=== PATIENT | male | born 1960 | race African-American/Black ===

== ENCOUNTER 2019-10-20 23:15 | Inpatient (IN) | payer MEDICARE, OTHER ==
[2019-10-21] LABS: #Lymphocytes 1.1 thou/uL (1.20-3.40); #Monocytes 0.8 thou/uL (0.11-0.59); #Neutrophils 7.1 thou/uL (1.40-6.50); %Basophils 0.1 % (0.0-1.0); %Eosinophils 0.1 % (0.0-10.0); %Lymphocytes 11.8 % (21.0-51.0); %Monocytes 9.3 % (0.0-10.0); %Neutrophils 78.7 % (42.0-75.0); Hemoglobin 12.4 g/dL (14.0-18.0); Mean Corpuscular Hemoglobin 32.6 pg (27.0-31.0); Mean Platelet Volume 8.7 fL (7.4-10.4); Platelet Count 210 thou/uL (130-400); RBC Distribution Width 12.6 % (11.5-14.5); Red Blood Cell (RBC) Count 3.81 mill/uL (4.70-6.10)
[2019-10-21] MEDS ORDERED: Morphine 2 MG/ML SYRINGE ONE (00:11)
[2019-10-21 00:23] LABS: ALT (SGPT) 12 U/L (8-55); AST (SGOT) 35 U/L (5-34); Albumin 3.3 g/dL (3.5-5.0); Alkaline Phosphatase 75 U/L (40-110); Anion Gap 18 mmol/L (10-20); BUN (Urea Nitrogen) 83 mg/dL (8.4-25.7); Bilirubin, Total 1.2 mg/dL (0.2-1.2); Calc. Creatinine Clearance 0 mL/min (70-130); Calcium 9.1 mg/dL (7.8-10.44); Carbon Dioxide 22 mmol/L (22-29); Chloride 87 mmol/L (98-107); Estimated GFR-MDRD 27; Globulin 5.9 g/dL (2.4-3.5); Glucose 107 mg/dL (70-105); Lipase 81 U/L (8-78); Potassium 3.5 mmol/L (3.5-5.1); Protein, Total 9.2 g/dL (6.0-8.3); Sodium 123 mmol/L (136-145)
[2019-10-21 01:32] LABS: INR-International Normal Ratio 1.9; PTT 33.2 sec (22.9-36.1); Prothrombin Time 21.7 sec (12.0-14.7)
[2019-10-21] MEDS ORDERED: Lorazepam 2 MG/ML VIAL ONE (01:59)
--- NOTE | 2019-10-21 02:35 | PDOC.HHP ---
Hospitalist HPI - History of Present Illness abdominal pain History of Present Illness: Mr. Rooney is a 58-year-old male with a past medical history of cirrhosis, EtOH abuse, hernias, who presents for abdominal pain. Patient was recent recently admitted to [facility] however patient was discharged after pulling out his NG tube. Patient reports he left because he was able to keep food down. Since Saturday however he has not been able to tolerate solids or liquids and his abdominal pain has worsened. Reports his last bowel movement was 2 weeks ago. Does report passing some flatus but none over the past 2 days. Reports a few episodes of nonbloody nonbilious emesis. Denies history of esophageal varices. Patient denies chest pain, shortness of breath, palpitations. Denies numbness or weakness. Patient reports last drink was 3 weeks ago. 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 He is unsure of the physician's name. Work-up in the emergency room included a CT abdomen which showed a small bowel obstruction with multiple dilated loops of bowel. EKG normal sinus rhythm with no ischemic changes. Lipase 81, sodium 123, potassium 3.5, BUN/CR 83/2.95. AST /ALT 35/12. T bili 1.2 albumin 3.3. WBC 9, H/H 12.4/36.6.Patient received lorazepam, morphine, 1 L NS. Vital signs 116/91, 93, 18, 98.3, 97% on room air. Hospitalist ROS - Review of Systems Constitutional: reports: weakness. denies: fever, chills, sweats, malaise, other Eyes: denies: vision change ENT: denies: nose congestion, throat pain Respiratory: denies: cough, dry, shortness of breath, hemoptysis, SOB with excertion, pleuritic pain, sputum, wheezing, other Cardiovascular: denies: chest pain, palpitations, orthopnea, paroxysmal noc. dyspnea, edema, light headedness, other Gastrointestinal: reports: nausea, vomiting, abdominal pain, constipation. denies: diarrhea, melena, hematochezia, other Musculoskeletal: denies: neck pain, shoulder pain, arm pain, back pain, hand pain, leg pain, foot pain, other Skin: denies: rash, lesions, ean, bruising, other Neurological: denies: weakness, numbness, incoordination, change in speech, confusion, seizures, other - Medication Medications: Home medications include 1 atenolol 25 mg 2 furosemide 40 mg 3 meloxicam 15 mg For Protonix 40 mg 5 Spironolactone 25 mg 6 tramadol 50 mg 7 magnesium oxide 400 mg No known drug allergies Hospitalist History - Social History Other Social History: History of cirrhosis, alcohol abuse, status post cholecystectomy, status post hernia repair - Exam General Appearance: ill appearing (Cachexia) Eye: PERRL, anicteric sclera ENT: normocephalic atraumatic, no oropharyngeal lesions, moist mucosa Neck: no JVD Heart: no murmur, no gallops, no rubs, normal peripheral pulses Heart - other findings: Tachycardia Respiratory: CTAB, no wheezes, no rales, no ronchi, normal chest expansion, no tachypnea, normal percussion Gastrointestinal: tender to palpation, distended Gastrointestinal - other findings: Hyperactive bowel sounds Extremities: no cyanosis, no clubbing, no edema Skin - other findings: Poor skin turgor Neurological: normal sensation to touch, no weakness, no focal deficits Musculoskeletal: generalized weakness, diffuse muscle atrophy Psychiatric: A&O x 3, flat affect Hospitalist Results - Labs Result Diagrams: 10/20/19 23:53 10/20/19 23:52 Lab results: WBC 9.0 thou/uL (4.8-10.8) 10/20/19 23:53 Hgb 12.4 g/dL (14.0-18.0) L 10/20/19 23:53 Hct 36.6 % (42.0-52.0) L 10/20/19 23:53 MCV 96.0 fL (78.0-98.0) 10/20/19 23:53 Plt Count 210 thou/uL (130-400) 10/20/19 23:53 Neutrophils % 78.7 % (42.0-75.0) H 10/20/19 23:53 Sodium 123 mmol/L (136-145) L 10/20/19 23:52 Potassium 3.5 mmol/L (3.5-5.1) 10/20/19 23:52 Chloride 87 mmol/L (98-107) L 10/20/19 23:52 Carbon Dioxide 22 mmol/L (22-29) 10/20/19 23:52 BUN 83 mg/dL (8.4-25.7) H 10/20/19 23:52 Creatinine 2.95 mg/dL (0.7-1.3) H 10/20/19 23:52 Glucose 107 mg/dL (70-105) H 10/20/19 23:52 Lactic Acid 1.2 mmol/L (0.5-2.2) 10/20/19 23:52 Calcium 9.1 mg/dL (7.8-10.44) 10/20/19 23:52 Total Bilirubin 1.2 mg/dL (0.2-1.2) 10/20/19 23:52 AST 35 U/L (5-34) H 10/20/19 23:52 ALT 12 U/L (8-55) 10/20/19 23:52 Alkaline Phosphatase 75 U/L (40-110) 10/20/19 23:52 Serum Total Protein 9.2 g/dL (6.0-8.3) H 10/20/19 23:52 Albumin 3.3 g/dL (3.5-5.0) L 10/20/19 23:52 Lipase 81 U/L (8-78) H 10/20/19 23:52 Hospitalist H&P A/P - Problem (1) Cirrhosis of liver Code(s): K74.60 - UNSPECIFIED CIRRHOSIS OF LIVER Status: Acute (2) Hyponatremia Code(s): E87.1 - HYPO-OSMOLALITY AND HYPONATREMIA Status: Acute (3) Small bowel obstruction Code(s): K56.609 - UNSP INTESTNL OBST, UNSP TO PARTIAL VERSUS COMPLETE OBST Status: Acute - Plan Plan: Small bowel obstruction: 4-year-old male with past medical history of cirrhotic liver presents with subacute abdominal pain and no bowel movement for [address] Scan showed high grade obstruction, but no transition point identified. Moderate volume ascites. Hemodynamically stable, lactic acid 1.1, no leukocytosis or fever. Dr. Felton of general surgery consulted who recommended placement of NG tube and possible surgery in the morning. Plan: -NG tube -N.p.o. at midnight -Serial abdominal exams -Monitor electrolytes Hyponatremia: Presents with acute hyponatremia to 123. Na on 10/18/19 from OSH 134. Likely hypovolemic hyponatremia secondary to decreased p.o. intake versus hepatorenal syndrome. Plan: -Na q6hr -Urine osm, serum osm, urine Na -Gentle IV fluids with normal saline, not to correct more than 8 mEq in 24 hours -Consider nephrology consult Acute kidney failure: Presents with acute kidney injury with BUN/CR of 83/2.95. Baseline creatinine 1. Likely secondary to poor p.o. intake in setting of SBO and cirrhosis. Plan: -IVF -Monitor BMP -Avoid nephrotoxic agents where possible Liver cirrhosis: Meld score of 32, patient appears ill and cachectic. Hepatomegaly on exam, no ascites noted however patient acutely distended secondary to SBO. No asterixis. Patient A&O x4. Lactic acid 1.2, WBC 9.0, AST/ALT 35/12, T bili 12. Home medications include atenolol, furosemide, spironolactone, Protonix. Will continue once dosages are confirmed. Plan: -Ammonia level -PT/INR -Monitor for fever, low threshold for SBP abx EtOH abuse: History of alcohol abuse. Patient reports he quit using alcohol 3 weeks ago. Patient is unable to report how much alcohol he was drinking prior. Plan: -ASE protocol with Ativan -Magnesium -Thiamine, vitamin B12 DVT prophylaxis: SQ heparin DNR/DNI Case discussed with attending physician, Dr. Aquino who is in agreement with assessment and plan.
[2019-10-21] MEDS ORDERED: Ondansetron ODT 4 MG TAB SL PRN (03:23)
[2019-10-21] MEDS ORDERED: Ondansetron PF 4 MG/2 ML Vial IVP PRN (03:23)
[2019-10-21] MEDS ORDERED: Sodium Chloride 0.9% 1,000 ML IV SCH (04:30)
[2019-10-21] MEDS: Morphine 2 MG/ML VIAL SLOW IVP PRN (04:56)
[2019-10-21 06:18] LABS: Sodium 128 mmol/L (136-145)
--- NOTE | 2019-10-21 07:39 | RAD ---
CHEST 1 VIEW: INDICATION: NG tube placement. COMPARISON: Prior CT of the abdomen and pelvis dated 10/20/2018. FINDINGS: The dilated gas-filled loops of small bowel persist within the upper abdomen. Gastric catheter proje cts in the region of the gastric fundus. Lung bases are clear. Cholecystectomy clips are seen withi n the right upper quadrant. IMPRESSION: Gastric tube in the region of the gastric body. POS: BH
[2019-10-21] MEDS ORDERED: Thiamine 100 MG TAB PO SCH (09:00)
--- NOTE | 2019-10-21 09:01 | RAD ---
ABDOMINAL SURVEY WITH UPRIGHT CHEST AND 2 VIEW ABDOMEN: Date: 10/21/2019 INDICATION: Small bowel obstruction. Correlation made to CT of 10/21/2019 at 0740 hours. FINDINGS/IMPRESSION: PA chest shows lung de la garza to be clear. NG tube passes through the EG junction with tip in the gastri c fundus. 2 views of abdomen with supine and upright views show gas-filled dilated loops of small bowel. Differ ential air fluid levels are seen in the upright position. Findings are consistent with small bowel ob struction. POS: AGW
--- NOTE | 2019-10-21 09:05 | CT ---
PRELIMINARY REPORT/[facility]/EMERGENCY AFTER HOURS PROCEDURE: EXAM: CT Abdomen and Pelvis Without Intravenous Contrast CLINICAL HISTORY: PT PRESENT TO ED C/O OF DIFFUSE ABDOMINAL PAIN AND NAUSEA. PT STATES HE WAS DISCHARGED FROM ANOTHER H OSPITAL ON SATURDAY FOR UTI AND BOWEL OBSTRUCTION. PT STATES THAT HE HAS NOT HAD A BOWEL MOVEMENT IN 2 WEEKS AND HASNT BEEN ABLE TO KEEP ANYTHING DOWN. SURGICAL HX OF MESH HERNIA REPAIR 1 YEAR AGO TECHNIQUE: Axial computed tomography images of the abdomen and pelvis without intravenous contrast. CONTRAST: None. COMPARISON: None provided. FINDINGS: LUNG BASES: No basilar airspace consolidation or pleural effusion. Centrilobular emphysematous changes. LIVER: The liver has a mildly nodular contour. GALLBLADDER AND BILE DUCTS: Cholecystectomy clips in the gallbladder fossa. No ductal dilation. PANCREAS: Unremarkable. SPLEEN: Unremarkable. ADRENAL GLANDS: Unremarkable. KIDNEYS, URETERS, AND BLADDER: 6 mm calculus in the right renal pelvis. The left kidney is normal. No hydronephrosis. No ureteral or bladder calculi. STOMACH AND BOWEL: Multiple dilated loops of small bowel measure up to 4.5 cm in diameter. Associated mesenteric edema. The distal small bowel is collapsed. A transition point is not clearly identified. Colonic divert iculosis. APPENDIX: No CT evidence for appendicitis. PERITONEUM: Small to moderate volume ascites. No free air. LYMPH NODES: No lymphadenopathy. REPRODUCTIVE: Unremarkable as visualized. VASCULATURE: No aortic aneurysm. ABDOMINAL WALL AND SOFT TISSUES: Unremarkable. BONES: No fracture or suspicious osseous abnormality. Multilevel degenerative disc disease. IMPRESSION: Findings concerning for a high-grade small bowel obstruction. The transition point is not identified . Associated mesenteric edema and small to moderate volume ascites. Nonobstructive calculus at the right renal pelvis measuring 6 mm. Colonic diverticulosis with no evidence of diverticulitis. Mildly nodular contour of the liver suggestive of cirrhosis. ELECTRONICALLY SIGNED BY: Solis Brooks MD Oct 21, 2019 1:32:15 AM CDT This report is intended for review by the ordering physician only, in accordance of law. If you recei ve this report in error, please call [facility] at [phone]. FINAL REPORT: CT ABDOMEN AND PELVIS WITHOUT CONTRAST: I agree with the preliminary report provided. There is a high-grade partial small bowel obstruction with a suggested transition zone in the posterior right lower quadrant of the abdomen on image 53 of series 2. There is a nonobstructing calculus within the right renal pelvis. There are cholecystecto my changes. Slight nodular contour of the liver which may reflect underlying cirrhosis. There is mi ld ascites. POS: BH
[2019-10-21] MEDS ORDERED: Rocuronium Bromide 10 MG/ML (10ML VIAL) ONE (09:36)
[2019-10-21] MEDS ORDERED: Lidocaine 1% PF 5 ML VIAL ONE (09:36)
[2019-10-21] MEDS ORDERED: PROPOFOL 200 MG/20 ML VIAL ONE (09:36)
[2019-10-21] MEDS ORDERED: Succinylcholine Chloride 20 MG/ML 10 ml SYRINGE FS ONE (09:36)
[2019-10-21] MEDS: Sodium Chloride 0.9% 1,000 ML IV SCH ×3 (09:44→18:26)
[2019-10-21] MEDS: Cyanocobalamin (Vitamin B-12) 1,000 MCG TAB PO SCH (09:45)
[2019-10-21] MEDS: Heparin 5,000 UNITS/ML VIAL SC SCH ×3 (09:45→20:57)
[2019-10-21] MEDS ORDERED: Piperacillin/Tazobactam 3.375 GM in Sodium Chloride 0.9% 100 ML IVPB SCH (12:00)
--- NOTE | 2019-10-21 12:03 | PDOC.HOSPP ---
- Subjective Encounter Date: 10/21/19 Subjective: Patient is n.p.o. NG tube on intermittent suction. He still complaining of abdominal soreness. No bowel movements or passage of gas yet. - Objective Vital Signs & Weight: Vital Signs (12 hours) Temp Pulse Resp BP Pulse Ox 10/21/19 07:20 97.7 F 98 16 121/84 99 10/21/19 03:15 97.5 F L 99 18 124/86 100 Weight Weight 136 lb Result Diagrams: 10/20/19 23:53 10/21/19 06:00 Hospitalist ROS - Medication Medications: Active Medications Generic Name Dose Route Start Last Admin Trade Name Freq PRN Reason Stop Dose Admin Cyanocobalamin 1,000 mcg 10/21/19 09:00 10/21/19 09:45 Vitamin B-12 PO Not Given DAILY [facility] Heparin Sodium (Porcine) 5,000 units 10/21/19 09:00 10/21/19 09:45 Heparin SC 5,000 units TID KACI Administration Sodium Chloride 1,000 mls @ 115 mls/hr 10/21/19 07:37 10/21/19 09:44 Normal Saline 0.9% IV Not Given .[id number] KACI Morphine Sulfate 2 mg 10/21/19 04:13 10/21/19 04:56 Morphine SLOW IVP 2 mg Q4H PRN Administration Moderate to Severe Pain (6-10) Thiamine HCl 100 mg 10/21/19 09:00 10/21/19 09:45 Thiamine PO Not Given DAILY KACI - Exam General Appearance: awake alert ENT: normocephalic atraumatic Neck: supple, no JVD Heart: RRR Respiratory: normal chest expansion, no tachypnea Gastrointestinal: soft, tender to palpation, distended Neurological: cranial nerve grossly intact, no new deficit Hosp A/P (1) Small bowel obstruction Code(s): K56.609 - UNSP INTESTNL OBST, UNSP TO PARTIAL VERSUS COMPLETE OBST Status: Acute (2) Cirrhosis of liver Code(s): K74.60 - UNSPECIFIED CIRRHOSIS OF LIVER Status: Acute (3) Hyponatremia Code(s): E87.1 - HYPO-OSMOLALITY AND HYPONATREMIA Status: Acute - Plan Small bowel obstruction with dehydration and hypovolemic hyponatremia. Continue n.p.o. and NG tube with low intermittent suction. Surgical team consulted. Sodium level is improving. Continue gentle hydration.
[2019-10-21 12:28] LABS: Phosphorus 2.7 mg/dL (2.3-4.7)
[2019-10-21 12:31] LABS: Anion Gap 20 mmol/L (10-20); BUN (Urea Nitrogen) 69 mg/dL (8.4-25.7); Calc. Creatinine Clearance 30 mL/min (70-130); Carbon Dioxide 18 mmol/L (22-29); Chloride 94 mmol/L (98-107); Estimated GFR-MDRD 36; Glucose 99 mg/dL (70-105); Magnesium 2.1 mg/dL (1.6-2.6); Potassium 3.3 mmol/L (3.5-5.1); Sodium 129 mmol/L (136-145)
[2019-10-21] MEDS ORDERED: Sodium Chloride 0.9% 100 ML ONE (12:41)
[2019-10-21] MEDS ORDERED: Piperacillin/Tazobactam 3.375 GM VIAL ONE (12:41)
[2019-10-21 13:06] LABS: SARS-CoV-2 MS2 Positive; SARS-CoV-2 N Gene Negative; SARS-CoV-2 S Gene Negative; SARS-CoV-2 by NAA Not Detected (NotDetected); SARS-CoV-2 orf1ab Negative
[2019-10-21] MEDS ORDERED: SUGAMMADEX SODIUM 200 MG/2 ML VIAL ONE (13:27)
[2019-10-21] MEDS ORDERED: Fentanyl 100 MCG/2 ML VIAL ONE ×2 (13:27→15:10)
--- NOTE | 2019-10-21 13:34 | CON ---
DATE OF CONSULTATION: HISTORY OF PRESENT ILLNESS: Pio Rooney is a 58-year-old black male, four weeks alcohol cessation, prior to that alcoholism, has had this several weeks of GI problems with nausea, vomiting, and abdominal distention. He has lost weight. He has become weak. He has not been able to ambulate. The patient lives with his in [place]. They took him to [place] 8 days ago where he stayed there in the hospital until he was released Saturday 4 days ago. Apparently, the patient removed his NG tube accidentally and he was discharged home. He came to our emergency room yesterday complaining of nausea, vomiting, abdominal distention, could not hold anything down. His white count was 9 and hemoglobin was 12. His sodium was 123, potassium 3.5, BUN 83, creatinine 2.95, and GFR 27. His repeat sodium this morning was 128. The patient's magnesium was 2.1. He had a CAT scan of the abdomen and pelvis without contrast noting changes consistent with bowel obstruction. There was no gas or stool in his colon. The patient reports he has not passed stool or flatus in over a week. He has an NG tube placed and has had feculent output. The patient has been rehydrated. His albumin is 3.3 and lipase is 81. His abdomen is distended and tympanitic. Repeat abdominal x-rays this morning revealed changes consistent with a complete bowel obstruction. Given the chronicity of his problems, I would recommend laparoscopy, possible laparotomy today. I have discussed with the patient, who agrees. I have called the patient's and niece and discussed with them on telephone these recommendations and they agreed. We will plan placement of central line. We will request dietitian to aid in TPN recommendations perioperatively. We will plan that operation today. There have been no symptoms of COVID. ALLERGIES: NONE. HABITS: Tobacco, one cigarette per day. Alcohol, none for 3.5 to 4 weeks. Two to three or more mixed drinks a day prior to that. MEDICATIONS: 1. Meloxicam 15 mg a day. 2. Tramadol p.r.n. pain. 3. Spironolactone 25 mg a day. 4. Omeprazole 40 mg a day. 5. Furosemide 40 mg a day. 6. Atenolol 25 mg daily. PAST SURGICAL HISTORY: Laparoscopic cholecystectomy; umbilical hernia repair with mesh in the past, it has recurred, it is reducible; left inguinal hernia repair. PAST MEDICAL HISTORY: Cirrhosis secondary to alcoholism. He has had viral studies, have been negative. He has had paracentesis in the past 3 times this year, but since he has been placed on medical therapy, he has not had problems with accumulation of ascites. REVIEW OF SYSTEMS: Otherwise, noncontributory. FAMILY HISTORY: Noncontributory. PHYSICAL EXAMINATION: VITAL SIGNS: Weight 136 pounds, height 5 feet 11 inches, BMI 19, temperature 97.9, pulse 98, respirations 16, and blood pressure 118/89. LUNGS: Clear to auscultation. CARDIAC: Regular rate and rhythm without murmur or gallop. ABDOMEN: Soft, distended, and tympanitic. No fluid wave. Umbilical hernia easily reducible. There is a very small defect less than a centimeter. Scars per history of laparoscopic cholecystectomy. EXTREMITIES: No ankle edema. LABORATORY DATA: Sodium 123 on admission, 128 on repeat this morning; chloride 87; BUN and creatinine of 83 and 2.95; GFR 27; lactate acid 1.2; bilirubin 1.2; AST and ALT of 35 and 12 respectively; alk phos 75; lipase 81. PT 21, INR 1.9, and PTT 33. ASSESSMENT/PLAN: 1. CAT scan, radiological findings, history and exam all consistent with bowel obstruction complete. I do not see any benefit and performed a small bowel follow-through. We would recommend laparoscopy, possible laparotomy, and placement of a central line. I have discussed with the patient and his family members per telephone. They all agree. Plan is to perform that today. 2. Alcoholism. 3. Severe deconditioning and weakness. We will ask Physical Therapy to see him in consult, ambulation, activity. Job ID: [id number]
[2019-10-21] MEDS ORDERED: Lidocaine 1% w/Epinephrine 1:100K 20 ML VIAL ONE (13:58)
[2019-10-21] MEDS ORDERED: Bupivacaine PF 0.5% 30 ML VIAL ONE (13:58)
[2019-10-21] MEDS ORDERED: Dextrose 50% Abboject 50 ML SYRINGE SLOW IVP PRN (15:27)
[2019-10-21] MEDS ORDERED: Dextrose 5% in Water 1,000 ML IV PRN (15:27)
[2019-10-21] MEDS ORDERED: Multivitamins, Adult 10 ML, Folic Acid 1 MG, Thiamine HCl 100 MG in Dextrose 5 %-0.45 %... IV SCH (16:00)
--- NOTE | 2019-10-21 16:48 | RAD ---
Chest one view HISTORY: Central line placement. COMPARISON: Earlier exam on same date. FINDINGS: Cardiac silhouette and pulmonary vasculature are stable. Mediastinum is midline. Tip of a n ew left internal jugular central venous catheter projects over the right atrium. No evidence of pneumothorax. Nasogastric tube descends the abdomen with the proximal port at the level of the GE junction. Free intraperitoneal gas in the left upper quadrant consistent with recent surgery. No lobar consolidation. IMPRESSION : Left internal jugular catheter in good radiographic position. Nasogastric tube should probably be advanced approximately 10 cm for better positioning. Interval abdominal surgery.
[2019-10-21] MEDS: Albumin 25% 25 GM/100 ML BOT IVPB SCH ×2 (17:10→20:59)
[2019-10-21] MEDS ORDERED: [UNRECOGNIZED DRUG - OTHER] IV SCH ×2 (19:00→22:00)
[2019-10-21] MEDS ORDERED: SODIUM CHLORIDE IV SCH ×2 (19:00→22:00)
[2019-10-21] MEDS ORDERED: POTASSIUM ACETATE IV SCH ×2 (19:00→22:00)
[2019-10-21] MEDS ORDERED: POTASSIUM CHLORIDE IV SCH ×2 (19:00→22:00)
--- NOTE | 2019-10-21 19:23 | OP ---
DATE OF PROCEDURE: 10/21/2019 PREOPERATIVE DIAGNOSES: 1. Small-bowel obstruction secondary to adhesions from prior surgery. 2. Umbilical hernia. 3. History of alcoholism. 4. Cirrhosis. 5. Severe dehydration. 6. Malnutrition. POSTOPERATIVE DIAGNOSES: 1. Small-bowel obstruction secondary to adhesions from prior surgery. 2. Umbilical hernia. 3. History of alcoholism. 4. Cirrhosis. 5. Severe dehydration. 6. Malnutrition. 7. Bowel obstruction secondary to adhesions from previous ventral hernia repair with mesh, upper abdomen, midline. PROCEDURES PERFORMED: Laparoscopic adhesiolysis. Umbilical hernia repair without mesh. Resection of redundant skin and subcutaneous tissue. Left IJ central line, ultrasound used. ANESTHESIA: General, local 0.5% Marcaine 30 mL mixed with 1% Xylocaine with epinephrine 20 mL. PROCEDURE IN DETAIL: Patient was taken to the operating room. Under general anesthesia, Clements catheter was placed. Right radial arterial line was placed. Neck and chest were prepared with ChloraPrep and draped in routine fashion. Ultrasound was used to cannulate the left internal jugular vein. J-wire threaded, trocar catheter removed. Skin site enlarged sharply. Dilator was placed, removed, distal port of the triple-lumen catheter was placed over the J-wire into the superior vena cava and J-wire was removed. Catheter was secured with 2 interrupted suture of 3-0 silk. Each port was aspirated of blood, flushed with saline solution, connected IV fluid solution. Abdomen was clipped of hair, prepared with ChloraPrep and draped in routine fashion. Patient had a very large umbilical hernia with redundant stressed out skin with a small defect. This was easily reducible. Once the hair on his abdomen was clipped, it was appreciated that he had an area as the patient and family described the laparoscopic mesh repair of incisional hernia of upper abdomen. There were adhesions noted. Once laparoscopy was initiated, left lateral subcostal incision was made, pneumoperitoneum to 15 mmHg was obtained with a Veress needle, replaced with a 5 port laparoscope inserted. Left mid lateral abdominal incision was made, left lower quadrant lateral incision made, and 5 ports placed. Small bowel was markedly dilated. There were adhesions of omentum to the anterior abdominal wall from the previous hernia repair in the midline located between the umbilicus and the xiphoid, upper abdomen midline. These were taken down with the LigaSure. There was a band of tissue causing the complete bowel obstruction that was taken down. Bowel was markedly dilated. I could not evaluate all the bowel, but I was able to appreciate the terminal ileum that was markedly decompressed and very small consistent with chronic obstruction. Small bowel was traced retrograde back to the area of transition where band was noted more proximal to which there was markedly dilated small bowel. It was felt at this point, although I had not evaluated the entire bowel that this was the offending problem. There was a small amount of ascites that was evacuated with the suction. Pneumoperitoneum reduced. Good hemostasis noted. All instruments removed. The umbilical hernia had markedly dilated skin. The skin was excised elliptically transversely removing the thinned out skin. The fascial defect identified, closed in [id number] type fashion with interrupted suture of 0 PDS pop offs. Mesh was not used as the defect was very small. The subcutaneous tissues were approximated with 3-0 Monocryl, skin with subdermal 4-0 Monocryl and [place] glue applied. Trocar sites skin approximated with 4-0 Monocryl subcuticular. Dermabond applied. Local anesthetic was infiltrated in the skin and subcutaneous tissue about the operative site. Patient tolerated the procedure well. Job ID: [id number]
[2019-10-22] MEDS: Albumin 25% 25 GM/100 ML BOT IVPB SCH ×3 (02:59→18:03)
[2019-10-22 03:12] LABS: INR-International Normal Ratio 1.8; Prothrombin Time 20.5 sec (12.0-14.7)
[2019-10-22 03:40] LABS: ALT (SGPT) 9 U/L (8-55); AST (SGOT) 28 U/L (5-34); Albumin 3.5 g/dL (3.5-5.0); Alkaline Phosphatase 51 U/L (40-110); Anion Gap 19 mmol/L (10-20); BUN (Urea Nitrogen) 57 mg/dL (8.4-25.7); Bilirubin, Total 1.3 mg/dL (0.2-1.2); Calc. Creatinine Clearance 34 mL/min (70-130); Calcium 8.4 mg/dL (7.8-10.44); Carbon Dioxide 16 mmol/L (22-29); Chloride 102 mmol/L (98-107); Estimated GFR-MDRD 41; Globulin 3.7 g/dL (2.4-3.5); Glucose 97 mg/dL (70-105); Potassium 3.2 mmol/L (3.5-5.1); Protein, Total 7.2 g/dL (6.0-8.3); Sodium 134 mmol/L (136-145)
[2019-10-22 04:43] LABS: Band 24 % (5-11); Hemoglobin 11.5 g/dL (14.0-18.0); Hypochromia SLIGHT = 6-15 cells (100X) (0-5/hpf); Lymphocytes 1 % (21-51); MDiff Complete? YES; Mean Corpuscular Hemoglobin 31.9 pg (27.0-31.0); Mean Corpuscular Volume 96.8 fL (78.0-98.0); Mean Platelet Volume 8.9 fL (7.4-10.4); Monocytes 3 % (0-10); Neutrophil 72 % (42-75); Platelet Count 201 thou/uL (130-400); Platelet Morphology Comment Appears Adequate; RBC Distribution Width 12.7 % (11.5-14.5); Red Blood Cell (RBC) Count 3.61 mill/uL (4.70-6.10); White Blood Cell (WBC) Count 21.4 thou/uL (4.8-10.8)
--- NOTE | 2019-10-22 09:17 | PRG ---
DATE OF SERVICE: 10/22/2019 SUBJECTIVE: Mr. Rooney is doing well today. He feels much better after having a small-bowel obstruction release. OBJECTIVE: VITAL SIGNS: Temperature 98 degrees, blood pressure 117/79. Urine output is good 725 mL postop. Clements in place. We will remove tomorrow morning Saturday. Gastric drainage 350 mL. LUNGS: Clear to auscultation. CARDIAC: Regular rhythm. No murmur or gallop. ABDOMEN: Soft, slightly distended, tympanitic. Bowel sounds present. He has passed flatus. EXTREMITIES: No edema. LABORATORY DATA: White count 21,000, hemoglobin 11. Differential 24% bands. Sodium 134, potassium 3.2, carbon dioxide 16, chloride 102, BUN 57, creatinine 2.04, GFR 41. ASSESSMENT AND PLAN: 1. Small-bowel obstruction, chronic with resulting malnutrition. Today, we can remove his NG tube. Continue sips and chips, and sips of water, ice chips. We would continue total parenteral nutrition. Hopefully, if he does well without vomiting, we can advance him to clear to full liquids later today or tomorrow. 2. Deconditioning, physical therapy, mobility, nurse is to get him up in a chair 3 to 4 times a day. He is up in a chair this morning. 3. Clements catheter. Remove in the morning. 4. Malnutrition. He is on total parenteral nutrition. 5. Alcoholism. Alcohol cessation 4 weeks ago. He has committed alcohol cessation. Continue multivitamins and total parenteral nutrition and support. Job ID: [id number]
[2019-10-22] MEDS: Cyanocobalamin (Vitamin B-12) 1,000 MCG TAB PO SCH (09:29)
[2019-10-22] MEDS: Sodium Chloride 0.9% 1,000 ML IV SCH ×2 (09:30→18:07)
[2019-10-22] MEDS: Heparin 5,000 UNITS/ML VIAL SC SCH ×2 (09:30→20:28)
[2019-10-22] MEDS: Morphine 2 MG/ML VIAL SLOW IVP PRN ×2 (12:15→20:29)
--- NOTE | 2019-10-22 18:25 | PDOC.HOSPP ---
- Subjective Encounter Date: 10/22/19 Subjective: The patient stated that his abdominal pain is better today. - Objective Vital Signs & Weight: Vital Signs (12 hours) Temp Pulse Resp BP Pulse Ox 10/22/19 15:35 97.7 F 98 16 147/79 H 98 10/22/19 13:56 100 10/22/19 10:25 97.4 F L 99 16 125/86 100 10/22/19 07:31 98.0 F 10/22/19 07:26 100 Weight Admit Weight 136 lb Weight 136 lb Most Recent Monitor Data Heart Rate from ECG 105 NIBP 108/80 NIBP BP-Mean 89 Respiration from ECG 26 SpO2 100 I&O: 10/21/19 10/22/19 10/23/19 06:59 06:59 06:59 Intake Total 2154 Output Total 1075 Balance 1079 Result Diagrams: 10/22/19 02:44 10/22/19 02:44 Additional Labs: Accuchecks 10/22/19 10/22/19 10/21/19 17:53 06:12 19:05 POC Glucose 169 H 219 H 92 Hospitalist ROS - Medication Medications: Active Medications Generic Name Dose Route Start Last Admin Trade Name Freq PRN Reason Stop Dose Admin Cyanocobalamin 1,000 mcg 10/21/19 09:00 10/22/19 09:29 Vitamin B-12 PO 1,000 mcg DAILY [facility] Administration Heparin Sodium (Porcine) 5,000 units 10/21/19 21:00 10/22/19 09:30 Heparin SC 5,000 units BID [facility] Administration Sodium Chloride 1,000 mls @ 115 mls/hr 10/21/19 07:37 10/22/19 18:07 Normal Saline 0.9% IV 1,000 mls .[id number] [facility] Administration Sodium Chloride 140 meq/ 1,551.8159 mls @ 63.784 mls/hr 10/21/19 19:00 02:47 Potassium Acetate 10 meq/ IV 1,551.8159 mls Potassium Chloride 40 meq/ INF [facility] Administration Calcium Chloride 10 meq/ Magnesium Sulfate 10 meq/ Multivitamins 10 ml/ Chromium/ Copper/Manganese/Seleni/Zn 1 ml/ Fat Emulsion Intravenous 250 ml/ Dextrose/Water/ Sterile Water/ Amino Acids Folic Acid 1 mg/ Thiamine HCl 51.2 mls @ 102.4 mls/hr 10/22/19 09:00 09:29 100 mg/ Sodium Chloride IV 51.2 mls 0900 [facility] Administration As Directed Morphine Sulfate 2 mg 10/21/19 04:13 10/22/19 12:15 Morphine SLOW IVP 2 mg Q4H PRN Administration Moderate to Severe Pain (6-10) Sodium Chloride 10 ml 10/21/19 21:00 10/22/19 09:30 Flush - Normal Saline IVF 10 ml Q12HR [facility] Administration - Exam General Appearance: awake alert ENT: normocephalic atraumatic Neck: supple, no JVD Heart: RRR Respiratory: normal chest expansion, no tachypnea Gastrointestinal: soft, non-tender, non-distended, normal bowel sounds Neurological: cranial nerve grossly intact, no focal deficits Hosp A/P (1) Small bowel obstruction Code(s): K56.609 - UNSP INTESTNL OBST, UNSP TO PARTIAL VERSUS COMPLETE OBST Status: Acute (2) Cirrhosis of liver Code(s): K74.60 - UNSPECIFIED CIRRHOSIS OF LIVER Status: Acute (3) Hyponatremia Code(s): E87.1 - HYPO-OSMOLALITY AND HYPONATREMIA Status: Acute (4) BRANDI (acute kidney injury) Code(s): N17.9 - ACUTE KIDNEY FAILURE, UNSPECIFIED Status: Acute (5) Hypokalemia Code(s): E87.6 - HYPOKALEMIA Status: Acute - Plan Status post lysis of the adhesions laparoscopically and repair of deep umbilical hernia. NG tube was discontinued. No nausea or vomiting. Tolerating TPN. Hypokalemia is present. Replace potassium. Creatinine level is improving sodium level is back to normal.
[2019-10-22] MEDS ORDERED: Potassium Chloride 20 MEQ TAB PO SCH (18:30)
[2019-10-22] MEDS: [UNRECOGNIZED DRUG - OTHER] IV SCH (22:24)
[2019-10-22] MEDS: SODIUM CHLORIDE IV SCH (22:24)
[2019-10-22] MEDS: POTASSIUM CHLORIDE IV SCH (22:24)
[2019-10-22] MEDS: POTASSIUM ACETATE IV SCH (22:24)
--- NOTE | 2019-10-22 22:47 | PDOC.FMACP ---
Advance Care Planning - Problem (1) Palliative care encounter Status: Acute Code(s): Z51.5 - ENCOUNTER FOR PALLIATIVE CARE (2) BRANDI (acute kidney injury) Status: Acute Code(s): N17.9 - ACUTE KIDNEY FAILURE, UNSPECIFIED (3) Small bowel obstruction Status: Acute Code(s): K56.609 - UNSP INTESTNL OBST, UNSP TO PARTIAL VERSUS COMPLETE OBST - Note Participants: patient, palliative care Summary: Palliative Care introduced Advanced Care Planning. The diagnosis, prognosis and goals of care were discussed. Appropriate forms and documentation to accomplish the goals of care were discussed. All questions were answered. Mr Rooney states he has directives and MPOA completed and at home, relayed he will have his daughter bring to the hospital for to place on his chart for medical records. The Palliative Care Team will continue to assist with completion of any outstanding forms as identified. Time Spent (mins): 15
[2019-10-23] MEDS: Morphine 2 MG/ML VIAL SLOW IVP PRN ×5 (01:36→19:33)
[2019-10-23 03:49] LABS: #Lymphocytes 0.8 thou/uL (1.20-3.40); #Neutrophils 12.7 thou/uL (1.40-6.50); %Eosinophils 0.1 % (0.0-10.0); %Lymphocytes 5.6 % (21.0-51.0); %Neutrophils 87.3 % (42.0-75.0); Hemoglobin 9.3 g/dL (14.0-18.0); Mean Corpuscular HGB CONC 33.1 g/dL (32.0-36.0); Mean Corpuscular Hemoglobin 32.3 pg (27.0-31.0); Mean Corpuscular Volume 97.5 fL (78.0-98.0); Platelet Count 146 thou/uL (130-400); RBC Distribution Width 12.8 % (11.5-14.5); Red Blood Cell (RBC) Count 2.88 mill/uL (4.70-6.10); White Blood Cell (WBC) Count 14.6 thou/uL (4.8-10.8)
[2019-10-23 04:09] LABS: ALT (SGPT) Less than 7 U/L (8-55); AST (SGOT) 20 U/L (5-34); Albumin 3.5 g/dL (3.4-4.8); Alkaline Phosphatase 43 U/L (40-110); Anion Gap 12 mmol/L (10-20); BUN (Urea Nitrogen) 37 mg/dL (8.4-25.7); Bilirubin, Total 0.6 mg/dL (0.2-1.2); Calc. Creatinine Clearance 50 mL/min (70-130); Calcium 8.9 mg/dL (7.8-10.44); Carbon Dioxide 20 mmol/L (23-31); Chloride 112 mmol/L (98-107); Estimated GFR-MDRD 65; Globulin 3.3 g/dL (2.4-3.5); Glucose 164 mg/dL (80-115); Potassium 3.5 mmol/L (3.5-5.1); Protein, Total 6.8 g/dL (5.8-8.1); Sodium 140 mmol/L (136-145)
[2019-10-23] MEDS: Sodium Chloride 0.9% 1,000 ML IV SCH ×2 (06:38→13:06)
[2019-10-23] MEDS: Heparin 5,000 UNITS/ML VIAL SC SCH ×2 (08:09→22:23)
[2019-10-23] MEDS: Cyanocobalamin (Vitamin B-12) 1,000 MCG TAB PO SCH (08:09)
--- NOTE | 2019-10-23 09:58 | PDOC.HOSPP ---
- Subjective Encounter Date: 10/23/19 Subjective: The patient reported worsening abdominal discomfort. His abdomen is more distended than yesterday. Denies any bowel movements but is still passing gas. Denies nausea or vomiting. Tolerating liquid diet. - Objective Vital Signs & Weight: Vital Signs (12 hours) Temp Pulse Resp BP Pulse Ox 10/23/19 07:27 98.3 F 116 H 18 143/92 H 100 10/23/19 04:46 98.3 F 123 H 24 H 123/88 100 10/23/19 04:41 98.3 F 123 H 24 H 124/88 100 10/23/19 03:33 99.4 F 120 H 32 H 115/76 100 10/23/19 00:30 98.7 F 98 32 H 122/80 98 Weight Admit Weight 136 lb Weight 136 lb Most Recent Monitor Data Heart Rate from ECG 105 NIBP 108/80 NIBP BP-Mean 89 Respiration from ECG 26 SpO2 100 I&O: 10/22/19 10/23/19 10/24/19 06:59 06:59 06:59 Intake Total 2154 4663 Output Total 1075 1550 Balance 1079 3113 Result Diagrams: 10/23/19 03:35 10/23/19 03:35 Additional Labs: Accuchecks 10/23/19 10/23/19 10/22/19 05:15 00:00 17:53 POC Glucose 133 H 156 H 169 H Hospitalist ROS - Medication Medications: Active Medications Generic Name Dose Route Start Last Admin Trade Name Yazanq PRN Reason Stop Dose Admin Cyanocobalamin 1,000 mcg 10/21/19 09:00 10/23/19 08:09 Vitamin B-12 PO 1,000 mcg DAILY [facility] Administration Heparin Sodium (Porcine) 5,000 units 10/21/19 21:00 10/23/19 08:09 Heparin SC 5,000 units BID [facility] Administration Sodium Chloride 1,000 mls @ 115 mls/hr 10/21/19 07:37 10/23/19 06:38 Normal Saline 0.9% IV 1,000 mls .[id number] [facility] Administration Folic Acid 1 mg/ Thiamine HCl 51.2 mls @ 102.4 mls/hr 10/22/19 09:00 08:20 100 mg/ Sodium Chloride IV 51.2 mls 0900 [facility] Administration As Directed Sodium Chloride 140 meq/ 1,551.8159 mls @ 63.784 mls/hr 10/22/19 22:00 22:24 Potassium Acetate 10 meq/ IV 1,551.8159 mls Potassium Chloride 40 meq/ 2200 [facility] Administration Calcium Chloride 10 meq/ Magnesium Sulfate 10 meq/ Multivitamins 10 ml/ Chromium/ Copper/Manganese/Seleni/Zn 1 ml/ Fat Emulsion Intravenous 250 ml/ Dextrose/Water/ Sterile Water/ Amino Acids Morphine Sulfate 2 mg 10/21/19 04:13 10/23/19 06:37 Morphine SLOW IVP 2 mg Q4H PRN Administration Moderate to Severe Pain (6-10) Sodium Chloride 10 ml 10/21/19 21:00 10/23/19 08:09 Flush - Normal Saline IVF 10 ml Q12HR [facility] Administration - Exam General Appearance: awake alert ENT: normocephalic atraumatic Neck: supple, no JVD Respiratory: no tachypnea, normal percussion Gastrointestinal: soft, tender to palpation, distended Neurological: cranial nerve grossly intact, no new deficit Hosp A/P (1) Small bowel obstruction Code(s): K56.609 - UNSP INTESTNL OBST, UNSP TO PARTIAL VERSUS COMPLETE OBST Status: Acute (2) Cirrhosis of liver Code(s): K74.60 - UNSPECIFIED CIRRHOSIS OF LIVER Status: Acute (3) Hyponatremia Code(s): E87.1 - HYPO-OSMOLALITY AND HYPONATREMIA Status: Acute (4) BRANDI (acute kidney injury) Code(s): N17.9 - ACUTE KIDNEY FAILURE, UNSPECIFIED Status: Acute (5) Hypokalemia Code(s): E87.6 - HYPOKALEMIA Status: Acute - Plan Status post lysis of the adhesions laparoscopically and repair of deep umbilical hernia. NG tube was discontinued. No nausea or vomiting. BRANDI is improving. The patient is tolerating liquid diet and TPN. Encourage ambulation.
[2019-10-23] MEDS ORDERED: Furosemide 40 MG/4 ML VIAL SLOW IVP SCH (13:00)
--- NOTE | 2019-10-23 13:17 | RAD ---
RADIOGRAPH CHEST 1 VIEW: DATE: 10/23/2019 HISTORY: 59-year-old male with central venous catheter. COMPARISON: 10/21/2019 FINDINGS: There are no airspace densities, pulmonary edema, pneumothorax, or cardiomegaly. The lateral costophr enic angles are sharp. The left IJ central line remains with distal tip overlying SVC/right atrial junction. Mild tortuosity of thoracic aorta. No other mediastinal widening. The previously demonstrat ed esophagogastric tube has been removed. There has been no other interval change. IMPRESSION: 1. No acute cardiopulmonary findings. 2. Left internal jugular central venous catheter remains in place.
--- NOTE | 2019-10-23 13:29 | PRG ---
DATE OF SERVICE: 10/23/2019 SUBJECTIVE: Pio Rooney is not tolerating his diet. He is becoming more distended. He is not passing any flatus or stool. He is suffering belching, although not having any nausea or vomiting. OBJECTIVE: VITAL SIGNS: Temperature 97.3 degrees, heart rate 114, respiratory rate 20, blood pressure 167/109. LUNGS: Clear to auscultation with some rhonchi in the base. CARDIAC: Sinus tachycardia. ABDOMEN: Distended, tympanitic, protuberant. Abdomen, however, is soft without guarding. Laparoscopic wounds well healed. Umbilical hernia looks okay. EXTREMITIES: Unremarkable. LABORATORY DATA: White count is 14,000, hemoglobin 9.3. His BUN is 37, creatinine 1.36, and potassium is 3.5. ASSESSMENT AND PLAN: 1. The patient's GI function is not returning as quickly as we expected. We would discontinue his diet, give him sips and chips only. Hopefully, we can avoid an NG tube by making him n.p.o. If he starts vomiting, he will need an NG tube. We would increase his activities. 2. Acute kidney injury, improving with hydration. He seems to be urinating adequately, and urine seems to be dilute. His renal function is improving. I would give him a dose of Lasix keep TPN only running and discontinue his IV fluids and follow his renal function. Obtain a portable chest x-ray. Increase activity up out of bed to 3 times a day. Await return of GI function. Continue TPN. Job ID: [id number]
--- NOTE | 2019-10-23 20:30 | RAD ---
Exam: Chest one view HISTORY:Evaluate NG tube placement Comparison: 10/23/2019 at 12:57 PM FINDINGS: Only the lower chest is evaluated. There is a nasogastric tube terminating in the stomach. Multiple d istended small bowel loops are identified. Partially visualized vascular catheter terminates over the right atrium. IMPRESSION: Nasogastric tube in the stomach.
[2019-10-23] MEDS: POTASSIUM ACETATE IV SCH (23:06)
[2019-10-23] MEDS: SODIUM CHLORIDE IV SCH (23:06)
[2019-10-23] MEDS: POTASSIUM CHLORIDE IV SCH (23:06)
[2019-10-23] MEDS: [UNRECOGNIZED DRUG - OTHER] IV SCH (23:06)
[2019-10-24] MEDS: Morphine 2 MG/ML VIAL SLOW IVP PRN ×6 (00:03→22:11)
[2019-10-24 05:24] LABS: #Lymphocytes 0.9 thou/uL (1.20-3.40); #Monocytes 1.2 thou/uL (0.11-0.59); #Neutrophils 13.6 thou/uL (1.40-6.50); %Eosinophils 0.1 % (0.0-10.0); %Lymphocytes 5.5 % (21.0-51.0); %Monocytes 7.7 % (0.0-10.0); %Neutrophils 86.7 % (42.0-75.0); Mean Corpuscular HGB CONC 31.8 g/dL (32.0-36.0); Mean Corpuscular Hemoglobin 31.8 pg (27.0-31.0); Mean Corpuscular Volume 99.9 fL (78.0-98.0); Platelet Count 177 thou/uL (130-400); RBC Distribution Width 12.8 % (11.5-14.5); Red Blood Cell (RBC) Count 3.16 mill/uL (4.70-6.10); White Blood Cell (WBC) Count 15.7 thou/uL (4.8-10.8)
[2019-10-24 05:47] LABS: ALT (SGPT) 9 U/L (8-55); AST (SGOT) 25 U/L (5-34); Albumin 3.2 g/dL (3.4-4.8); Alkaline Phosphatase 57 U/L (40-110); Anion Gap 12 mmol/L (10-20); BUN (Urea Nitrogen) 27 mg/dL (8.4-25.7); Bilirubin, Total 0.7 mg/dL (0.2-1.2); Calc. Creatinine Clearance 52 mL/min (70-130); Calcium 9.7 mg/dL (7.8-10.44); Carbon Dioxide 22 mmol/L (23-31); Chloride 111 mmol/L (98-107); Estimated GFR-MDRD 68; Globulin 4.3 g/dL (2.4-3.5); Glucose 138 mg/dL (80-115); Potassium 3.5 mmol/L (3.5-5.1); Protein, Total 7.5 g/dL (5.8-8.1); Sodium 141 mmol/L (136-145)
[2019-10-24] MEDS: Heparin 5,000 UNITS/ML VIAL SC SCH ×2 (09:17→20:54)
[2019-10-24] MEDS: Cyanocobalamin (Vitamin B-12) 1,000 MCG TAB PO SCH (09:17)
--- NOTE | 2019-10-24 11:19 | PDOC.HOSPP ---
- Subjective Encounter Date: 10/24/19 Encounter Time: 11:17 Subjective: Mr. Rooney was seen today in follow-up of SBO. He had the NG tube replaced. He notes some abdominal discomfort, but otherwise ok. - Objective Vital Signs & Weight: Vital Signs (12 hours) Temp Pulse Resp BP Pulse Ox 10/24/19 07:08 97.3 F L 123 H 18 131/97 H 99 10/24/19 03:32 97.5 F L 103 H 17 139/103 H 99 10/23/19 23:37 97.3 F L 128 H 17 149/108 H 99 Weight Admit Weight 136 lb Weight 136 lb Most Recent Monitor Data Heart Rate from ECG 105 NIBP 108/80 NIBP BP-Mean 89 Respiration from ECG 26 SpO2 100 I&O: 10/23/19 10/24/19 10/25/19 06:59 06:59 06:59 Intake Total 4663 2809 Output Total 1550 2650 Balance 3113 159 Result Diagrams: 10/24/19 05:07 10/24/19 05:07 Additional Labs: Accuchecks 10/24/19 10/23/19 10/23/19 06:28 23:48 18:05 POC Glucose 143 H 150 H 159 H 10/23/19 11:55 POC Glucose 152 H Hospitalist ROS - Medication Medications: Active Medications Generic Name Dose Route Start Last Admin Trade Name Wilmer PRN Reason Stop Dose Admin Cyanocobalamin 1,000 mcg 10/21/19 09:00 10/24/19 09:17 Vitamin B-12 PO Not Given DAILY [facility] Heparin Sodium (Porcine) 5,000 units 10/21/19 21:00 10/24/19 09:17 Heparin SC 5,000 units BID [facility] Administration Folic Acid 1 mg/ Thiamine HCl 51.2 mls @ 102.4 mls/hr 10/22/19 09:00 09:17 100 mg/ Sodium Chloride IV Not Given 0900 [facility] As Directed Sodium Chloride 140 meq/ 1,551.8159 mls @ 63.784 mls/hr 10/22/19 22:00 23:06 Potassium Acetate 10 meq/ IV 1,551.8159 mls Potassium Chloride 40 meq/ 2200 [facility] Administration Calcium Chloride 10 meq/ Magnesium Sulfate 10 meq/ Multivitamins 10 ml/ Chromium/ Copper/Manganese/Seleni/Zn 1 ml/ Fat Emulsion Intravenous 250 ml/ Dextrose/Water/ Sterile Water/ Amino Acids Morphine Sulfate 2 mg 10/21/19 04:13 10/24/19 09:19 Morphine SLOW IVP 2 mg Q4H PRN Administration Moderate to Severe Pain (6-10) Sodium Chloride 10 ml 10/21/19 21:00 10/24/19 09:18 Flush - Normal Saline IVF 10 ml Q12HR [facility] Administration - Exam Eye: PERRL, anicteric sclera Heart: RRR, no murmur, no gallops, no rubs, normal peripheral pulses Respiratory: CTAB, no wheezes, no rales, no ronchi, normal chest expansion Gastrointestinal: non-tender, distended (decreased bowel sounds) Extremities: no cyanosis, no edema Hosp A/P (1) Small bowel obstruction Code(s): K56.609 - UNSP INTESTNL OBST, UNSP TO PARTIAL VERSUS COMPLETE OBST Status: Acute (2) Malnutrition of moderate degree Code(s): E44.0 - MODERATE PROTEIN-CALORIE MALNUTRITION Status: Acute (3) Cirrhosis of liver Code(s): K74.60 - UNSPECIFIED CIRRHOSIS OF LIVER Status: Acute - Plan * SBO- s/p lysis of adhesions and umbilical hernia repair. - He now has an ileus- continue NG tube to suction * Continue IV fluids * Hyponatremia- improved * Encourage ambulation * Continue to monitor electrolytes and replace as needed
[2019-10-24] MEDS: Potassium Chloride 20 MEQ in Lactated Ringer's 1,000 ML IV SCH (12:59)
[2019-10-24] MEDS: HumaLOG 300 UNITS/3 ML VIAL SC PRN (13:01)
--- NOTE | 2019-10-24 15:25 | EKG ---
Test Reason : Blood Pressure : / mmHG Vent. Rate : 092 BPM Atrial Rate : 092 BPM P-R Int : 156 ms QRS Dur : 072 ms QT Int : 372 ms P-R-T Axes : 053 -07 059 degrees QTc Int : 460 ms Sinus rhythm with Fusion complexes Nonspecific T wave abnormality Prolonged QT Abnormal ECG Confirmed by KATIE RODRIGUEZ DO ([id number]), assignment editor LISA CARVAJAL ([id number]) on 10/24/2019 3:24:31 PM Referred By: Confirmed By:KATIE RODRIGUEZ DO
--- NOTE | 2019-10-24 17:39 | PRG ---
DATE OF SERVICE: 10/24/2019 SUBJECTIVE: Pio Rooney's abdominal distention became so severe last night. NG tube had to be placed. Overnight, his NG tube drained 1600 mL. He feels much better. His tachycardia has improved. His respiratory rate has improved. His abdominal distention improved. He reports in the interim he has passed some flatus. OBJECTIVE: LUNGS: Clear to auscultation. CARDIAC: Regular rate and rhythm without murmur or gallop. ABDOMEN: Distended, tympanitic, protuberant, but less so than yesterday. EXTREMITIES: Unremarkable. LABORATORY DATA: White count 15 and hemoglobin 10. Basic metabolic profile normal with BUN 27, creatinine 1.3, and GFR 68. ASSESSMENT AND PLAN: 1. Resolving acute kidney injury. Renal function normalizing. 2. Ileus, postoperative, laparoscopic adhesiolysis and umbilical hernia repair. Continue NG tube for now. He can have ice chips. He can be up in a chair. We will await GI function. Check abdominal x-rays tomorrow. He may have a prolonged ileus due to the chronicity of his bowel obstruction. 3. History of cirrhosis, alcohol cessation more than 4 weeks ago. Job ID: [id number]
[2019-10-24] MEDS: POTASSIUM ACETATE IV SCH (22:11)
[2019-10-24] MEDS: [UNRECOGNIZED DRUG - OTHER] IV SCH (22:11)
[2019-10-24] MEDS: POTASSIUM CHLORIDE IV SCH (22:11)
[2019-10-24] MEDS: SODIUM CHLORIDE IV SCH (22:11)
[2019-10-25] MEDS: Potassium Chloride 20 MEQ in Lactated Ringer's 1,000 ML IV SCH ×2 (02:36→14:33)
[2019-10-25] MEDS: Morphine 2 MG/ML VIAL SLOW IVP PRN (03:53)
[2019-10-25 04:47] LABS: Anion Gap 13 mmol/L (10-20); BUN (Urea Nitrogen) 24 mg/dL (8.4-25.7); Calc. Creatinine Clearance 60 mL/min (70-130); Calcium 10.1 mg/dL (7.8-10.44); Carbon Dioxide 21 mmol/L (23-31); Chloride 115 mmol/L (98-107); Estimated GFR-MDRD 80; Glucose 125 mg/dL (80-115); Potassium 3.5 mmol/L (3.5-5.1); Sodium 145 mmol/L (136-145)
[2019-10-25] MEDS ORDERED: Metoprolol Tartrate 5 MG/5 ML VIAL IVP SCH (06:50)
[2019-10-25] MEDS ORDERED: Lactated Ringer's 500 ML IV SCH (07:00)
[2019-10-25] MEDS ORDERED: Lorazepam 2 MG/ML VIAL SLOW IVP SCH (07:15)
[2019-10-25] MEDS ORDERED: Lorazepam 2 MG/ML VIAL ONE (07:18)
[2019-10-25] MEDS ORDERED: Lorazepam 2 MG/ML VIAL SLOW IVP PRN (07:19)
--- NOTE | 2019-10-25 07:24 | PDOC.HOSPP ---
- Subjective Encounter Date: 10/25/19 Encounter Time: 07:22 Subjective: Called to see patient due to tachycardia and tremors. Patient appears a bit diaphoretic. He denies abdominal pain and denies chest pain. - Objective Vital Signs & Weight: Vital Signs (12 hours) Temp Pulse Pulse Resp Resp BP BP 10/25/19 07:01 147 H 16 133/110 H 10/25/19 06:00 98.4 F 137 H 24 H 142/92 H 10/25/19 04:42 98.0 F 124 H 18 142/89 H 10/25/19 00:12 98.2 F 112 H 22 H 147/94 H 10/24/19 20:54 10/24/19 19:57 98.7 F 111 H 20 138/93 H Pulse Ox 10/25/19 07:01 10/25/19 06:00 98 10/25/19 04:42 100 10/25/19 00:12 100 10/24/19 20:54 100 10/24/19 19:57 100 Weight Admit Weight 136 lb Weight 136 lb Most Recent Monitor Data Heart Rate from ECG 105 NIBP 108/80 NIBP BP-Mean 89 Respiration from ECG 26 SpO2 100 I&O: 10/24/19 10/25/19 10/26/19 06:59 06:59 06:59 Intake Total 2809 1218 Output Total 2650 1150 Balance 159 68 Result Diagrams: 10/24/19 05:07 10/25/19 04:17 Additional Labs: Accuchecks 10/25/19 10/24/19 10/24/19 05:48 23:41 17:50 POC Glucose 135 H 153 H 144 H 10/24/19 11:30 POC Glucose 156 H Hospitalist ROS - Medication Medications: Active Medications Generic Name Dose Route Start Last Admin Trade Name Freq PRN Reason Stop Dose Admin Cyanocobalamin 1,000 mcg 10/21/19 09:00 10/24/19 09:17 Vitamin B-12 PO Not Given DAILY [facility] Heparin Sodium (Porcine) 5,000 units 10/21/19 21:00 10/24/19 20:54 Heparin SC 5,000 units BID [facility] Administration Folic Acid 1 mg/ Thiamine HCl 51.2 mls @ 102.4 mls/hr 10/22/19 09:00 10/24/19 09:17 100 mg/ Sodium Chloride IV Not Given 0900 [facility] As Directed Potassium Chloride 20 meq/ 1,010 mls @ 75 mls/hr 10/24/19 11:30 10/25/19 02:36 Lactated Ringer's IV 1,010 mls .[id number] [facility] Administration Sodium Chloride 140 meq/ 1,551.8159 mls @ 64.659 mls/hr 10/24/19 22:00 10/24/19 22:11 Potassium Acetate 10 meq/ IV 1,551.8159 mls Potassium Chloride 40 meq/ 2200 [facility] Administration Calcium Chloride 10 meq/ Magnesium Sulfate 10 meq/ Multivitamins 10 ml/ Chromium/ Copper/Manganese/Seleni/Zn 1 ml/ Fat Emulsion Intravenous 250 ml/ Dextrose/Water/ Sterile Water/ Amino Acids Insulin Human Lispro 0 units 10/21/19 15:27 10/24/19 13:01 Humalog SC 2 unit .MILD SLIDING SCALE PRN Administration Mild Correctional Scale Morphine Sulfate 2 mg 10/21/19 04:13 10/25/19 03:53 Morphine SLOW IVP 2 mg Q4H PRN Administration Moderate to Severe Pain (6-10) Sodium Chloride 10 ml 10/21/19 21:00 10/24/19 20:54 Flush - Normal Saline IVF 10 ml Q12HR [facility] Administration - Exam Eye: PERRL, anicteric sclera Heart: RRR (tachycardia) Respiratory: CTAB, no wheezes, no rales, no ronchi, normal chest expansion Gastrointestinal: distended, diminished bowl sounds Skin: normal turgor, no rashes Hosp A/P (1) Small bowel obstruction Code(s): K56.609 - UNSP INTESTNL OBST, UNSP TO PARTIAL VERSUS COMPLETE OBST Status: Acute (2) Malnutrition of moderate degree Code(s): E44.0 - MODERATE PROTEIN-CALORIE MALNUTRITION Status: Acute (3) Cirrhosis of liver Code(s): K74.60 - UNSPECIFIED CIRRHOSIS OF LIVER Status: Acute - Plan * Tachycardia and tremors, and elevated blood pressure- this in the setting of a history of alcohol abuse is suspicious for Alcohol Withdrawal. Will place him on Ativan prn and an ASE protocol Continue IV fluids * He has been transferred to the [facility] * Blood and urine cultures have been obtained, and he has been started on Zosyn empirically * He may need CT scan of the abdomen, but will defer this to Surgery * SBO- s/p lysis of adhesions and umbilical hernia repair. - He now has an ileus- continue NG tube to suction * Continue IV fluids * Hyponatremia- improved * Encourage ambulation * Continue to monitor electrolytes and replace as needed
[2019-10-25] MEDS ORDERED: cloNIDine 0.1 MG TAB PO PRN (07:26)
[2019-10-25] MEDS: Lorazepam 2 MG/ML VIAL SLOW IVP SCH ×2 (07:41→07:45)
[2019-10-25 09:04] LABS: #Lymphocytes 0.3 thou/uL (1.20-3.40); #Monocytes 0.7 thou/uL (0.11-0.59); #Neutrophils 10.5 thou/uL (1.40-6.50); %Basophils 0.1 % (0.0-1.0); %Eosinophils 0.2 % (0.0-10.0); %Monocytes 6.3 % (0.0-10.0); %Neutrophils 90.5 % (42.0-75.0); Mean Corpuscular HGB CONC 31.1 g/dL (32.0-36.0); Mean Corpuscular Hemoglobin 30.9 pg (27.0-31.0); Mean Corpuscular Volume 99.4 fL (78.0-98.0); Mean Platelet Volume 9.5 fL (7.4-10.4); Platelet Count 154 thou/uL (130-400); RBC Distribution Width 12.9 % (11.5-14.5); Red Blood Cell (RBC) Count 3.57 mill/uL (4.70-6.10); White Blood Cell (WBC) Count 11.6 thou/uL (4.8-10.8)
[2019-10-25 09:18] LABS: ALT (SGPT) 12 U/L (8-55); AST (SGOT) 34 U/L (5-34); Alkaline Phosphatase 60 U/L (40-110); Anion Gap 14 mmol/L (10-20); BUN (Urea Nitrogen) 24 mg/dL (8.4-25.7); Bilirubin, Total 1.5 mg/dL (0.2-1.2); Calc. Creatinine Clearance 62 mL/min (70-130); Calcium 10.1 mg/dL (7.8-10.44); Carbon Dioxide 19 mmol/L (23-31); Chloride 116 mmol/L (98-107); Estimated GFR-MDRD 83; Globulin 4.4 g/dL (2.4-3.5); Glucose 130 mg/dL (80-115); Potassium 3.5 mmol/L (3.5-5.1); Protein, Total 7.4 g/dL (5.8-8.1); Sodium 145 mmol/L (136-145)
[2019-10-25] MEDS: Piperacillin/Tazobactam 4.5 GM in Sodium Chloride 0.9% 100 ML IVPB SCH ×3 (09:58→20:57)
[2019-10-25] MEDS: Cyanocobalamin (Vitamin B-12) 1,000 MCG TAB PO SCH (09:59)
[2019-10-25] MEDS: Heparin 5,000 UNITS/ML VIAL SC SCH ×2 (09:59→20:58)
[2019-10-25 10:15] LABS: ALT (SGPT) 9 U/L (8-55); AST (SGOT) 29 U/L (5-34); Alkaline Phosphatase 62 U/L (40-110); Anion Gap 14 mmol/L (10-20); BUN (Urea Nitrogen) 23 mg/dL (8.4-25.7); Bilirubin, Total 1.4 mg/dL (0.2-1.2); Calc. Creatinine Clearance 57 mL/min (70-130); Calcium 10.2 mg/dL (7.8-10.44); Carbon Dioxide 20 mmol/L (23-31); Chloride 116 mmol/L (98-107); Estimated GFR-MDRD 76; Globulin 4.5 g/dL (2.4-3.5); Glucose 146 mg/dL (80-115); Potassium 3.6 mmol/L (3.5-5.1); Protein, Total 7.5 g/dL (5.8-8.1); Sodium 146 mmol/L (136-145)
--- NOTE | 2019-10-25 10:58 | RAD ---
ABDOMINAL SURVEY WITH UPRIGHT CHEST AND TWO VIEW ABDOMEN: INDICATIONS: Follow up small bowel obstruction. COMPARISON: 10/21/19 TECHNIQUE: Three views obtained with upright chest, supine abdomen and left lateral decubitus of the abdomen. FINDINGS: The lung de la garza remain clear. The central line through the left jugular has a tip overlying the right atrium. There is an NG tube in place, which passes through the EG junction. The tip overlies the epi gastric fundus in the left upper quadrant. Views of the abdomen again show gas-filled dilated loops of small bowel throughout the abdomen. Diffe rential air-fluid levels are seen on the decubitus view. No evidence of free intraperitoneal air. IMPRESSION: Persistent gas-filled dilated loops of small bowel with differential air-fluid levels consistent with small bowel obstruction. POS: AGW
[2019-10-25] MEDS: POTASSIUM CHLORIDE IV SCH (23:29)
[2019-10-25] MEDS: POTASSIUM ACETATE IV SCH (23:29)
[2019-10-25] MEDS: [UNRECOGNIZED DRUG - OTHER] IV SCH (23:29)
[2019-10-25] MEDS: SODIUM CHLORIDE IV SCH (23:29)
[2019-10-26] MEDS: Potassium Chloride 20 MEQ in Lactated Ringer's 1,000 ML IV SCH ×2 (02:20→19:14)
[2019-10-26] MEDS: Piperacillin/Tazobactam 4.5 GM in Sodium Chloride 0.9% 100 ML IVPB SCH ×4 (02:21→20:49)
[2019-10-26 04:10] LABS: #Lymphocytes 1.2 thou/uL (1.20-3.40); #Monocytes 1.5 thou/uL (0.11-0.59); #Neutrophils 10.3 thou/uL (1.40-6.50); %Basophils 0.1 % (0.0-1.0); %Monocytes 11.3 % (0.0-10.0); %Neutrophils 79.6 % (42.0-75.0); Hemoglobin 9.3 g/dL (14.0-18.0); Mean Corpuscular HGB CONC 31.1 g/dL (32.0-36.0); Mean Corpuscular Hemoglobin 30.8 pg (27.0-31.0); Mean Corpuscular Volume 99.1 fL (78.0-98.0); Platelet Count 192 thou/uL (130-400); RBC Distribution Width 13.2 % (11.5-14.5); Red Blood Cell (RBC) Count 3.02 mill/uL (4.70-6.10); White Blood Cell (WBC) Count 12.9 thou/uL (4.8-10.8)
[2019-10-26 04:23] LABS: ALT (SGPT) 13 U/L (8-55); AST (SGOT) 32 U/L (5-34); Albumin 2.9 g/dL (3.4-4.8); Alkaline Phosphatase 63 U/L (40-110); Anion Gap 12 mmol/L (10-20); BUN (Urea Nitrogen) 26 mg/dL (8.4-25.7); Calc. Creatinine Clearance 47 mL/min (70-130); Calcium 10.6 mg/dL (7.8-10.44); Carbon Dioxide 20 mmol/L (23-31); Chloride 120 mmol/L (98-107); Estimated GFR-MDRD 60; Globulin 4.6 g/dL (2.4-3.5); Glucose 150 mg/dL (80-115); Magnesium 1.4 mg/dL (1.6-2.6); Potassium 3.2 mmol/L (3.5-5.1); Protein, Total 7.5 g/dL (5.8-8.1); Sodium 149 mmol/L (136-145)
[2019-10-26 05:50] LABS: Phosphorus Less than 1.0 mg/dL (2.3-4.7)
[2019-10-26] MEDS ORDERED: Potassium Phosphate 30 MMOL in Sodium Chloride 0.9% 500 ML IVPB SCH (07:45)
[2019-10-26] MEDS ORDERED: PROPOFOL 200 MG/20 ML VIAL ONE (08:46)
[2019-10-26] MEDS ORDERED: PHENYLEPHRINE-NS 100 MCG/ML 10 ML SYRINGE ONE (08:46)
[2019-10-26] MEDS ORDERED: Lidocaine 1% PF 5 ML VIAL ONE (08:46)
[2019-10-26] MEDS ORDERED: Vecuronium 10 MG VIAL ONE (08:46)
[2019-10-26] MEDS ORDERED: Succinylcholine Chloride 20 MG/ML 10 ml SYRINGE FS ONE (08:46)
[2019-10-26] MEDS: Heparin 5,000 UNITS/ML VIAL SC SCH ×2 (09:36→21:58)
[2019-10-26] MEDS: Cyanocobalamin (Vitamin B-12) 1,000 MCG TAB PO SCH (09:47)
--- NOTE | 2019-10-26 10:01 | PDOC.HOSPP ---
- Subjective Encounter Date: 10/26/19 Encounter Time: 09:59 Subjective: Mr. Rooney was seen today in follow-up of encephalopathy and small bowel obstruction. He appears weaker today than yesterday. He admits to abdominal discomfort. - Objective Vital Signs & Weight: Vital Signs (12 hours) Temp 10/26/19 07:29 99.2 F 10/26/19 03:53 99.0 F 10/26/19 00:18 99.4 F Weight Admit Weight 136 lb Weight 136 lb Most Recent Monitor Data Heart Rate from ECG 122 NIBP 142/99 NIBP BP-Mean 113 Respiration from ECG 42 SpO2 98 I&O: 10/25/19 10/26/19 10/27/19 06:59 06:59 06:59 Intake Total 1218 1668 1671 Output Total 1150 260 900 Balance 68 1408 771 Result Diagrams: 10/26/19 03:28 10/26/19 03:28 Additional Labs: Accuchecks 10/26/19 10/25/19 10/25/19 06:30 18:13 12:19 POC Glucose 162 H 138 H 165 H Hospitalist ROS - Medication Medications: Active Medications Generic Name Dose Route Start Last Admin Trade Name Freq PRN Reason Stop Dose Admin Cyanocobalamin 1,000 mcg 10/21/19 09:00 10/25/19 09:59 Vitamin B-12 PO Not Given DAILY [facility] Heparin Sodium (Porcine) 5,000 units 10/21/19 21:00 10/25/19 20:58 Heparin SC 5,000 units BID [facility] Administration Folic Acid 1 mg/ Thiamine HCl 51.2 mls @ 102.4 mls/hr 10/22/19 09:00 14:26 100 mg/ Sodium Chloride IV Not Given 0900 [facility] As Directed Potassium Chloride 20 meq/ 1,010 mls @ 75 mls/hr 10/24/19 11:30 10/26/19 02: 20 Lactated Ringer's IV 1,010 mls .[id number] [facility] Administration Sodium Chloride 140 meq/ 1,551.8159 mls @ 64.659 mls/hr 10/24/19 22:00 23:29 Potassium Acetate 10 meq/ IV 1,551.8159 mls Potassium Chloride 40 meq/ 2200 [facility] Administration Calcium Chloride 10 meq/ Magnesium Sulfate 10 meq/ Multivitamins 10 ml/ Chromium/ Copper/Manganese/Seleni/Zn 1 ml/ Fat Emulsion Intravenous 250 ml/ Dextrose/Water/ Sterile Water/ Amino Acids Piperacillin Sod/Tazobactam 100 mls @ 200 mls/hr 10/25/19 08:00 10/26/19 02: 21 Sod 4.5 gm/ Sodium Chloride IVPB 100 mls Q6H [facility] Administration Insulin Human Lispro 0 units 10/21/19 15:27 10/24/19 13:01 Humalog SC 2 unit .MILD SLIDING SCALE PRN Administration Mild Correctional Scale Lorazepam 2 mg 10/25/19 07:19 10/25/19 11:45 Ativan SLOW IVP 2 mg Q4H PRN Administration Anxiety/Agitation Morphine Sulfate 2 mg 10/21/19 04:13 10/25/19 03:53 Morphine SLOW IVP 2 mg Q4H PRN Administration Moderate to Severe Pain (6-10) Sodium Chloride 10 ml 10/21/19 21:00 10/25/19 20:58 Flush - Normal Saline IVF 10 ml Q12HR [facility] Administration - Exam Eye: PERRL, anicteric sclera Heart: RRR, no murmur, no gallops, no rubs, normal peripheral pulses Respiratory: CTAB, no wheezes, no rales, no ronchi, normal chest expansion Gastrointestinal: soft, tender to palpation (+ diffuse abdominal tenderness), distended Extremities: no cyanosis, 1+ LE edema Hosp A/P (1) Small bowel obstruction Code(s): K56.609 - UNSP INTESTNL OBST, UNSP TO PARTIAL VERSUS COMPLETE OBST Status: Acute (2) Malnutrition of moderate degree Code(s): E44.0 - MODERATE PROTEIN-CALORIE MALNUTRITION Status: Acute (3) Cirrhosis of liver Code(s): K74.60 - UNSPECIFIED CIRRHOSIS OF LIVER Status: Acute - Plan * Metabolic encephalopathy- I suspect this is multi-factoral- due to severe illness, alcohol abuse, and withdrawal, and SBO. * Continue empiric antibiotics * CT scan of the abdomen is pending * Continue IV fluids * Moderate to severe malnutrition- this will complicate his recovery, and it has been worsened due to his current and recent bowel obstructions * Continue to monitor electrolytes and replace as needed * His overall prognosis is guarded. I explained this to his who tells me she is aware.
[2019-10-26] MEDS ORDERED: Magnesium Sulfate 3 GM in Sodium Chloride 0.9% 100 ML IVPB SCH (11:15)
[2019-10-26 11:43] LABS: INR-International Normal Ratio 1.7; Prothrombin Time 19.8 sec (12.0-14.7)
[2019-10-26 11:44] LABS: PTT 39.6 sec (22.9-36.1)
--- NOTE | 2019-10-26 11:51 | CT ---
CT ABDOMEN AND PELVIS WITH IV CONTRAST 10/26/2019 CLINICAL INFORMATION: Shortness of breath and severe abdominal pain when lying supine. COMPARISON: Noncontrast CT abdomen and pelvis on 10/21/2019 Technique: Multiple contiguous axial CT images are obtained through the abdomen and pelvis with IV contrast. Cor onal reformatted images are provided. FINDINGS: Lower Chest: Linear atelectasis is present at the right lung base. No pleural fluid is seen. Vessels: Vascular calcifications are seen in the abdominal aorta and involving the iliac arteries. Th e abdominal aorta is normal in caliber. Abdomen: Portal vein:Patent Gallbladder: Surgically absent Liver: Suggestion of minimal peripheral nodular contour. Findings could be related to cirrhosis. No f ocal hepatic lesion is seen. Spleen: within normal limits. Pancreas: within normal limits. Adrenals: within normal limits. Kidneys: Nonobstructing calculus is again seen in the right renal pelvis. Kidneys otherwise have a no rmal CT appearance. Bowel: Again noted are dilated loops of small bowel measuring up to 4.9 cm with decompressed loops of small bowel in the right lower quadrant. While the exact transition point is difficult to delineate, the transition is in the right lower quadrant. The colon was completely decompressed on pr ior examination. However, the ascending colon is now mildly distended with gas and fluid, and there is evidence of pneumatosis involving the ascending colon. Nasogastric tube is noted in place with the tip in the body of the stomach. Contrast persists in the stomach as well as in the duodenum with contrast seen to the level of ligament of Treitz. Contrast is not seen distal to this region. Patient was scanned 2 hours after administration of oral contrast.. Appendix: Not visualized. Peritoneum: There is a moderately large amount of free fluid seen within the lower abdomen and in the pelvis. Foci of free gas are seen in the anterior most abdomen. Mesentery and Retroperitoneum: No enlarged mesenteric or retroperitoneal lymph nodes. Abdominal Wall: Subcutaneous emphysema is seen in the right lower quadrant upper pelvis. Pelvis: Reproductive Organs: No pelvic masses. Bladder: Clements catheter is present in a decompressed urinary bladder. Bones: Degenerative changes are again seen throughout spine much greater at the L4-5 level. Slight re trolisthesis of L4 on L5 is present. IMPRESSION: 1. Findings again suggestive of a high-grade partial small bowel obstruction with transition in right lower quadrant. 2. Interval development of mild distention of the ascending colon with evidence of pneumatosis involv ing the ascending colon. 3. Moderately large amount of intraperitoneal free fluid. 4. Foci of free intraperitoneal gas in the anterior abdomen. Patient is noted to have had a recent la parotomy which may account for this finding. 5. Nonobstructing calculus right renal pelvis. 6. Above findings discussed Dr. Felton on 10/26/2019 at 1146 hours.
[2019-10-26] MEDS ORDERED: Lactated Ringer's 1,000 ML IV SCH (12:30)
--- NOTE | 2019-10-26 13:22 | CT ---
CTA CHEST WITH CONTRAST: Date: 10/26/2019 Axial tomograms obtained following angio protocol with multiplanar reconstruction and 3D postprocessi ng. INDICATION: Shortness of breath. Assess for pulmonary embolus. FINDINGS: Pulmonary arteries show adequate enhancement. There is no evidence of pulmonary embolus identified. T he distal pulmonary arteries are poorly evaluated due to loss of contrast and artifact. Thoracic aorta is unremarkable with no evidence of dissection. Mediastinum unremarkable. The lungs are aerated with no evidence of focal infiltrate or consolidation. Hazy ground-glass opacit y and interstitial prominence may represent mild edema. There is a 5.0 mm nodule in the peripheral right mid lung near the pleural surface which should be fo llowed up. Images through the upper abdomen show evidence of ascites and there are gas-filled dilated loops of s mall bowel which are partially imaged. See separate CT abdomen and pelvis exam. IMPRESSION: 1. No evidence of proximal pulmonary embolus. 2. Mild interstitial prominence and hazy ground-glass opacities in both lungs suggest mild edema. 3. 5.0 mm nodule in the peripheral right mid lung which appears to be in the periphery of the right middle lobe near the fissure is noted. Short-term follow-up with noncontrast CT chest in 6 months is recommended. POS: INDIO
[2019-10-26] MEDS ORDERED: Iopamidol-370 76% 500 ML 1 ML ONE (15:02)
--- NOTE | 2019-10-26 15:13 | PRG ---
DATE OF SERVICE: 10/25/2019 SUBJECTIVE: Pio Rooney had a bout of SVT, was becoming tachypneic, confused, transferred to the [facility] last night. He remains afebrile. His heart rate is 128, down from 150 last night. Laboratories revealed a hemoglobin of 11, white count 11.6. Differential is unremarkable. Sodium is 146, chloride 116, carbon dioxide 20, creatinine 1.18, GFR 76, glucose 140 to 138. Mental status has deteriorated slightly. He was appropriate before, but slightly confused. He reports some abdominal pain. His urine output has been 600 since a Clements catheter was placed, he was voiding in a brief prior to that. NG tube output 550 mL. Abdominal x-rays obtained this morning revealed dilated small bowel loops, some gas in the colon. Lung de la garza remain clear. NG tube is in the upper fundus and it measured about approximately 55 cm from the nares. I have asked his nurse to advance it. OBJECTIVE: LUNGS: Rhonchi, no wheezing. CARDIAC: Sinus tachycardia. ABDOMEN: Soft, distended, slightly tender. Bowel sounds present. EXTREMITIES: Without edema. ASSESSMENT AND PLAN: 1. Acute kidney injury, improved with hydration over the past few days. 2. Postoperative day #4 from laparoscopy with division of an offending adhesive band causing a complete bowel obstruction. This was secondary to a ventral hernia repair with mesh in his upper midline abdomen. Umbilical hernia was repaired without mesh. The patient has history of alcohol cessation for 5 weeks. He has a history of cirrhosis. He has been on TPN. His coagulation studies have been elevated, and besides SCDs, he has not been placed on heparin. Heparin has been ordered on the night, however, subcu t.i.d. 3. Acute clinical status change with tachycardia and tachypnea and mental status changes. I have obtained cultures yesterday, urine and blood. These reports are pending. He has a central line that has been in place since his surgery on the . Await blood cultures. Continue Zosyn IV. His acute kidney injury has improved. We will obtain a CT scan, CTA chest, and CT scan of his abdomen and pelvis in the morning. We will repeat his labs tomorrow. Continue observation in [facility]. Job ID: [id number]
[2019-10-26] MEDS ORDERED: Norepinephrine 4 MG/4 ML VIAL ONE (15:54)
[2019-10-26] MEDS ORDERED: Albumin 5% 500 ML ONE (16:02)
[2019-10-26] MEDS ORDERED: Sodium Chloride 0.9% 30 ML ONE (16:27)
[2019-10-26] MEDS ORDERED: Ventilator Sedation Protocol 1 EACH FS SCH (17:01)
[2019-10-26] MEDS ORDERED: fentaNYL Citrate/PF 2,000 MCG in Sodium Chloride 0.9% 60 ML IV SCH (17:09)
[2019-10-26] MEDS ORDERED: Fentanyl BOLUS 250 ML IVPB PRN (17:09)
[2019-10-26] MEDS ORDERED: Propofol BOLUS 1,000 MG/100 ML VIAL IV PRN (17:09)
[2019-10-26] MEDS ORDERED: Lorazepam 2 MG/ML VIAL SLOW IVP PRN (17:09)
[2019-10-26] MEDS ORDERED: DISCONTINUE PREVIOUS NARCOTIC PAIN MEDICATIONS AND BENZODIAZEPINES FS SCH (17:09)
[2019-10-26] MEDS ORDERED: Propofol 1,000 MG/100 ML VIAL IV PRN (17:09)
[2019-10-26] MEDS ORDERED: Morphine 2 MG/ML VIAL SLOW IVP PRN (17:09)
--- NOTE | 2019-10-26 17:18 | RAD ---
Portable frontal chest radiograph: 10/26/2019 COMPARISON: 10/23/2019 HISTORY: Shortness of breath, pain FINDINGS: Supine imaging is provided, limiting assessment for pneumothorax and pleural fluid. There i s an endotracheal tube and nasogastric tube in proper position. Right and left vascular catheters are present, distal tips overlying the region of the right atrium. Clips in the right upper quadrant suggest prior cholecystectomy. No focal consolidation or alveolar edema. Supine imaging limits assessment for free intraperitoneal air and bowel obstruction. Minimal linear density noted in the me dial right lung apex. IMPRESSION: Lines and tubes as above. No focal consolidation or alveolar edema.
[2019-10-26 17:40] LABS: Actual Bicarbonate (HCO3a) 18.1 mEq/L (22-28); Base Excess (BEa) -6.3 mEq/L (-2.0 to +3.0); CO2 Tension 32.3 mmHg (35.0-45.0); Calcium, Ionized (arterial) 1.32 mmol/L (1.12-1.30); Carboxyhemoglobin (COHb) 0.3 gm% (0.0-3.0); O2 Tension (PaO2), arterial 221.9 mmHg (> 80.0); Potassium - ABG Lab 3.17 mmol/L (3.70-5.30); pH, Arterial 7.37 (7.35-7.45)
[2019-10-26 17:42] LABS: ALV-art Gradient 22.925 (0-20); Puncture Site ALINE
--- NOTE | 2019-10-26 18:07 | PRG ---
DATE OF SERVICE: 10/26/2019 SUBJECTIVE: Pio Rooney today is not doing well. He remains tachypneic and tachycardic. His gastric drainage is 260 mL for 24 hours. Urine output is acceptable per Clements, 750 mL for 24 hours. The patient is slightly confused. He is tachycardic to 120 to 130. This morning, his sodium is 149, potassium 3.2, carbon dioxide 20, chloride 120, BUN 26, creatinine 1.44, GFR 60, calcium 10.6, magnesium 1.4, bilirubin up to 2. OBJECTIVE: LUNGS: Clear to auscultation. ABDOMEN: Distended and he is mildly tender throughout his abdomen without a rigid abdomen. EXTREMITIES: Unremarkable. DIAGNOSTIC STUDIES: Chest x-ray clear. CTA chest, no pulmonary emboli. No infiltrates. CT scan of the abdomen and pelvis reveals free fluid in the pelvis. Pneumatosis intestinalis: Suggest a high-grade bowel obstruction. ASSESSMENT AND PLAN: 1. Peritonitis. I am concerned about a small bowel leak. Concerned about ischemia of the colon. We would recommend laparotomy. We have spoken to his family and obtained verbal consent for laparotomy and indicated procedures. Risks of infection, bleeding, reoperation discussed. He will need to go to ICU postoperatively. I am not sure being on the ventilator. 2. Cirrhosis. His PT is 19.8. INR 1.7. The patient's platelet count is 192,000. As stated above, his PT is 19.8, INR 1.7. His potassium is slightly low. BUN and creatinine are slightly elevated. He had complete recovery from his previous acute kidney injury and now he has suffered a slight worsening of his kidney function. He continues on total parenteral nutrition. Would give him fluid bolus. Replace his magnesium, which is very low. Replace his phosphorus. Replace his potassium. Plan to go to operating room for a laparotomy today. He will certainly need to be in the ICU on the ventilator postoperatively. Job ID: [id number]
[2019-10-26] MEDS: Vancomycin HCl 1.25 GM in Sodium Chloride 0.9% 250 ML 250 ML IVPB SCH (19:20)
[2019-10-26] MEDS: MEROPENEM 1 GM/50 ML 1 GM in Premix Bag 1 BAG IVPB SCH (20:49)
[2019-10-26] MEDS: Fluconazole In NaCl,Iso-Osm 400 MG in Premix Bag 1 BAG IVPB SCH (21:58)
[2019-10-26] MEDS: POTASSIUM ACETATE IV SCH ×2 (22:59→23:03)
[2019-10-26] MEDS: SODIUM PHOSPHATE IV SCH (22:59)
[2019-10-26] MEDS: SODIUM ACETATE IV SCH (22:59)
[2019-10-26] MEDS: [UNRECOGNIZED DRUG - OTHER] IV SCH (22:59)
[2019-10-26] MEDS: [UNRECOGNIZED DRUG - OTHER] IV SCH (23:03)
[2019-10-26] MEDS: POTASSIUM CHLORIDE IV SCH (23:03)
[2019-10-26] MEDS: SODIUM CHLORIDE IV SCH (23:03)
--- NOTE | 2019-10-27 00:55 | OP ---
DATE OF PROCEDURE: 10/26/2019 PREOPERATIVE DIAGNOSES: Cirrhosis, status post laparoscopic adhesiolysis; umbilical hernia repair without mesh five days ago, now with sepsis, CAT scan suggesting pneumatosis intestinalis transverse colon and ascites fluid in abdominal cavity with tachypnea and tachycardia. POSTOPERATIVE DIAGNOSES: Cirrhosis, status post laparoscopic adhesiolysis; umbilical hernia repair without mesh five days ago, now with sepsis, CAT scan suggesting pneumatosis intestinalis transverse colon and ascites fluid in abdominal cavity with tachypnea and tachycardia, with intact bowel and no enteric leak. Ascites fluid evacuated, sent for culture. Appendix slightly indurated, but not acutely inflamed. Appendectomy performed. PROCEDURES PERFORMED: Exploratory laparotomy, appendectomy, abdominal washout, Seprafilm placement between the viscera and abdominal wall, MIL dressing to abdominal wall, right subclavian vein central line to replace the left IJ, which was removed intraoperatively. ANESTHESIA: General. DESCRIPTION OF PROCEDURE: The patient was taken to the operating room, where under general anesthesia right subclavian vein central line placed after ChloraPrep in infraclavicular approach and Seldinger technique, placed a triple-lumen catheter, secured with 3-0 silk suture, sterile dressing applied. Each port aspirated with blood, flushed with saline solution. Abdomen prepared with ChloraPrep and draped in routine fashion. Incision was made centered about the umbilicus midline, carried down through skin, subcutaneous tissue, midline fascia. There was slightly darkened ascites fluid, but not enteric and not foul smelling. There was some fibrino purulent exudate very scant. This was evacuated. There was some mucinous material, ascites fluid evacuated in the gutters. Small bowel was markedly dilated, it was decompressed via NG tube in the stomach as it was milked retrograde, evaluated twice from the ileocecal valve to the ligament of Treitz. Several liters of fluid evacuated from the stomach. NG tube was changed for a new NG tube in the stomach palpated in good position. The appendix was noted to be slightly indurated at the tip, but it was not inflamed. Mesoappendix was taken down with the cautery and divided between clamps ligated with 2-0 silk ties and stump of the appendix cecal stump divided with Endo-NAN blue load stapler. Stapled cecal stump is hemostatic and secured. Staple line inverted with interrupted Lembert suture of 3-0 silk, appendix submitted to Pathology. Ascites fluid had been submitted for culture. Culture swab submitted. Abdominal cavity thoroughly irrigated with saline solution. Irrigant evacuated. Small bowel thoroughly inspected and noted to be intact without leakage. Colon inspected from the cecum, ascending, transverse, descending sigmoid colon and appeared to be normal and viable. Stomach was inspected and noted to be normal. Abdominal cavity was irrigated, irrigant evacuated. Seprafilm placed between the viscera and abdominal wall. Abdominal wall was closed by approximating fascia with continuous suture of #1 PDS. Skin and subcutaneous tissues irrigated. Good hemostasis assured with cautery. Subcutaneous tissues approximately 2-0 Monocryl, skin with marcos and a MIL dressing applied. The patient tolerated the procedure well. Job ID: [id number]
--- NOTE | 2019-10-27 01:42 | CON ---
DATE OF CONSULTATION: HISTORY OF PRESENT ILLNESS: A 59-year-old gentleman, who has been in the hospital here now since 10/20. He underwent initially surgery for small bowel obstruction with chronic mild hydration. He over the last 24 hours, his condition worsen with worsening abdominal pain. Repeat CT showed free air and multiple other abnormalities as noted. He was taken to surgery open laparotomy performed, he is back in the ICU on the vent. Please note, his CT findings revealed moderate large amount of intraperitoneal free air, free intraperitoneal gas in the anterior abdomen, nonobstructive renal calculi, and a nonspecific nodule in the right lung of unknown significance. The patient lives in [place], who has been having issues with abdominal problems for several weeks with nausea, vomiting, distention, and small bowel obstruction was felt, he was hydrated over here. PAST MEDICAL HISTORY: Pertinent for arthritis, hypertension, and reflux. PREVIOUS SURGERIES: Laparoscopic cholecystectomy and umbilical hernia repair. SOCIAL HISTORY: Previous history of cirrhosis apparently from drinking quit drinking five years ago. Minimal tobacco abuse. MEDICATIONS: His home medicine included; 1. Meloxicam. 2. Tramadol. 3. Spironolactone. 4. Omeprazole. 5. Lasix. 6. Atenolol. ALLERGIES: NONE. REVIEW OF SYSTEMS: Unobtainable. PHYSICAL EXAMINATION: GENERAL: He is cachectic gentleman. VITAL SIGNS: Temperature 99, pulse 119, and blood pressure is 147/70. CHEST: Decreased breath sounds. No wheezing. No crackles. CARDIAC: Normal S1 and S2. ABDOMEN: Distended and soft. LABORATORY DATA: His white count 12,000, H and H are 9 and 29, platelet count 192, and 79 segs. Creatinine is 1.4, which improved. BUN is 26. INR is 1.7. Albumin is 2.9. IMPRESSION: 1. Status post laparotomy for peritonitis. 2. Severe deconditioning. 3. Cirrhosis of hypertension and azotemia. He is on Zosyn. Await cultures. He is on TPN for nutritional. Vent support postop. PLAN: Wean when stable. I have ordered a cortisol level, mag and phosphorus level. PT. DVT prophylaxis. This is a 45-minute critical care time. Job ID: [id number]
--- NOTE | 2019-10-27 01:50 | CON ---
DATE OF CONSULTATION: REASON FOR CONSULT: Acute abdomen, small bowel obstruction, sepsis. HISTORY OF PRESENT ILLNESS: 59-year-old patient with history of alcoholism and cirrhosis, who was brought in on October 19 with abdominal pain. The patient had recently been at [facility]. Apparently, he had an NG tube probably for management of the small bowel obstruction. It is not clear how he left the hospital, if it was against medical advice or not, but he left the hospital and persisted with the SBO symptoms, and ended up here in the hospital. He had not had any stool output after discharge. There is a history of ventral hernia repair 4 years before, cholecystectomy at that time. Most of the pain localized to the epigastric area. He did have some recent antibiotic use and no headaches, no respiratory symptoms, no genitourinary symptoms. PAST MEDICAL HISTORY: Cirrhosis of liver, alcoholism, abdominal hernia repair, cholecystectomy. SOCIAL HISTORY: Alcoholism, chronic smoking. ALLERGIES: NONE. HOME MEDICATIONS: 1. Atenolol. 2. Furosemide. 3. Meloxicam. 4. Protonix. 5. Spironolactone. 6. Tramadol. 7. Magnesium. 8. He is on electrolyte infusion. 9. Fentanyl p.r.n. 10. Multivitamin. 11. Zosyn. 12. TPN. PHYSICAL EXAMINATION: VITAL SIGNS: His temperature max was 98.7, blood pressure 150/117, FiO2 of 40. Delivery method is mechanical ventilation following the most recent procedure. SKIN: Shows the midline incision covered with dressing. He has a right-sided subclavian central line. HEENT: There is evidence of temporal wasting. Pupils are about 2 mm and reactive. Numerous missing teeth. LUNGS: Symmetric air entry. HEART: S1 and S2 regular rate. ABDOMEN: Somewhat distended. Bowel sounds are diminished. : He has a Clements catheter in place. Quite a bit of wasting syndrome in the appendicular structure, musculature. EXTREMITIES: Pulses are diminished in dorsalis pedis, but palpable. Cap refill is delayed. There is some faint movements in the feet, but they are not in hands. LABORATORY DATA: White cell count started at 9 on admission with 78% neutrophils, went up to 15.7 on October 23 with 86% neutrophils, and now on October 25 is down to 12.9, hemoglobin 9.3, platelets 192. Creatinine started at 2.95, went down to 1.09, is little bit up to 1.44 at this time. Bilirubin was 2.0. Transaminases normal. Alkaline phosphatase 63, albumin 2.9, globulin 4.6, ammonia 204. Urinalysis actually was not done. COVID was not detected. IMAGING STUDIES: Today's chest with ET tube in place and no focal findings in the lungs. Patient had a CT chest angiogram with no evidence of pulmonary embolism, mild interstitial prominence and hazy ground-glass opacities in lungs, small nodule in the left mid lung. ASSESSMENT: 1. History of alcoholism with liver cirrhosis, but no documentation of such. There are imaging studies that are consistent with liver cirrhosis here in the hospital. 2. Prior herniorrhaphy with mesh repair. 3. Adhesions with small bowel obstruction, which led to admission to a hospital in [place]. He left the hospital in unclear circumstances with persistence of the small bowel obstruction, which led to admission to this hospital on October 19, and then the procedure described. There was a clear-cut area of band obstruction of one of the small bowel loops, which was released. He developed tachypnea and possible sepsis, had reintervention to re-evaluate the area. DISCUSSION: Differential diagnosis includes translocation of bacteria with bacteremia and eventual sepsis syndrome with endotoxin production. He has been in the hospital now for about 6 days, and he is at risk for fungemia and this is the second hospital so resistant pathogens are considered. We will switch him to meropenem, vancomycin, and fluconazole, until we have the results of the latest blood cultures and he stabilizes. There was some evidence of pneumatosis on CT, but not on direct surgical evaluation and there is no evidence of colon ischemia or necrosis or leakage/peritonitis or biliary tract issues/pancreatitis. Job ID: [id number] [facility]
[2019-10-27] MEDS: Piperacillin/Tazobactam 4.5 GM in Sodium Chloride 0.9% 100 ML IVPB SCH ×2 (02:05→09:24)
[2019-10-27] MEDS: MEROPENEM 1 GM/50 ML 1 GM in Premix Bag 1 BAG IVPB SCH ×3 (04:44→20:44)
[2019-10-27 05:05] LABS: Band 20 % (5-11); Hemoglobin 11.7 g/dL (14.0-18.0); Lymphocytes 8 % (21-51); MDiff Complete? YES; Mean Corpuscular HGB CONC 32.4 g/dL (32.0-36.0); Mean Corpuscular Hemoglobin 31.6 pg (27.0-31.0); Mean Corpuscular Volume 97.5 fL (78.0-98.0); Mean Platelet Volume 9.5 fL (7.4-10.4); Monocytes 7 % (0-10); Platelet Count 155 thou/uL (130-400); Red Blood Cell (RBC) Count 3.71 mill/uL (4.70-6.10); Target Cells SLIGHT = 2-5 cells (100X) (0-1/hpf); White Blood Cell (WBC) Count 8.9 thou/uL (4.8-10.8)
[2019-10-27 05:56] LABS: Albumin 2.3 g/dL (3.4-4.8); Chloride 124 mmol/L (98-107); Sodium 149 mmol/L (136-145)
[2019-10-27] MEDS: HumaLOG 300 UNITS/3 ML VIAL SC PRN ×2 (05:57→12:44)
[2019-10-27 05:58] LABS: Globulin 2.9 g/dL (2.4-3.5); Glucose 208 mg/dL (80-115); Triglycerides 82 mg/dL (Less than 150)
[2019-10-27 05:59] LABS: Anion Gap 11 mmol/L (10-20); Carbon Dioxide 17 mmol/L (23-31)
[2019-10-27 06:01] LABS: Alkaline Phosphatase 47 U/L (40-110); Calc. Creatinine Clearance 53 mL/min (70-130); Estimated GFR-MDRD 62
[2019-10-27 06:02] LABS: BUN (Urea Nitrogen) 33 mg/dL (8.4-25.7)
[2019-10-27 06:03] LABS: AST (SGOT) 27 U/L (5-34); Cholesterol 37 mg/dl (< 200 Desired); HDL Cholesterol Less than 8 mg/dL (>60 Neg Risk)
[2019-10-27 06:04] LABS: ALT (SGPT) 11 U/L (8-55)
[2019-10-27] MEDS: Potassium Chloride 20 MEQ in Lactated Ringer's 1,000 ML IV SCH ×2 (06:30→20:44)
[2019-10-27 06:43] LABS: Phosphorus 1.4 mg/dL (2.3-4.7); Protein, Total 5.2 g/dL (5.8-8.1)
[2019-10-27 06:44] LABS: Cardiac Risk TEST NOT PERFORMED (Less than 4.5)
[2019-10-27 06:55] LABS: Hemoglobin (Hb) 11.5 g/dL (14.0-18.0); O2 Tension (PaO2), arterial 92.9 mmHg (> 80.0); Potassium - ABG Lab 3.07 mmol/L (3.70-5.30); pH, Arterial 7.41 (7.35-7.45)
[2019-10-27 06:56] LABS: CO2 Tension 24.2 mmHg (35.0-45.0); Puncture Site ALINE
[2019-10-27] MEDS ORDERED: Potassium Chloride 20 MEQ in Premix Bag 1 BAG IVPB SCH (07:15)
--- NOTE | 2019-10-27 07:39 | RAD ---
Exam: Chest one view HISTORY:Sepsis. Respiratory distress. Ventilated patient. Comparison: 10/26/2019 FINDINGS: Lines and tubes: Stable endotracheal tube, nasogastric tube and right-sided central venous catheter. Cardiac silhouette: Normal Aorta: Unremarkable Pulmonary vessels: Normal Costophrenic angles: Clear LUNGS: No masses or consolidation. Pneumothorax: None Osseous abnormalities: None IMPRESSION: No significant interval change.
[2019-10-27] MEDS ORDERED: Potassium Phosphate 15 MMOL in Sodium Chloride 0.9% 250 ML 250 ML IVPB SCH (08:00)
--- NOTE | 2019-10-27 09:05 | PRG ---
DATE OF SERVICE: 10/27/2019 SUBJECTIVE: A 59-year-old gentleman, remains intubated in the vent, sedated on Diprivan and fentanyl. OBJECTIVE: VITAL SIGNS: Pulse 119, sats 99%, respiratory rate 20, temperature 98. His I's and O's positive. GENERAL: He is sedated. CHEST: Decreased breath sounds. No wheezing. CARDIAC: Normal S1, S2. No gallops. ABDOMEN: Soft. NEUROLOGIC: He is sedated. LABORATORY DATA: White count 8000, H and H 11 and 36, platelet count is normal. Creatinine 1.4, BUN 33. His pO2 is 92, pCO2 rate of 16, 30%. Albumin is 2.3, phosphorus 1.4, magnesium 1.9. Cortisol level is 18. IMPRESSION: 1. Status post laparotomy for peritonitis. 2. Respiratory failure. 3. Severe deconditioning. 4. Poor nutritional status. PLAN: We will hold sedation. Reassess his situation within the next half an hour or so to see whether he is weanable. In the meantime, he is on fluconazole, meropenem by Infectious Disease and Zosyn and vancomycin. Continue PT, supportive care. One-half hour of critical care time. Job ID: [id number]
[2019-10-27] MEDS: Heparin 5,000 UNITS/ML VIAL SC SCH ×2 (09:26→20:54)
[2019-10-27] MEDS ORDERED: DC Sedation Protocol FS ONE (10:42)
--- NOTE | 2019-10-27 11:12 | PDOC.HOSPP ---
- Subjective Encounter Date: 10/27/19 Encounter Time: 11:10 Subjective: Mr. Rooney has been seen today in follow-up of SBO and sepsis. He had surgery last night, and was left intubated. He has been extubated just a few minutes ago. He appears to be breathing comfortably. - Objective Vital Signs & Weight: Vital Signs (12 hours) Temp Pulse Pulse Resp BP BP Pulse Ox 10/27/19 10:44 96 10/27/19 10:40 126 H 29 H 96 10/27/19 10:22 122 H 10/27/19 08:00 98.4 F 24 H 10/27/19 06:44 117 H 10/27/19 06:00 22 H 10/27/19 04:00 97.9 F 25 H 10/27/19 02:19 125 H 120/92 H 10/27/19 02:00 22 H 10/27/19 00:00 100.0 F H 22 H 10/26/19 23:12 98.8 F 134 H 18 91/59 L 100 Weight Admit Weight 146 lb 9.718 oz Weight 149 lb 4.047 oz Most Recent Monitor Data Heart Rate from ECG 119 NIBP 99/64 NIBP BP-Mean 75 Respiration from ECG 23 SpO2 96 I&O: 10/26/19 10/27/19 10/28/19 06:59 06:59 06:59 Intake Total 1668 4229.3 Output Total 260 1400 160 Balance 1408 2829.3 -160 Result Diagrams: 10/27/19 04:09 10/27/19 05:40 Additional Labs: Accuchecks 10/27/19 10/27/19 10/26/19 05:38 00:35 17:43 POC Glucose 186 H 138 H 167 H 10/26/19 16:49 POC Glucose 150 H Hospitalist ROS - Medication Medications: Active Medications Generic Name Dose Route Start Last Admin Trade Name Freq PRN Reason Stop Dose Admin Albuterol/Ipratropium 3 ml 10/26/19 18:30 10/27/19 10:21 Duoneb NEB 3 ml [id number] KACI Administration Heparin Sodium (Porcine) 5,000 units 10/21/19 21:00 10/27/19 09:26 Heparin SC 5,000 units BID KACI Administration Folic Acid 1 mg/ Thiamine HCl 51.2 mls @ 102.4 mls/hr 10/22/19 09:00 10/27/19 09:23 100 mg/ Sodium Chloride IV 51.2 mls 0900 KACI Administration As Directed Potassium Chloride 20 meq/ 1,010 mls @ 75 mls/hr 10/24/19 11:30 10/27/19 06:30 Lactated Ringer's IV 1,010 mls .[id number] KACI Administration Sodium Acetate 35 meq/ Sodium 1,910.0928 mls @ 79.587 mls/hr 10/26/19 22:00 10/26/19 22:59 Phosphate 20 mmol/ Potassium IV 10/31/19 22:01 1,910.0928 mls Acetate 40 meq/ Magnesium 2200 KACI Administration Sulfate 20 meq/ Multivitamins 10 ml/ Chromium/Copper/ Manganese/Seleni/Zn 1 ml/ Fat Emulsion Intravenous 250 ml/ Dextrose/Water/ Sterile Water/ Amino Acids Fluconazole/Sodium Chloride 200 mls @ 100 mls/hr 10/26/19 21:00 10/26/19 21:58 400 mg/ Device IVPB 200 mls 2100 KACI Administration Meropenem 1 gm/ Device 50 mls @ 100 mls/hr 10/26/19 20:00 10/27/19 04:44 IVPB 50 mls 0400,1200,2000 KACI Administration Vancomycin HCl 1.25 gm/ Sodium 250 mls @ 166.67 mls/hr 10/26/19 18:00 10/26/19 19:20 Chloride IVPB 250 mls 1800 KACI Administration Potassium Phosphate 15 mmol/ 255 mls @ 63.75 mls/hr 10/27/19 08:00 10/27/19 09:23 Sodium Chloride IVPB 10/27/19 12:00 255 mls NOW KACI Administration Potassium Chloride 20 meq/ 100 mls @ 50 mls/hr 10/27/19 07:15 10/27/19 08:28 Device IVPB 10/27/19 12:00 Not Given NOW [facility] Insulin Human Lispro 0 units 10/21/19 15:27 10/27/19 05:57 Humalog SC 2 unit .MILD SLIDING SCALE PRN Administration Mild Correctional Scale Sodium Chloride 10 ml 10/21/19 21:00 10/27/19 09:19 Flush - Normal Saline IVF Not Given Q12HR KACI - Exam Eye: PERRL, anicteric sclera Heart: RRR, no murmur, no gallops, no rubs, normal peripheral pulses Respiratory: rales Gastrointestinal: soft (wound vac is in place), no palpable masses, no hepatomegaly, distended (+ flank dullness) Extremities: no cyanosis, no edema Hosp A/P (1) Small bowel obstruction Code(s): K56.609 - UNSP INTESTNL OBST, UNSP TO PARTIAL VERSUS COMPLETE OBST Status: Acute (2) Malnutrition of moderate degree Code(s): E44.0 - MODERATE PROTEIN-CALORIE MALNUTRITION Status: Acute (3) Cirrhosis of liver Code(s): K74.60 - UNSPECIFIED CIRRHOSIS OF LIVER Status: Acute - Plan * Sepsis- ID recommendations noted- He has been transitioned to Meropenem, Vanco mycin and Fluconazole * Continue fluid resuscitation * FEN- will need some form of nutritional support * Continue IV fluids * Continue to monitor electrolytes and replace as needed
--- NOTE | 2019-10-27 14:15 | PRG ---
DATE OF SERVICE: 10/27/2019 SUBJECTIVE: Pio Rooney, who is in the ICU, is on the ventilator. Sedation has been held, hoping to extubate him today. OBJECTIVE: VITAL SIGNS: Heart rate 110 to 120, blood pressure 122/81. LUNGS: Clear to auscultation. CARDIAC: Regular rate and rhythm without murmur or gallop. ABDOMEN: Soft, less distended. Occasional bowel sounds. EXTREMITIES: Unremarkable. LABORATORY DATA: Gastric drainage overnight, 150 mL, urine output 1250 overnight. White count 8 and hemoglobin 11.7. Basic metabolic profile is unremarkable with sodium 149, potassium 3.0, BUN 33, creatinine 1.4, phosphorus 1.4, magnesium 1.9. Accu-Cheks . Gram stain on his ascites fluid culture revealed gram-negative mario and gram-positive cocci. Dr. Corona has seen him and antibiotic coverage adjusted, Diflucan and vancomycin. ASSESSMENT AND PLAN: 1. Acute kidney injury, improved and normal renal function, and he has had a slight bump in his BUN and creatinine, but it seems to be stable. His urine output is good. 2. Peritonitis, probably secondary to grade 2 cirrhosis. There was no enteric leak or other problems found intraoperatively yesterday. Antibiotic coverage per Dr. Corona. 3. Cirrhosis. 4. Respiratory failure on ventilator. Plan to extubate today. We would leave his NG tube in place. 5. Malnutrition, continue TPN. 6. Potassium replacement. Job ID: [id number]
--- NOTE | 2019-10-27 15:09 | PRG ---
DATE OF SERVICE: 10/27/2019 SUBJECTIVE: Mr. Rooney has been extubated. He is still delirious, but follows some commands. OBJECTIVE: VITAL SIGNS: T-max 100 at midnight, is now 97.8; saturating 99% with 3 L nasal cannula; heart rate 124; blood pressure 140/98. He is off pressors. GENERAL: Skinny, almost cachectic. HEENT: Ocular movements conjugate, clear sclerae. Central line in same position. LUNGS: Symmetric air entry. Somewhat coarse breath sounds. HEART: S1 and S2 regular rate. ABDOMEN: Moderately distended, not clear if he was having pain or not. Midline incision. Indwelling Clements catheter. Positive fluid balance for the past 24 to 48 hours. He has now negative balance over the past few hours of 400 negative. EXTREMITIES: He seems to be able to move extremities. LABORATORY DATA: White cell count is down to 8.9, hemoglobin 11.7, platelets 155, 20% bands, and 8% lymphocytes. Creatinine 1.41, which is improved. Bilirubin 2.0. Transaminases and alkaline phosphatase normal. Albumin 2.3. Microbiology with the ascitic fluid sample with one gram-negative mario and gram-positive cocci identified yet to be fully worked up by the lab. ASSESSMENT AND DISCUSSION: Alcoholism, liver cirrhosis, prior herniorrhaphy with mesh repair, adhesions with small bowel obstruction, chronic with exacerbation; and laparoscopy with removal of adhesions, reintervention with laparotomy with no major abnormalities found except for some ascitic fluid, evidence of peritonitis, now looks more like a secondary form of peritonitis because of the polymicrobial haily identified. Continue the broad-spectrum coverage initiated and await on full identification of the organisms before we deescalate the therapy. Job ID: [id number] [facility]
[2019-10-27] MEDS: Morphine 2 MG/ML VIAL SLOW IVP PRN ×2 (15:36→23:32)
--- NOTE | 2019-10-27 16:36 | PDOC.PALCO ---
Palliative Care Consult - Allergies Allergies/Adverse Reactions: Allergies Allergy/AdvReac Type Severity Reaction Status Date / Time No Known Drug Allergies Allergy Verified 10/21/19 04:21 - Objective Vital Signs: Vital Signs - Most Recent Temp Pulse Resp BP Pulse Ox 97.8 F 124 H 22 H 122/81 99 10/27/19 12:00 10/27/19 14:19 10/27/19 14:19 10/27/19 10:46 10/27/19 14:19 - Problem List (1) Palliative care encounter Code(s): Z51.5 - ENCOUNTER FOR PALLIATIVE CARE Current Visit: Yes Status: Acute (2) BRANDI (acute kidney injury) Code(s): N17.9 - ACUTE KIDNEY FAILURE, UNSPECIFIED Current Visit: Yes Status : Acute (3) Small bowel obstruction Code(s): K56.609 - UNSP INTESTNL OBST, UNSP TO PARTIAL VERSUS COMPLETE OBST Current Visit: Yes Status: Acute - Plan/Recommendations Plan: Patient awake, but confused. Palliative Care initiated conversation with patient related to Goal of Care and resuscitation status. Discussed he is extubated, and she is hopeful for meaningful recovery. Will continue to follow, hope to meet at bedside, and if patient able to discuss goal of care and resuscitation status. Please also refer to Albina Andrade RNavionics technician RN notes in note section. Emotional Support and Therapeutic listening. [50] minutes spent on this encounter with >50% of the time in counseling and coordination of care. Thank you for this very appropriate consult.
[2019-10-27] MEDS: Vancomycin HCl 1.25 GM in Sodium Chloride 0.9% 250 ML 250 ML IVPB SCH (17:21)
[2019-10-27] MEDS: Fluconazole In NaCl,Iso-Osm 400 MG in Premix Bag 1 BAG IVPB SCH (20:44)
[2019-10-27] MEDS: SODIUM PHOSPHATE IV SCH (22:59)
[2019-10-27] MEDS: [UNRECOGNIZED DRUG - OTHER] IV SCH (22:59)
[2019-10-27] MEDS: POTASSIUM ACETATE IV SCH (22:59)
[2019-10-27] MEDS: SODIUM ACETATE IV SCH (22:59)
[2019-10-28] MEDS: HumaLOG 300 UNITS/3 ML VIAL SC PRN ×2 (00:25→16:26)
[2019-10-28 07:28] LABS: ALT (SGPT) 15 U/L (8-55); AST (SGOT) 44 U/L (5-34); Albumin 2.2 g/dL (3.4-4.8); Alkaline Phosphatase 56 U/L (40-110); Anion Gap 12 mmol/L (10-20); BUN (Urea Nitrogen) 26 mg/dL (8.4-25.7); Bilirubin, Total 1.6 mg/dL (0.2-1.2); Calc. Creatinine Clearance 71 mL/min (70-130); Calcium 7.6 mg/dL (7.8-10.44); Carbon Dioxide 19 mmol/L (23-31); Chloride 123 mmol/L (98-107); Estimated GFR-MDRD 88; Globulin 3.6 g/dL (2.4-3.5); Glucose 126 mg/dL (80-115); Magnesium 2.1 mg/dL (1.6-2.6); Potassium 3.1 mmol/L (3.5-5.1); Protein, Total 5.8 g/dL (5.8-8.1); Sodium 151 mmol/L (136-145)
[2019-10-28] MEDS: Morphine 2 MG/ML VIAL SLOW IVP PRN ×4 (07:50→20:21)
[2019-10-28] MEDS ORDERED: Pantoprazole 40 MG VIAL IVP SCH ×2 (09:00)
[2019-10-28] MEDS: Heparin 5,000 UNITS/ML VIAL SC SCH ×2 (09:00→20:21)
[2019-10-28 09:03] LABS: Phosphorus 2.5 mg/dL (2.3-4.7)
--- NOTE | 2019-10-28 09:30 | RAD ---
CHEST 1 VIEW PORTABLE: Date: 10/28/2019 HISTORY: Sepsis, respiratory insufficiency. FINDINGS: Right central line and gastric tube in place. Heart size is normal. No significant confluent pneumoni a, overt edema, or pleural effusion. IMPRESSION: Stable chest. No new process. POS: RRE
--- NOTE | 2019-10-28 09:50 | PRG ---
DATE OF SERVICE: 10/28/2019 SUBJECTIVE: Pio Rooney is a 59-year-old gentleman who was extubated. He is in no distress. He just remains weak in the ICU. OBJECTIVE: VITAL SIGNS: Blood pressure 110/75, pulse 100, respiratory rate 18, pulse 80, and sat is 97%. CHEST: No wheezing. No crackles. CARDIAC: Normal S1, S2. No gallops. ABDOMEN: No masses. LABORATORY DATA: Sodium is 151. Chest x-ray is clear. ASSESSMENT: Abdominal sepsis, cirrhosis, severe deconditioning, and cachexia. PLAN: Antibiotics per Infectious Disease. Pulmonary is going to follow while in the ICU. Supportive care, PT. Job ID: [id number]
--- NOTE | 2019-10-28 09:59 | PDOC.HOSPP ---
- Subjective Encounter Date: 10/28/19 Encounter Time: 09:57 Subjective: Mr. Rooney was seen today in follow-up of SBO and sepsis. He is less enephalopathic this morning. He admits to some abdominal discomfort, but says it is getting better. - Objective Vital Signs & Weight: Vital Signs (12 hours) Temp Pulse Resp Pulse Ox 10/28/19 08:00 98.3 F 97 10/28/19 02:12 97 25 H 98 10/28/19 00:00 98.1 F 10/27/19 22:32 102 H 20 97 Weight Admit Weight 146 lb 9.718 oz Weight 149 lb 4.047 oz Most Recent Monitor Data Heart Rate from ECG 103 NIBP 110/75 NIBP BP-Mean 86 Respiration from ECG 28 SpO2 96 I&O: 10/27/19 10/28/19 10/29/19 06:59 06:59 06:59 Intake Total 4229.3 1390 Output Total 1400 1332 280 Balance 2829.3 58 -280 Result Diagrams: 10/27/19 04:09 10/28/19 03:30 Additional Labs: Accuchecks 10/28/19 10/27/19 10/27/19 00:24 17:38 12:48 POC Glucose 151 H 156 H 157 H Hospitalist ROS - Medication Medications: Active Medications Generic Name Dose Route Start Last Admin Trade Name Freq PRN Reason Stop Dose Admin Albuterol/Ipratropium 3 ml 10/26/19 18:30 10/28/19 02:12 Duoneb NEB 3 ml [id number] KACI Administration Heparin Sodium (Porcine) 5,000 units 10/21/19 21:00 10/27/19 20:54 Heparin SC 5,000 units BID KACI Administration Folic Acid 1 mg/ Thiamine HCl 51.2 mls @ 102.4 mls/hr 10/22/19 09:00 10/27/19 09:23 100 mg/ Sodium Chloride IV 51.2 mls 0900 KACI Administration As Directed Sodium Acetate 35 meq/ Sodium 1,910.0928 mls @ 79.587 mls/hr 10/26/19 22:00 10/27/19 22:59 Phosphate 20 mmol/ Potassium IV 10/31/19 22:01 1,910.0928 mls Acetate 40 meq/ Magnesium 2200 KACI Administration Sulfate 20 meq/ Multivitamins 10 ml/ Chromium/Copper/ Manganese/Seleni/Zn 1 ml/ Fat Emulsion Intravenous 250 ml/ Dextrose/Water/ Sterile Water/ Amino Acids Fluconazole/Sodium Chloride 200 mls @ 100 mls/hr 10/26/19 21:00 10/27/19 20:44 400 mg/ Device IVPB 200 mls 2100 KACI Administration Meropenem 1 gm/ Device 50 mls @ 100 mls/hr 10/26/19 20:00 10/27/19 20:44 IVPB 50 mls 0400,1200,2000 KACI Administration Vancomycin HCl 1.25 gm/ Sodium 250 mls @ 166.67 mls/hr 10/26/19 18:00 10/27/19 17:21 Chloride IVPB 250 mls 1800 KACI Administration Dexmedetomidine HCl 400 mcg/ 100 mls @ 0 mls/hr 10/27/19 16:45 10/27/19 17:13 Sodium Chloride IVPB 100 mls INF KACI Administration Protocol Titrate Insulin Human Lispro 0 units 10/21/19 15:27 10/28/19 00:25 Humalog SC 2 unit .MILD SLIDING SCALE PRN Administration Mild Correctional Scale Morphine Sulfate 2 mg 10/27/19 10:42 10/27/19 23:32 Morphine SLOW IVP 2 mg Q2H PRN Administration Mild-Moderate Pain (1-5) Sodium Chloride 10 ml 10/21/19 21:00 10/27/19 20:44 Flush - Normal Saline IVF Not Given Q12HR KACI - Exam Eye: PERRL, anicteric sclera Heart: RRR, no murmur, no gallops, no rubs, normal peripheral pulses Respiratory: CTAB, no wheezes, no rales, no ronchi, normal chest expansion Gastrointestinal: soft, distended (with hypoactive bowel sounds) Extremities: no cyanosis, no edema Hosp A/P (1) Small bowel obstruction Code(s): K56.609 - UNSP INTESTNL OBST, UNSP TO PARTIAL VERSUS COMPLETE OBST Status: Acute (2) Malnutrition of moderate degree Code(s): E44.0 - MODERATE PROTEIN-CALORIE MALNUTRITION Status: Acute (3) Cirrhosis of liver Code(s): K74.60 - UNSPECIFIED CIRRHOSIS OF LIVER Status: Acute - Plan * Sepsis- continue Meropenem, Vancomycin and Fluconazole * SBO- continue bowel rest- nutritional support with TPN * Hypernatremia- will place him on hypotonic fluids * Hypokalemia- continue to replace * BRANDI- improved
[2019-10-28 10:16] LABS: Mean Corpuscular HGB CONC 31.7 g/dL (32.0-36.0); Mean Corpuscular Hemoglobin 30.9 pg (27.0-31.0); Mean Corpuscular Volume 97.6 fL (78.0-98.0); Platelet Count 97 thou/uL (130-400); Red Blood Cell (RBC) Count 3.23 mill/uL (4.70-6.10)
[2019-10-28 10:17] LABS: Band 18 % (5-11); Lymphocytes 3 % (21-51); Manual Diff?? YES; Mean Platelet Volume 10.5 fL (7.4-10.4); Monocytes 6 % (0-10); Neutrophil 73 % (42-75)
[2019-10-28 10:18] LABS: Nucleated RBC 2 % (0); Platelet Morphology Comment Appears Decreased; Target Cells SLIGHT = 2-5 cells (100X) (0-1/hpf)
[2019-10-28 11:01] LABS: #Eosinphils 0.1 thou/uL (0.0-0.7); #Lymphocytes 1.2 thou/uL (1.20-3.40); #Monocytes 0.8 thou/uL (0.11-0.59); %Eosinophils 0.5 % (0.0-10.0); %Monocytes 6.6 % (0.0-10.0); %Neutrophils 82.9 % (42.0-75.0); MDiff Complete? YES; Polychromasia SLIGHT = 2-3 cells (100X) (0-2/hpf)
[2019-10-28] MEDS: MEROPENEM 1 GM/50 ML 1 GM in Premix Bag 1 BAG IVPB SCH ×2 (12:50→20:21)
[2019-10-28] MEDS ORDERED: Potassium ACETATE 40 MEQ/20 ML VIAL IV SCH (13:15)
--- NOTE | 2019-10-28 13:29 | PRG ---
DATE OF SERVICE: 10/28/2019 SUBJECTIVE: Pio Rooney is in ICU today. He is on Precedex for behavioral reasons. He seems to be doing better. They are weaning that. OBJECTIVE: VITAL SIGNS: Temperature 98.2 degrees, respiratory rate 24, saturations 97%, blood pressure 103/73. LUNGS: Clear to auscultation. CARDIAC: Regular rate and rhythm without murmur or gallop. ABDOMEN: Soft. Bowel sounds present. Slightly protuberant. EXTREMITIES: Unremarkable. LABORATORY DATA: White count 12, hemoglobin 10. Sodium 151, potassium 3.1, chloride 123, BUN 26, creatinine 1.04. LR had been decreased to 40 per hour. Bilirubin is 1.6, slightly decreased from 2 yesterday. Phosphorus is 2.5, magnesium is 2.1. ASSESSMENT AND PLAN: 1. Status post laparotomy with findings of ascites. Fluid cultures reveal peritonitis without enteric leak, Enterobacter and Enterococcus gram-negative rods. Dr. Corona has seen him. Antibiotics adjusted. 2. Acute kidney injury, improved, in slight exacerbation, now improving daily. Vancomycin levels will be followed. Doses adjusted. Continue hydration. 3. Malnutrition. Continue total parenteral nutrition. Adjust for electrolyte abnormalities, low potassium and high sodium. Magnesium and phosphorus have normalized. 4. Cirrhosis. 5. Ascites. 6. Three weeks ago, laparoscopic lysis of adhesions for a bowel obstruction. Job ID: [id number]
[2019-10-28] MEDS ORDERED: Potassium ACETATE 40 MEQ in Sodium Chloride 0.9% 250 ML 250 ML IV SCH (13:30)
[2019-10-28] MEDS: Dextrose 5% w/ 20 mEq KCl 1,000 ML IV SCH (14:08)
--- NOTE | 2019-10-28 15:51 | PDOC.EVN ---
Event Note - Event Note Event Note: Patient noted to have bright red blood from the NG tube. Will notify Surgery. Transition him to Protonix drip, and add Octreotide drip. Consult GI.
[2019-10-28 16:06] LABS: Hemoglobin 10.2 g/dL (14.0-18.0); Platelet Count 126 thou/uL (130-400)
[2019-10-28] MEDS: Octreotide Acetate 1,250 MCG in Sodium Chloride 0.9% 250 ML 250 ML IVPB SCH (16:37)
[2019-10-28] MEDS: Pantoprazole 80 MG in Sodium Chloride 0.9% 100 ML IVPB SCH (16:37)
[2019-10-28] MEDS: Vancomycin HCl 1.25 GM in Sodium Chloride 0.9% 250 ML 250 ML IVPB SCH (17:41)
--- NOTE | 2019-10-28 17:55 | PRG ---
DATE OF SERVICE: 10/28/2019 SUBJECTIVE: The patient was noted with hematemesis from the NG tube and GI has been consulted. He was started on various interventions in the face of this change. He is more alert than previously noted. Follows commands. Denies pain. OBJECTIVE: VITAL SIGNS: T-max 100 yesterday. He has been afebrile today. BP 119/83, heart rate 95, and respiratory rate 20. HEENT: Almost cachectic, temporal wasting noted. Ocular movements conjugate. LUNGS: Symmetric air entry. Faint basilar crackles. HEART: S1 and S2. Regular rate. ABDOMEN: Soft. Midline incision. EXTREMITIES: He is able to move extremities. LABORATORY DATA: White cell count 12,000, hemoglobin 10. Repeat hemoglobin was 10 and still platelets were 126. Chemistry; 1.04 creatinine, bilirubin 1.6, AST 44. Microbiology with Enterobacter cloacae, Enterococcus and gram-negative mario. Pathology report fibrous obliteration of appendiceal tip. No inflammation identified. ASSESSMENT AND DISCUSSION: Alcoholism, liver cirrhosis, prior herniorrhaphy, mesh repair, adhesions, small bowel obstruction, chronic exacerbation, laparoscopy, removal of adhesions, reintervention with no major abnormalities found except for some ascitic fluid. Evidence of peritonitis, now appears to be more of a secondary form with a polymicrobial haily, on broad-spectrum coverage, developed some GI bleed and GI is evaluating the patient now. Job ID: [id number]
[2019-10-28 19:30] LABS: Hemoglobin 10.1 g/dL (14.0-18.0); Platelet Count 127 thou/uL (130-400)
[2019-10-28] MEDS: Potassium Chloride 20 MEQ in Lactated Ringer's 1,000 ML IV SCH (20:14)
[2019-10-28] MEDS: Fluconazole In NaCl,Iso-Osm 400 MG in Premix Bag 1 BAG IVPB SCH (20:39)
[2019-10-28] MEDS: POTASSIUM ACETATE IV SCH (22:00)
[2019-10-28] MEDS: POTASSIUM PHOSPHATE IV SCH (22:00)
[2019-10-28] MEDS: [UNRECOGNIZED DRUG - OTHER] IV SCH (22:00)
[2019-10-28] MEDS: SODIUM ACETATE IV SCH (22:00)
[2019-10-29] MEDS: Dextrose 5% w/ 20 mEq KCl 1,000 ML IV SCH ×3 (00:24→12:02)
[2019-10-29] MEDS: Morphine 4 MG/ML VIAL SLOW IVP PRN ×3 (00:26→22:15)
[2019-10-29] MEDS: HumaLOG 300 UNITS/3 ML VIAL SC PRN (00:32)
[2019-10-29] MEDS: Pantoprazole 80 MG in Sodium Chloride 0.9% 100 ML IVPB SCH ×3 (02:36→21:59)
[2019-10-29] MEDS: MEROPENEM 1 GM/50 ML 1 GM in Premix Bag 1 BAG IVPB SCH ×4 (05:17→19:58)
[2019-10-29] MEDS: Vancomycin 1 GM in Premix Bag 1 BAG IVPB SCH ×2 (05:17→16:59)
[2019-10-29 05:31] LABS: #Eosinphils 0.2 thou/uL (0.0-0.7); #Monocytes 0.4 thou/uL (0.11-0.59); #Neutrophils 8.4 thou/uL (1.40-6.50); %Basophils 0.3 % (0.0-1.0); %Eosinophils 1.8 % (0.0-10.0); %Lymphocytes 9.9 % (21.0-51.0); %Monocytes 4.3 % (0.0-10.0); %Neutrophils 83.7 % (42.0-75.0); Hemoglobin 9.8 g/dL (14.0-18.0); Mean Corpuscular HGB CONC 31.7 g/dL (32.0-36.0); Mean Corpuscular Hemoglobin 30.7 pg (27.0-31.0); Mean Corpuscular Volume 96.9 fL (78.0-98.0); Mean Platelet Volume 10.6 fL (7.4-10.4); Platelet Count 119 thou/uL (130-400); Red Blood Cell (RBC) Count 3.17 mill/uL (4.70-6.10); White Blood Cell (WBC) Count 10.1 thou/uL (4.8-10.8)
[2019-10-29 05:45] LABS: ALT (SGPT) 27 U/L (8-55); AST (SGOT) 72 U/L (5-34); Alkaline Phosphatase 68 U/L (40-110); Anion Gap 11 mmol/L (10-20); BUN (Urea Nitrogen) 24 mg/dL (8.4-25.7); Bilirubin, Total 1.5 mg/dL (0.2-1.2); Calc. Creatinine Clearance 76 mL/min (70-130); Calcium 7.3 mg/dL (7.8-10.44); Carbon Dioxide 24 mmol/L (23-31); Chloride 118 mmol/L (98-107); Estimated GFR-MDRD Greater than 90; Globulin 3.6 g/dL (2.4-3.5); Glucose 250 mg/dL (80-115); Magnesium 2.1 mg/dL (1.6-2.6); Phosphorus 2.7 mg/dL (2.3-4.7); Potassium 3.5 mmol/L (3.5-5.1); Protein, Total 5.6 g/dL (5.8-8.1); Sodium 149 mmol/L (136-145)
--- NOTE | 2019-10-29 08:00 | RAD ---
PORTABLE CHEST: Date: 10/29/2019 PROVIDED CLINICAL HISTORY: Respiratory insufficiency. FINDINGS: Comparison with 10/28/2019. Significant interval change with respect to the prior examination is not apparent. IMPRESSION: As above. POS: OFF
--- NOTE | 2019-10-29 09:21 | CON ---
DATE OF CONSULTATION: 10/28/2019 REASON FOR CONSULTATION: GI bleeding. HISTORY OF PRESENT ILLNESS: Mr. Pio Rooney is a fragile looking, male, hospitalized approximately 5 days ago He underwent surgery by Dr. Felton adhesions . The patient had to go back to the OR two days ago with some The patient was seen by Dr. Jono Corona for ID consult. The patient had NG tube. The patient . Had a stat CBC done. The blood count did not drop down. This morning, his hemoglobin was 10, now it is 10.2. only bilious material small amount of blood-stained fluid. Again the appears bilious material. The patient had no previous The patient has history of alcohol abuse over the he quit drinking approximately a month ago because of his recurrent episodes of abdominal pain, nausea, and vomiting. The patient lost some weight over the last one month. The patient also has history of chronic smoking and again Apparently, he has had several therapeutic paracenteses done in the past he has no prior history of peptic ulcer ALLERGIES: NO KNOWN DRUG ALLERGIES. SOCIAL HISTORY: The patient is smoker, smokes one pack of cigarettes per day. He has a history of alcohol abuse because of . MEDICAL ILLNESS: 1. Alcohol abuse. 2. History of ascites with previous paracentesis. 3. Laparoscopic cholecystectomy. 4. Ventral hernia repair. 5. . 6. Hypertension. FAMILY HISTORY: Father of lung cancer. Sister of pancreatic cancer. MEDICATIONS: meropenem , pantoprazole, vancomycin REVIEW OF SYSTEMS: A 10-point system reviewed. CONSTITUTIONAL: History of weight loss, nausea, vomiting, no history of fever or chills. HEAD: No chronic headache. EYES: No diplopia. No impaired vision. EARS: No hearing loss. No drainage. THROAT: No dysphagia. LUNGS: No chronic coughing, hemoptysis, or orthopnea. CARDIOVASCULAR SYSTEM: No chest pain. No palpitation. No orthopnea or PND. GI: As per History of Present Illness. MUSCULOSKELETAL: PHYSICAL EXAMINATION: GENERAL: Revealed a fragile looking, thin built, male, appears very comfortable, in no distress. VITAL SIGNS: Afebrile. His pulse is 95, blood pressure HEENT: Conjunctivae clear. NECK: Supple. CARDIOVASCULAR SYSTEM: Normal heart sounds. LUNGS: Clear to auscultation. ABDOMEN: Diffusely tender soft bowel sounds. EXTREMITIES: LABORATORY DATA: WBC 12,000 this morning, hemoglobin 10.0, hematocrit 31.5, repeat is 10.2 and 31.4, platelet count is MCV is 97.6. Chemistry panel; sodium 151, albumin 2.2. CLINICAL IMPRESSION: 1. A 59-year-old male with liver cirrhosis, presents with abdominal pain, nausea, and vomiting, was found to have evidence of underwent surgery by Dr. Felton twice the NG tube is draining into the canister and the canister is catheter shows this is seen in the middle of the tube . 2. History liver cirrhosis and ascites . 3. . RECOMMENDATIONS: Continue for the time being. As he is not actively bleeding Will Job ID: [id number]
[2019-10-29] MEDS: Morphine 2 MG/ML VIAL SLOW IVP PRN ×4 (09:43→19:58)
[2019-10-29] MEDS: Heparin 5,000 UNITS/ML VIAL SC SCH ×2 (09:43→20:03)
--- NOTE | 2019-10-29 16:46 | PRG ---
DATE OF SERVICE: 10/29/2019 SUBJECTIVE: Mr. Rooney was then transferred to [facility]. He is awake. NG tube is going to be removed. He denies any pain, and no dyspnea. OBJECTIVE: VITAL SIGNS: T-max 98.8, BP 130/80, heart rate 105, O2 saturations 100, room air. HEENT: Ocular movements conjugate. GENERAL: He appears still frail and almost cachectic. LUNGS: Symmetric, clear breath sounds. HEART: S1, S2. Regular rate. ABDOMEN: Moderately distended, but not tender. Midline dressing. EXTREMITIES: He is able to move all extremities. Some subcutaneous edema noted in lower extremities. LABORATORY DATA: White cell count is down to 10.1, hemoglobin 9.8, platelets 119, 82% neutrophils. Sodium 149, creatinine 0.99, bilirubin 1.5, AST 72, ALT 27, and albumin 2.0. Microbiology with E. cloacae complex resistant to third-generation cephalosporins and quinolones. He has Stenotrophomonas maltophilia, which is susceptible to levofloxacin and trimethoprim sulfa, and he also has some E. faecalis. The patient will be switched to the meropenem plus levofloxacin combination. Discontinue Diflucan and continue vancomycin. ASSESSMENT AND DISCUSSION: Alcoholism, liver cirrhosis, herniorrhaphy, mesh repair, adhesions, small bowel obstruction, exacerbation of the obstruction, laparoscopy, removal of adhesions, reintervention with ascitic fluid, and now retrospective evidence of peritonitis, maybe a little leak or maybe a small area of perforation that is sealed. The patient is doing well and conservative management for peritonitis with meropenem, levofloxacin, and vancomycin to be continued. Job ID: [id number] [facility]
[2019-10-29] MEDS: Octreotide Acetate 1,250 MCG in Sodium Chloride 0.9% 250 ML 250 ML IVPB SCH (16:59)
--- NOTE | 2019-10-29 17:18 | PRG ---
DATE OF SERVICE: 10/29/2019 SUBJECTIVE: Pio Rooney this morning is awake, alert, responsive, appears to be less agitated. OBJECTIVE: VITAL SIGNS: Temperature 98, pulse 79, sats 92% on 2 L, blood pressure 113/77. CHEST: No wheezing or crackles. CARDIAC: Normal S1, S2. No gallops. ABDOMEN: No masses. LABORATORY DATA: White count 10,000. His electrolytes are normal. Albumin is low at 2. IMPRESSION: 1. Abdominal sepsis, status post lab pending. 2. Cachexia. 3. Alcoholic liver disease. PLAN: Palliative care team to meet with family tomorrow. Pulmonary howard, he is relatively stable. We will continue to follow while he is in the MICU. Job ID: [id number]
--- NOTE | 2019-10-29 19:16 | PDOC.HOSPP ---
- Subjective Encounter Date: 10/29/19 Encounter Time: 11:00 Subjective: Patient seen and examined for multiple medical issues. Has been in the hospital for last 9 days. Denies any nausea or vomiting. On TPN. No fever or chills - Objective Vital Signs & Weight: Vital Signs (12 hours) Temp Pulse Pulse Pulse Resp BP BP 10/29/19 19:07 98.0 F 10/29/19 18:49 102 H 26 H 10/29/19 16:00 99.6 F 10/29/19 15:09 105 H 23 H 10/29/19 11:30 98.8 F 10/29/19 10:37 102 H 22 H 10/29/19 10:05 98 89 128/83 119/75 10/29/19 08:00 10/29/19 07:23 99 17 Pulse Ox Pulse Ox Pulse Ox 10/29/19 19:07 10/29/19 18:49 100 10/29/19 16:00 10/29/19 15:09 100 10/29/19 11:30 10/29/19 10:37 100 10/29/19 10:05 98 100 10/29/19 08:00 98 10/29/19 07:23 Weight Admit Weight 136 lb Weight 151 lb 8 oz Most Recent Monitor Data Heart Rate from ECG 105 NIBP 128/79 NIBP BP-Mean 95 Respiration from ECG 14 SpO2 100 I&O: 10/28/19 10/29/19 10/30/19 06:59 06:59 06:59 Intake Total 1390 4202.3 Output Total 1332 1410 Balance 58 2792.3 Result Diagrams: 10/29/19 05:11 10/29/19 05:11 Additional Labs: Accuchecks 10/29/19 10/29/19 10/29/19 18:19 12:57 05:56 POC Glucose 176 H 138 H 141 H 10/29/19 00:19 POC Glucose 178 H EKG Reviewed by me: Yes (Sinus rhythm on telemetry) Hospitalist ROS - Review of Systems Respiratory: denies: cough, dry, shortness of breath, hemoptysis, SOB with excertion, pleuritic pain, sputum, wheezing, other Cardiovascular: denies: chest pain, palpitations, orthopnea, paroxysmal noc. dyspnea, edema, light headedness, other - Medication Medications: Active Medications Generic Name Dose Route Start Last Admin Trade Name Yazanq PRN Reason Stop Dose Admin Albuterol/Ipratropium 3 ml 10/26/19 18:30 10/29/19 18:49 Duoneb NEB 3 ml [id number] KACI Administration Heparin Sodium (Porcine) 5,000 units 10/21/19 21:00 10/29/19 09:43 Heparin SC 5,000 units BID KACI Administration Folic Acid 1 mg/ Thiamine HCl 51.2 mls @ 102.4 mls/hr 10/22/19 09:00 10/29/19 09:42 100 mg/ Sodium Chloride IV 51.2 mls 0900 KACI Administration As Directed Meropenem 1 gm/ Device 50 mls @ 100 mls/hr 10/26/19 20:00 10/29/19 12:00 IVPB 50 mls 0400,1200,2000 KACI Administration Dexmedetomidine HCl 400 mcg/ 100 mls @ 0 mls/hr 10/27/19 16:45 10/27/19 17:13 Sodium Chloride IVPB 100 mls INF KACI Administration Protocol Titrate Sodium Acetate 35 meq/ 1,917.6297 mls @ 79.901 mls/hr 10/28/19 22:00 10/28/19 22:00 Potassium Phosphate 20 mmol/ IV 1,917.6297 mls Potassium Acetate 60 meq/ 2200 KACI Administration Magnesium Sulfate 10 meq/ Multivitamins 10 ml/ Chromium/ Copper/Manganese/Seleni/Zn 1 ml/ Fat Emulsion Intravenous 250 ml/ Dextrose/Water/ Sterile Water/ Amino Acids Pantoprazole Sodium 80 mg/ 100 mls @ 10 mls/hr 10/28/19 15:45 10/29/19 12:01 Sodium Chloride IVPB 100 mls INF KACI Administration Octreotide Acetate 1,250 mcg/ 251.25 mls @ 10.05 mls/hr 10/28/19 15:45 10/29/19 16:59 Sodium Chloride IVPB 251.25 mls INF KACI Administration 50 MCG/HR Vancomycin HCl 1 gm/ Device 200 mls @ 166.67 mls/hr 10/29/19 06:00 10/29/19 16:59 IVPB 200 mls 0600,1800 KACI Administration Insulin Human Lispro 0 units 10/21/19 15:27 10/29/19 00:32 Humalog SC 2 unit .MILD SLIDING SCALE PRN Administration Mild Correctional Scale Morphine Sulfate 2 mg 10/27/19 10:42 10/29/19 16:05 Morphine SLOW IVP 2 mg Q2H PRN Administration Mild-Moderate Pain (1-5) Morphine Sulfate 4 mg 10/27/19 13:47 10/29/19 05:17 Morphine SLOW IVP 4 mg Q2H PRN Administration Moderate to Severe Pain (6-10) Sodium Chloride 10 ml 10/21/19 21:00 10/29/19 09:52 Flush - Normal Saline IVF 10 ml Q12HR KACI Administration - Exam General Appearance: ill appearing Heart: RRR, no gallops Respiratory: no wheezes, no ronchi Gastrointestinal: soft, no guarding, no rigidity Extremities: no cyanosis Neurological: no new deficit Psychiatric: normal affect, A&O x 3 Hosp A/P (1) GI bleeding Code(s): K92.2 - GASTROINTESTINAL HEMORRHAGE, UNSPECIFIED Status: Acute (2) Peritonitis Code(s): K65.9 - PERITONITIS, UNSPECIFIED Status: Acute (3) Malnutrition of moderate degree Code(s): E44.0 - MODERATE PROTEIN-CALORIE MALNUTRITION Status: Chronic (4) Small bowel obstruction Code(s): K56.609 - UNSP INTESTNL OBST, UNSP TO PARTIAL VERSUS COMPLETE OBST Status: Acute (5) Hypokalemia Code(s): E87.6 - HYPOKALEMIA Status: Acute (6) Hypernatremia Code(s): E87.0 - HYPEROSMOLALITY AND HYPERNATREMIA Status: Acute (7) Cirrhosis of liver Code(s): K74.60 - UNSPECIFIED CIRRHOSIS OF LIVER Status: Chronic (8) Other issues per previous notes - Plan DVT proph w/SCDs 10/28 Continue IV Protonix with octreotide. GI input appreciated. Continue TPN. IV fluids reduced to KVO. Continue antibiotics per infectious disease recheck labs in a.m. DVT prophylaxis with subcu heparin monitor blood sugars. Recheck labs in a.m. Continue supportive measures. Continue physical therapy and occupation therapy
[2019-10-29] MEDS: [UNRECOGNIZED DRUG - OTHER] IV SCH (21:59)
[2019-10-29] MEDS: SODIUM ACETATE IV SCH (21:59)
[2019-10-29] MEDS: POTASSIUM PHOSPHATE IV SCH (21:59)
[2019-10-29] MEDS: POTASSIUM ACETATE IV SCH (21:59)
--- NOTE | 2019-10-29 22:06 | PRG ---
DATE OF SERVICE: 10/29/2019 SUBJECTIVE: This is a 59-year-old male, hospitalized with abdominal pain, nausea, vomiting following a bowel obstruction, undergone surgery twice with Dr. Felton. I was called to see the patient by Dr. Queen because of some blood in the NG tube. The bleeding appears to be more possibly swallowed blood than actual GI bleeding. His blood count is stable. Hemoglobin is stable around 10 g to 9.8. The NG tube has been removed today. He has passed some flatus. Drinking some water. No abdominal pain. No nausea, no vomiting. History of liver cirrhosis and has had paracentesis done in the past. He has seen a real estate sales associate in [place], [place], but he had not seen him for a few years. PHYSICAL EXAMINATION: GENERAL: He is very thin built, appears comfortable. VITAL SIGNS: His pulse is around 102, blood pressure is 119/78. Afebrile. CARDIOVASCULAR SYSTEM AND LUNGS: Within normal limits. ABDOMEN: Soft. No organomegaly. Abdomen is mildly tender over the lower abdomen. No rebound or guarding. LABORATORY DATA: Over the last 24 hours remains stable around 10 g hemoglobin and most recent one 9.2, hematocrit 30.7, platelet count is low at 19,000. His lytes are normal. BUN is 24, creatinine 0.99. IMPRESSION: 1. Bowel obstruction, status post surgery. 2. History of liver cirrhosis, ascites. 3. Mild blood seen in the NG tube yesterday, which most likely possibly swallowed blood because his blood count has been stable. Also NG tube . RECOMMENDATIONS: 1. Follow up H and H. 2. Transfuse p.r.n. 3. Advance diet as tolerated by the surgical team. Job ID: [id number]
[2019-10-30] MEDS: Morphine 4 MG/ML VIAL SLOW IVP PRN ×3 (02:12→14:12)
[2019-10-30] MEDS: MEROPENEM 1 GM/50 ML 1 GM in Premix Bag 1 BAG IVPB SCH ×3 (03:56→20:17)
[2019-10-30 05:19] LABS: #Eosinphils 0.1 thou/uL (0.0-0.7); #Monocytes 0.5 thou/uL (0.11-0.59); #Neutrophils 6.6 thou/uL (1.40-6.50); %Basophils 0.1 % (0.0-1.0); %Eosinophils 1.4 % (0.0-10.0); %Lymphocytes 12.1 % (21.0-51.0); %Monocytes 5.9 % (0.0-10.0); %Neutrophils 80.5 % (42.0-75.0); Hemoglobin 9.4 g/dL (14.0-18.0); Mean Corpuscular HGB CONC 31.5 g/dL (32.0-36.0); Mean Corpuscular Hemoglobin 30.4 pg (27.0-31.0); Mean Corpuscular Volume 96.5 fL (78.0-98.0); Mean Platelet Volume 10.6 fL (7.4-10.4); Platelet Count 114 thou/uL (130-400); RBC Distribution Width 13.9 % (11.5-14.5); White Blood Cell (WBC) Count 8.2 thou/uL (4.8-10.8)
[2019-10-30 05:31] LABS: Phosphorus 2.6 mg/dL (2.3-4.7)
[2019-10-30 05:39] LABS: Anion Gap 11 mmol/L (10-20); BUN (Urea Nitrogen) 20 mg/dL (8.4-25.7); Calc. Creatinine Clearance 95 mL/min (70-130); Carbon Dioxide 23 mmol/L (23-31); Chloride 111 mmol/L (98-107); Estimated GFR-MDRD Greater than 90; Glucose 132 mg/dL (80-115); Magnesium 1.7 mg/dL (1.6-2.6); Potassium 3.5 mmol/L (3.5-5.1); Sodium 141 mmol/L (136-145)
[2019-10-30] MEDS: Vancomycin 1 GM in Premix Bag 1 BAG IVPB SCH ×2 (05:47→17:18)
[2019-10-30] MEDS: Heparin 5,000 UNITS/ML VIAL SC SCH ×2 (08:57→20:18)
[2019-10-30] MEDS: Pantoprazole 80 MG in Sodium Chloride 0.9% 100 ML IVPB SCH (09:09)
--- NOTE | 2019-10-30 09:12 | PRG ---
DATE OF SERVICE: 10/30/2019 SUBJECTIVE: Pio Rooney is a 59-year-old gentleman. This morning, looks much stronger, though he is still weak. OBJECTIVE: VITAL SIGNS: Temperature 97, pulse 95, sats 100% on room air, blood pressure 118/80. CHEST: Decreased breath sounds. No wheezing. CARDIAC: Normal S1, S2. No gallops. ABDOMEN: No masses. LABORATORY DATA: White count 9000, H and H are stable. Lytes are normal. ASSESSMENT AND PLAN: Status post lap; respiratory failure, resolved, severe deconditioning; cachexia. He can be transferred to the surgical floor. Otherwise, continue PT, supportive care. Pulmonary is following with the patient now in the MICU. He is on multiple antibiotics as per Infectious Disease. Job ID: [id number]
--- NOTE | 2019-10-30 18:49 | PDOC.HOSPP ---
- Subjective Encounter Date: 10/30/19 Encounter Time: 10:30 Subjective: Patient seen and examined for peritonitis with respiratory failure and other medical issues. Pain controlled. On TPN. - Objective Vital Signs & Weight: Vital Signs (12 hours) Temp Pulse Resp BP Pulse Ox 10/30/19 16:50 97 10/30/19 15:30 99.2 F 94 18 127/85 97 10/30/19 14:37 109 H 21 H 99 10/30/19 11:15 97.7 F 10/30/19 10:48 106 H 21 H 100 10/30/19 08:00 100 10/30/19 07:30 95 20 100 10/30/19 07:09 97.6 F Weight Admit Weight 136 lb Weight 163 lb 1 oz Most Recent Monitor Data Heart Rate from ECG 102 NIBP 133/85 NIBP BP-Mean 101 Respiration from ECG 24 SpO2 100 I&O: 10/29/19 10/30/19 10/31/19 06:59 06:59 06:59 Intake Total 4202.3 4883 Output Total 1410 1425 Balance 2792.3 3458 Result Diagrams: 10/30/19 04:54 10/30/19 04:54 Additional Labs: Accuchecks 10/30/19 10/30/19 10/30/19 16:54 12:20 05:54 POC Glucose 122 H 138 H 140 H 10/30/19 00:11 POC Glucose 140 H EKG Reviewed by me: Yes (Sinus rhythm on telemetry) Hospitalist ROS - Review of Systems Respiratory: denies: cough, dry, shortness of breath, hemoptysis, SOB with excertion, pleuritic pain, sputum, wheezing, other Cardiovascular: denies: chest pain, palpitations, orthopnea, paroxysmal noc. dyspnea, edema, light headedness, other - Medication Medications: Active Medications Generic Name Dose Route Start Last Admin Trade Name Freq PRN Reason Stop Dose Admin Albuterol/Ipratropium 3 ml 10/26/19 18:30 10/30/19 14:37 Duoneb NEB 3 ml [id number] KACI Administration Heparin Sodium (Porcine) 5,000 units 10/21/19 21:00 10/30/19 08:57 Heparin SC 5,000 units BID KACI Administration Folic Acid 1 mg/ Thiamine HCl 51.2 mls @ 102.4 mls/hr 10/22/19 09:00 10/30/19 10:50 100 mg/ Sodium Chloride IV 51.2 mls 0900 KACI Administration As Directed Meropenem 1 gm/ Device 50 mls @ 100 mls/hr 10/26/19 20:00 10/30/19 10:50 IVPB 50 mls 0400,1200,2000 KACI Administration Sodium Acetate 35 meq/ 1,917.6297 mls @ 79.901 mls/hr 10/28/19 22:00 10/29/19 21:59 Potassium Phosphate 20 mmol/ IV 1,917.6297 mls Potassium Acetate 60 meq/ 2200 KACI Administration Magnesium Sulfate 10 meq/ Multivitamins 10 ml/ Chromium/ Copper/Manganese/Seleni/Zn 1 ml/ Fat Emulsion Intravenous 250 ml/ Dextrose/Water/ Sterile Water/ Amino Acids Vancomycin HCl 1 gm/ Device 200 mls @ 166.67 mls/hr 10/29/19 06:00 10/30/19 17:18 IVPB 200 mls 0600,1800 KACI Administration Insulin Human Lispro 0 units 10/21/19 15:27 10/29/19 00:32 Humalog SC 2 unit .MILD SLIDING SCALE PRN Administration Mild Correctional Scale Levofloxacin 750 mg 10/30/19 06:00 10/30/19 05:00 Levofloxacin 750 Mg Tab PO 750 mg 0600 KACI Administration Morphine Sulfate 2 mg 10/27/19 10:42 10/29/19 19:58 Morphine SLOW IVP 2 mg Q2H PRN Administration Mild-Moderate Pain (1-5) Morphine Sulfate 4 mg 10/27/19 13:47 10/30/19 14:12 Morphine SLOW IVP 4 mg Q2H PRN Administration Moderate to Severe Pain (6-10) Sodium Chloride 10 ml 10/21/19 21:00 10/30/19 09:09 Flush - Normal Saline IVF 10 ml Q12HR KACI Administration Sodium Chloride 10 ml 10/21/19 11:07 10/30/19 14:14 Flush - Normal Saline IVF 10 ml PRN PRN Administration Saline Flush - Exam General Appearance: ill appearing Heart: RRR, no gallops Respiratory: no wheezes, no ronchi Respiratory - other findings: Decreased air entry at bases Gastrointestinal: no guarding, no rigidity Extremities: no cyanosis Neurological: no new deficit Musculoskeletal: generalized weakness Psychiatric: normal affect, A&O x 3 Hosp A/P (1) GI bleeding Code(s): K92.2 - GASTROINTESTINAL HEMORRHAGE, UNSPECIFIED Status: Acute (2) Peritonitis Code(s): K65.9 - PERITONITIS, UNSPECIFIED Status: Acute (3) Malnutrition of moderate degree Code(s): E44.0 - MODERATE PROTEIN-CALORIE MALNUTRITION Status: Chronic (4) Small bowel obstruction Code(s): K56.609 - UNSP INTESTNL OBST, UNSP TO PARTIAL VERSUS COMPLETE OBST Status: Acute (5) Hypokalemia Code(s): E87.6 - HYPOKALEMIA Status: Acute (6) Hypernatremia Code(s): E87.0 - HYPEROSMOLALITY AND HYPERNATREMIA Status: Acute (7) Cirrhosis of liver Code(s): K74.60 - UNSPECIFIED CIRRHOSIS OF LIVER Status: Chronic (8) Other issues per previous notes - Plan plan discussed w/ family 10/29 Plan discussed with gastroenterology. There is no active bleeding. Will discontinue octreotide and Protonix drip. Start IV Protonix 40 twice daily. Continue vancomycin, meropenem and Levaquin per infectious disease. Transfer to surgical floor. Continue TPN. Continue n.p.o. until cleared by general surgery. Plan discussed extensively with the patient and spouse at the bedside. DNR verified. Out of hospital DNR form completed and signed. Continue physical therapy. custodial facility referral. 10/28 Continue IV Protonix with octreotide. GI input appreciated. Continue TPN. IV fluids reduced to KVO. Continue antibiotics per infectious disease recheck labs in a.m. DVT prophylaxis with subcu heparin monitor blood sugars. Recheck labs in a.m. Continue supportive measures. Continue physical therapy and occupation therapy
[2019-10-30] MEDS: Pantoprazole 40 MG VIAL IVP SCH (20:22)
[2019-10-30] MEDS: Morphine 2 MG/ML VIAL SLOW IVP PRN (22:13)
[2019-10-30] MEDS: POTASSIUM PHOSPHATE IV SCH (22:49)
[2019-10-30] MEDS: [UNRECOGNIZED DRUG - OTHER] IV SCH (22:49)
[2019-10-30] MEDS: POTASSIUM ACETATE IV SCH (22:49)
[2019-10-30] MEDS: SODIUM ACETATE IV SCH (22:49)
--- NOTE | 2019-10-30 23:14 | PDOC.GSPN ---
Surgery Progress Note: Subj - Subjective Narrative: Patient is feeling okay. He denies any nausea or vomiting since his NG tube was removed yesterday. He states that he has passed a little gas. No bowel movement yet. Abdomen is still quite distended and tender diffusely. Incisions look okay. Bowel sounds are not appreciated. Assessment/plan: Small bowel obstruction status post lysis of adhesions with subsequent peritonitis with no bowel injury, likely due to translocation due to his obstruction. Still awaiting return of bowel function. His NG tube was just removed yesterday and he failed his speech evaluation and is at high risk for aspiration. Keep n.p.o. with TPN for now. Await better bowel function and continue speech therapy and physical therapy. Surgery Progress Note: Obj - Vital signs Vital signs: Vital Signs - Most Recent Temp Pulse Resp BP Pulse Ox 99.2 F 94 18 127/85 96 10/30/19 15:30 10/30/19 15:30 10/30/19 15:30 10/30/19 15:30 10/30/19 20:35 Surgery Progress Note: Results - Labs Result Diagrams: 10/30/19 04:54 10/30/19 04:54 Lab results: Laboratory Results - last 24 hr 10/30/19 10/30/19 12:20 16:54 POC Glucose 138 H 122 H
[2019-10-31] MEDS: MEROPENEM 1 GM/50 ML 1 GM in Premix Bag 1 BAG IVPB SCH ×3 (04:09→20:33)
[2019-10-31] MEDS: Vancomycin 1 GM in Premix Bag 1 BAG IVPB SCH ×2 (05:56→17:04)
[2019-10-31] MEDS: Morphine 2 MG/ML VIAL SLOW IVP PRN ×2 (05:57→14:14)
[2019-10-31 06:25] LABS: #Basophils 0.1 thou/uL (0.0-0.2); #Eosinphils 0.1 thou/uL (0.0-0.7); #Lymphocytes 0.9 thou/uL (1.20-3.40); #Monocytes 0.5 thou/uL (0.11-0.59); #Neutrophils 6.8 thou/uL (1.40-6.50); %Basophils 0.8 % (0.0-1.0); %Lymphocytes 11.1 % (21.0-51.0); %Monocytes 5.9 % (0.0-10.0); %Neutrophils 81.2 % (42.0-75.0); Hemoglobin 9.4 g/dL (14.0-18.0); Mean Corpuscular HGB CONC 31.6 g/dL (32.0-36.0); Mean Corpuscular Hemoglobin 30.4 pg (27.0-31.0); Mean Corpuscular Volume 96.4 fL (78.0-98.0); Mean Platelet Volume 10.8 fL (7.4-10.4); Platelet Count 109 thou/uL (130-400); RBC Distribution Width 13.9 % (11.5-14.5); White Blood Cell (WBC) Count 8.4 thou/uL (4.8-10.8)
[2019-10-31 06:37] LABS: Anion Gap 10 mmol/L (10-20); BUN (Urea Nitrogen) 17 mg/dL (8.4-25.7); Calc. Creatinine Clearance 101 mL/min (70-130); Calcium 7.1 mg/dL (7.8-10.44); Carbon Dioxide 24 mmol/L (23-31); Chloride 108 mmol/L (98-107); Estimated GFR-MDRD Greater than 90; Glucose 139 mg/dL (80-115); Magnesium 1.5 mg/dL (1.6-2.6); Phosphorus 2.8 mg/dL (2.3-4.7); Potassium 4.2 mmol/L (3.5-5.1); Sodium 138 mmol/L (136-145)
--- NOTE | 2019-10-31 08:01 | PRG ---
DATE OF SERVICE: 10/30/2019 SUBJECTIVE: This is a 59-year-old male with history of liver cirrhosis before, hospitalized with abdominal pain, nausea, vomiting. He underwent surgery today for bowel obstruction. He is still n.p.o. He had small amount of blood in the NG tube couple of days ago, but he has had no active bleeding per se. Blood count is fairly stable. The blood count has not really dropped down. It has been around 10.1, dropped to 9.8 yesterday and today 9.4. He has no overt bleeding. He has not had any melena stool. He has no nausea, no vomiting. He and IV Protonix a couple of days ago. He offers no complaints. PHYSICAL EXAMINATION: GENERAL: He is very fragile-looking male, appears comfortable. VITAL SIGNS: Temperature is 99.2 degrees Fahrenheit, pulse is 94, blood pressure 127/85. CARDIOVASCULAR SYSTEM: Normal heart sounds. LUNGS: Clear to auscultation. ABDOMEN: Soft and mildly distended. Abdomen is mildly tender. His bowel sounds are hyperactive. RECOMMENDATIONS: 1. Stop the octreotide. 2. Stop may change it to p.o. Protonix or IV Protonix 40 twice a day. 3. Continue to monitor blood count. Job ID: [id number]
[2019-10-31] MEDS ORDERED: Electrolyte Replacement Protoc 1 EACH EACH IVPB PRN (08:19)
[2019-10-31] MEDS ORDERED: Magnesium 2 GM/50 ML 2 GM in Premix Bag 1 BAG IVPB SCH (08:30)
[2019-10-31] MEDS ORDERED: Magnesium Sulfate 2 GM in Sodium Chloride 0.9% 100 ML IVPB SCH (08:30)
[2019-10-31] MEDS: Sodium Chloride 0.9% (PF) 10 ML VIAL FS PRN ×2 (09:03→20:33)
[2019-10-31] MEDS: Heparin 5,000 UNITS/ML VIAL SC SCH ×2 (09:04→20:32)
[2019-10-31] MEDS: Pantoprazole 40 MG VIAL IVP SCH ×2 (09:04→20:33)
[2019-10-31] MEDS ORDERED: Potassium Phosphate 22 MMOL in Sodium Chloride 0.9% 250 ML 250 ML IVPB SCH (09:15)
[2019-10-31] MEDS: Dextrose 5% w/ 20 mEq KCl 1,000 ML IV SCH (10:29)
--- NOTE | 2019-10-31 10:43 | PDOC.GSPN ---
Surgery Progress Note: Subj - Subjective Narrative: Patient states that he is feeling about the same. He denies any abdominal pain except for when he coughs or moves. He states that he has passed a little gas but has not had a bowel movement. He denies any nausea or vomiting but does feel bloated. Vital signs are okay. Abdomen is still distended and somewhat tympanitic. Diffuse tenderness to palpation. Surface wound VAC is in place with minimal drainage. Bowel sounds are still hypoactive. Assessment/plan: Small bowel obstruction with postoperative peritonitis requiring repeat washout without any bowel injury identified. devulcanizer tender and distended with tympany and diminished bowel sounds. I will obtain a plain film of the abdomen today to see how this looks. We are going to be cautious with advancement of diet as the patient is at high risk for aspiration especially if he develops nausea and vomiting. Continue TPN. Surgery Progress Note: Obj - Vital signs Vital signs: Vital Signs - Most Recent Temp Pulse Resp BP Pulse Ox 97.7 F 92 16 140/91 H 98 10/31/19 07:53 10/31/19 09:59 10/31/19 09:59 10/31/19 07:53 10/31/19 09:59 Surgery Progress Note: Results - Labs Result Diagrams: 10/31/19 06:05 10/31/19 06:05 Lab results: Laboratory Results - last 24 hr 10/31/19 10/31/19 10/31/19 00:39 05:35 06:05 WBC RBC Hgb Hct MCV MCH MCHC RDW Plt Count MPV Neutrophils % Neutrophils % (Manual) Lymphocytes % Monocytes % Eosinophils % Basophils % Neutrophils # Lymphocytes # Monocytes # Eosinophils # Basophils # Sodium 138 Potassium 4.2 Chloride 108 H Carbon Dioxide 24 Anion Gap 10 BUN 17 Creatinine 0.80 Estimated GFR (MDRD) Greater than 90 Glucose 139 H POC Glucose 139 H 123 H Calcium 7.1 L Phosphorus 2.8 Magnesium 1.5 L 10/31/19 06:05 WBC 8.4 RBC 3.10 L Hgb 9.4 L Hct 29.9 L MCV 96.4 MCH 30.4 MCHC 31.6 L RDW 13.9 Plt Count 109 L MPV 10.8 H Neutrophils % 81.2 H Neutrophils % (Manual) Not Reportable Lymphocytes % 11.1 L Monocytes % 5.9 Eosinophils % 1.0 Basophils % 0.8 Neutrophils # 6.8 H Lymphocytes # 0.9 L Monocytes # 0.5 Eosinophils # 0.1 Basophils # 0.1 Sodium Potassium Chloride Carbon Dioxide Anion Gap BUN Creatinine Estimated GFR (MDRD) Glucose POC Glucose Calcium Phosphorus Magnesium
--- NOTE | 2019-10-31 16:06 | RAD ---
EXAM: ABDOMEN TWO VIEWS: 10/31/19 HISTORY: Small bowel obstruction. FINDINGS: This exam includes KUB and a left lateral decubitus. There are recent midline surgical marcos. There are some minimally dilated small bowel loops noted in the mid abdomen but these are certainly less m arked than on a 10/26/19 study. There is a fairly prominent air fluid level in the right upper quadran t, I am not certain as to the exact etiology. This could represent some free intraperitoneal air. Con ceivably this could represent a markedly dilated interposed colon between the right lobe of the liver and the hemidiaphragm. I would suggest consideration for a follow-up abdomen and pelvic CT scan for further assessment. Evidence for a right renal calculus. IMPRESSION: 1. Minimally dilated small bowel loops but less dilatation and distention from a prior CT of 10/12 05/31. 2. Somewhat globular shaped air fluid level in the right upper quadrant possibly some free intr aperitoneal air versus air fluid level within a dilated hepatic flexure of colon interposed between t he liver and the right hemidiaphragm. Consider follow-up abdomen and pelvic CT. Findings were discussed with Michelle, the patient's nurse, who indicated she would contact Dr. Hess in this regard. Code CR POS: OFF
[2019-10-31] MEDS: Morphine 4 MG/ML VIAL SLOW IVP PRN ×2 (18:14→23:06)
--- NOTE | 2019-10-31 19:27 | PDOC.HOSPP ---
- Subjective Encounter Date: 10/31/19 Encounter Time: 19:00 Subjective: Patient seen and examined for multiple medical issues. On TPN. N.p.o. - Objective Vital Signs & Weight: Vital Signs (12 hours) Temp Pulse Resp BP Pulse Ox 10/31/19 16:08 99.9 F H 104 H 18 130/82 96 10/31/19 12:00 98.4 F 97 18 124/78 98 10/31/19 09:59 92 16 98 10/31/19 08:00 98 10/31/19 07:53 97.7 F 96 16 140/91 H 96 Weight Admit Weight 136 lb Weight 170 lb 6.4 oz Most Recent Monitor Data Heart Rate from ECG 102 NIBP 133/85 NIBP BP-Mean 101 Respiration from ECG 24 SpO2 100 I&O: 10/30/19 10/31/19 11/01/19 06:59 06:59 06:59 Intake Total 4883 Output Total 1425 1400 450 Balance 3458 -1400 -450 Result Diagrams: 10/31/19 06:05 10/31/19 06:05 Additional Labs: Accuchecks 10/31/19 10/31/19 10/31/19 17:32 12:04 05:35 POC Glucose 122 H 128 H 123 H 10/31/19 00:39 POC Glucose 139 H Laboratory Tests 10/31/19 06:05 Magnesium 1.5 L Hospitalist ROS - Review of Systems Respiratory: denies: cough, dry, shortness of breath, hemoptysis, SOB with excertion, pleuritic pain, sputum, wheezing, other Cardiovascular: denies: chest pain, palpitations, orthopnea, paroxysmal noc. dyspnea, edema, light headedness, other - Medication Medications: Active Medications Generic Name Dose Route Start Last Admin Trade Name Freq PRN Reason Stop Dose Admin Heparin Sodium (Porcine) 5,000 units 10/21/19 21:00 10/31/19 09:04 Heparin SC 5,000 units BID KACI Administration Folic Acid 1 mg/ Thiamine HCl 51.2 mls @ 102.4 mls/hr 10/22/19 09:00 10/31/19 12:02 100 mg/ Sodium Chloride IV 51.2 mls 0900 KACI Administration As Directed Meropenem 1 gm/ Device 50 mls @ 100 mls/hr 10/26/19 20:00 10/31/19 12:02 IVPB 50 mls 0400,1200,2000 KACI Administration Sodium Acetate 35 meq/ 1,917.6297 mls @ 79.901 mls/hr 10/28/19 22:00 10/30/19 22:49 Potassium Phosphate 20 mmol/ IV 1,917.6297 mls Potassium Acetate 60 meq/ 2200 KACI Administration Magnesium Sulfate 10 meq/ Multivitamins 10 ml/ Chromium/ Copper/Manganese/Seleni/Zn 1 ml/ Fat Emulsion Intravenous 250 ml/ Dextrose/Water/ Sterile Water/ Amino Acids Vancomycin HCl 1 gm/ Device 200 mls @ 166.67 mls/hr 10/29/19 06:00 10/31/19 17:04 IVPB 200 mls 0600,1800 KACI Administration Potassium Chloride/Dextrose 1,000 mls @ 0 mls/hr 10/29/19 16:36 10/31/19 10:29 D5w W/ 20 Meq Kcl IV 1,000 mls .Q0M KACI Administration KVO Levofloxacin 750 mg/ Device 150 mls @ 100 mls/hr 10/31/19 09:00 10/31/19 09:03 IVPB 150 mls Q24HR KACI Administration Insulin Human Lispro 0 units 10/21/19 15:27 10/29/19 00:32 Humalog SC 2 unit .MILD SLIDING SCALE PRN Administration Mild Correctional Scale Morphine Sulfate 2 mg 10/27/19 10:42 10/31/19 14:14 Morphine SLOW IVP 2 mg Q2H PRN Administration Mild-Moderate Pain (1-5) Morphine Sulfate 4 mg 10/27/19 13:47 10/31/19 18:14 Morphine SLOW IVP 4 mg Q2H PRN Administration Moderate to Severe Pain (6-10) Pantoprazole Sodium 40 mg 10/30/19 21:00 10/31/19 09:04 Pantoprazole 40 Mg Vial IVP 40 mg Q12HR KACI Administration Sodium Chloride 10 ml 10/21/19 21:00 10/31/19 11:03 Flush - Normal Saline IVF 10 ml Q12HR KACI Administration Sodium Chloride 10 ml 10/21/19 11:07 10/31/19 05:57 Flush - Normal Saline IVF 10 ml PRN PRN Administration Saline Flush Sodium Chloride 10 ml 10/27/19 12:10/31/19 09:03 Normal Saline Pf FS 10 ml PRN PRN Administration RECONSTITUTION - Exam General Appearance: ill appearing Neck: supple, no JVD Heart: RRR, no gallops Respiratory: no wheezes, no ronchi Gastrointestinal: soft, non-tender, normal bowel sounds Extremities: no cyanosis Hosp A/P (1) GI bleeding Code(s): K92.2 - GASTROINTESTINAL HEMORRHAGE, UNSPECIFIED Status: Acute (2) Peritonitis Code(s): K65.9 - PERITONITIS, UNSPECIFIED Status: Acute (3) Malnutrition of moderate degree Code(s): E44.0 - MODERATE PROTEIN-CALORIE MALNUTRITION Status: Chronic (4) Small bowel obstruction Code(s): K56.609 - UNSP INTESTNL OBST, UNSP TO PARTIAL VERSUS COMPLETE OBST Status: Acute (5) Hypokalemia Code(s): E87.6 - HYPOKALEMIA Status: Acute (6) Hypernatremia Code(s): E87.0 - HYPEROSMOLALITY AND HYPERNATREMIA Status: Acute (7) Cirrhosis of liver Code(s): K74.60 - UNSPECIFIED CIRRHOSIS OF LIVER Status: Chronic (8) Hypomagnesemia Code(s): E83.42 - HYPOMAGNESEMIA Status: Acute (9) Other issues per previous notes - Plan DVT proph w/SCDs 10/30 Continue TPN. Continue Levaquin with vancomycin and meropenem per infectious disease. Monitor vancomycin level. Continue IV PPIs. DVT prophylaxis with subcu heparin. Replace magnesium. Recheck labs in a.m. Patient is n.p.o. due to ileus 10/29 Plan discussed with gastroenterology. There is no active bleeding. Will discontinue octreotide and Protonix drip. Start IV Protonix 40 twice daily. Co ntinue vancomycin, meropenem and Levaquin per infectious disease. Transfer to surgical floor. Continue TPN. Continue n.p.o. until cleared by general surgery. Plan discussed extensively with the patient and spouse at the bedside. DNR verified. Out of hospital DNR form completed and signed. Continue physical therapy. correction facility referral. 10/28 Continue IV Protonix with octreotide. GI input appreciated. Continue TPN. IV fluids reduced to KVO. Continue antibiotics per infectious disease recheck labs in a.m. DVT prophylaxis with subcu heparin monitor blood sugars. Recheck labs in a.m. Continue supportive measures. Continue physical therapy and occupation therapy
[2019-10-31] MEDS: POTASSIUM ACETATE IV SCH (22:57)
[2019-10-31] MEDS: SODIUM ACETATE IV SCH (22:57)
[2019-10-31] MEDS: [UNRECOGNIZED DRUG - OTHER] IV SCH (22:57)
[2019-10-31] MEDS: POTASSIUM PHOSPHATE IV SCH (22:57)
[2019-11-01] MEDS: MEROPENEM 1 GM/50 ML 1 GM in Premix Bag 1 BAG IVPB SCH ×3 (04:32→20:06)
[2019-11-01] MEDS: Morphine 2 MG/ML VIAL SLOW IVP PRN (04:32)
[2019-11-01 04:46] LABS: #Eosinphils 0.1 thou/uL (0.0-0.7); #Lymphocytes 1.4 thou/uL (1.20-3.40); #Monocytes 0.7 thou/uL (0.11-0.59); %Basophils 0.1 % (0.0-1.0); %Eosinophils 1.6 % (0.0-10.0); %Neutrophils 73.4 % (42.0-75.0); Hemoglobin 9.8 g/dL (14.0-18.0); Mean Corpuscular HGB CONC 31.6 g/dL (32.0-36.0); Mean Corpuscular Hemoglobin 30.1 pg (27.0-31.0); Mean Corpuscular Volume 95.2 fL (78.0-98.0); Mean Platelet Volume 10.9 fL (7.4-10.4); Platelet Count 113 thou/uL (130-400); RBC Distribution Width 14.7 % (11.5-14.5); Red Blood Cell (RBC) Count 3.24 mill/uL (4.70-6.10); White Blood Cell (WBC) Count 8.2 thou/uL (4.8-10.8)
[2019-11-01 05:09] LABS: Anion Gap 11 mmol/L (10-20); BUN (Urea Nitrogen) 15 mg/dL (8.4-25.7); Calc. Creatinine Clearance 115 mL/min (70-130); Calcium 7.2 mg/dL (7.8-10.44); Carbon Dioxide 23 mmol/L (23-31); Chloride 103 mmol/L (98-107); Estimated GFR-MDRD Greater than 90; Glucose 112 mg/dL (80-115); Magnesium 1.5 mg/dL (1.6-2.6); Phosphorus 3.3 mg/dL (2.3-4.7); Potassium 4.2 mmol/L (3.5-5.1); Sodium 133 mmol/L (136-145)
[2019-11-01] MEDS ORDERED: Magnesium 2 GM/50 ML 2 GM in Premix Bag 1 BAG IVPB SCH (06:30)
[2019-11-01] MEDS: Vancomycin 1 GM in Premix Bag 1 BAG IVPB SCH ×2 (06:45→17:36)
[2019-11-01] MEDS: Pantoprazole 40 MG VIAL IVP SCH ×2 (09:48→20:57)
[2019-11-01] MEDS: Heparin 5,000 UNITS/ML VIAL SC SCH ×2 (09:48→20:56)
[2019-11-01] MEDS: Morphine 4 MG/ML VIAL SLOW IVP PRN ×3 (10:59→20:05)
--- NOTE | 2019-11-01 11:19 | PDOC.HOSPP ---
- Subjective Encounter Date: 11/01/19 Encounter Time: 11:00 Subjective: Patient denies any new complaints at this time. Passing minimal gas. No abdominal pain except for during movements. Some nausea reported. - Objective Vital Signs & Weight: Vital Signs (12 hours) Temp Pulse Resp BP Pulse Ox 11/01/19 07:14 97.9 F 101 H 16 130/92 H 96 11/01/19 04:00 99.4 F 98 16 129/73 96 11/01/19 02:05 97.4 F L 11/01/19 00:00 100.3 F H 101 H 16 127/76 95 Weight Admit Weight 136 lb Weight 165 lb Most Recent Monitor Data Heart Rate from ECG 102 NIBP 133/85 NIBP BP-Mean 101 Respiration from ECG 24 SpO2 100 I&O: 10/31/19 11/01/19 11/02/19 06:59 06:59 06:59 Output Total 4648 061 8768 Balance -1400 -450 -1800 Result Diagrams: 11/01/19 04:34 11/01/19 04:34 Additional Labs: Accuchecks 11/01/19 11/01/19 10/31/19 05:33 00:26 17:32 POC Glucose 122 H 120 H 122 H 10/31/19 12:04 POC Glucose 128 H Radiology Reviewed by me: Yes (Gregor) Hospitalist ROS - Review of Systems Respiratory: denies: cough, dry, shortness of breath, hemoptysis, SOB with excertion, pleuritic pain, sputum, wheezing, other Cardiovascular: denies: chest pain, palpitations, orthopnea, paroxysmal noc. dyspnea, edema, light headedness, other - Medication Medications: Active Medications Generic Name Dose Route Start Last Admin Trade Name Freq PRN Reason Stop Dose Admin Heparin Sodium (Porcine) 5,000 units 10/21/19 21:00 11/01/19 09:48 Heparin SC 5,000 units BID KACI Administration Folic Acid 1 mg/ Thiamine HCl 51.2 mls @ 102.4 mls/hr 10/22/19 09:00 11/01/19 09:48 100 mg/ Sodium Chloride IV 51.2 mls 0900 KACI Administration As Directed Meropenem 1 gm/ Device 50 mls @ 100 mls/hr 10/26/19 20:00 11/01/19 04:32 IVPB 50 mls 0400,1200,2000 KACI Administration Sodium Acetate 35 meq/ 1,917.6297 mls @ 79.901 mls/hr 10/28/19 22:00 10/31/19 22:57 Potassium Phosphate 20 mmol/ IV 1,917.6297 mls Potassium Acetate 60 meq/ 2200 KACI Administration Magnesium Sulfate 10 meq/ Multivitamins 10 ml/ Chromium/ Copper/Manganese/Seleni/Zn 1 ml/ Fat Emulsion Intravenous 250 ml/ Dextrose/Water/ Sterile Water/ Amino Acids Vancomycin HCl 1 gm/ Device 200 mls @ 166.67 mls/hr 10/29/19 06:00 11/01/19 06:45 IVPB 200 mls 0600,1800 KACI Administration Potassium Chloride/Dextrose 1,000 mls @ 0 mls/hr 10/29/19 16:36 10/31/19 10:29 D5w W/ 20 Meq Kcl IV 1,000 mls .Q0M KACI Administration KVO Levofloxacin 750 mg/ Device 150 mls @ 100 mls/hr 10/31/19 09:00 11/01/19 09:48 IVPB 150 mls Q24HR KACI Administration Insulin Human Lispro 0 units 10/21/19 15:27 10/29/19 00:32 Humalog SC 2 unit .MILD SLIDING SCALE PRN Administration Mild Correctional Scale Morphine Sulfate 2 mg 10/27/19 10:42 11/01/19 04:32 Morphine SLOW IVP 2 mg Q2H PRN Administration Mild-Moderate Pain (1-5) Morphine Sulfate 4 mg 10/27/19 13:47 11/01/19 10:59 Morphine SLOW IVP 4 mg Q2H PRN Administration Moderate to Severe Pain (6-10) Pantoprazole Sodium 40 mg 10/30/19 21:00 11/01/19 09:48 Pantoprazole 40 Mg Vial IVP 40 mg Q12HR KACI Administration Sodium Chloride 10 ml 10/21/19 21:00 11/01/19 09:48 Flush - Normal Saline IVF 10 ml Q12HR KACI Administration Sodium Chloride 10 ml 10/21/19 11:07 10/31/19 05:57 Flush - Normal Saline IVF 10 ml PRN PRN Administration Saline Flush Sodium Chloride 10 ml 10/27/19 12:06 10/31/19 20:33 Normal Saline Pf FS 10 ml PRN PRN Administration RECONSTITUTION - Exam General Appearance: ill appearing Neck: supple Heart: RRR, no gallops Respiratory: no rales, no ronchi Gastrointestinal: soft, no guarding, no rigidity Gastrointestinal - other findings: Mild generalized tenderness Extremities: 1+ LE edema Neurological: no new deficit Hosp A/P (1) Peritonitis Code(s): K65.9 - PERITONITIS, UNSPECIFIED Status: Acute (2) GI bleeding Code(s): K92.2 - GASTROINTESTINAL HEMORRHAGE, UNSPECIFIED Status: Acute (3) Malnutrition of moderate degree Code(s): E44.0 - MODERATE PROTEIN-CALORIE MALNUTRITION Status: Chronic (4) Small bowel obstruction Code(s): K56.609 - UNSP INTESTNL OBST, UNSP TO PARTIAL VERSUS COMPLETE OBST Status: Acute (5) Hypokalemia Code(s): E87.6 - HYPOKALEMIA Status: Acute (6) Hypernatremia Code(s): E87.0 - HYPEROSMOLALITY AND HYPERNATREMIA Status: Acute (7) Cirrhosis of liver Code(s): K74.60 - UNSPECIFIED CIRRHOSIS OF LIVER Status: Chronic (8) Hypomagnesemia Code(s): E83.42 - HYPOMAGNESEMIA Status: Acute (9) Other issues per previous notes - Plan DVT proph w/SCDs 10/31 Continue TPN. Replace magnesium. Continue IV vancomycin with meropenem and Levaquin per infectious disease. Barium swallow per general surgery. Continue other medications as above. DVT and GI prophylaxis. Recheck labs in a.m. 10/30 Continue TPN. Continue Levaquin with vancomycin and meropenem per infectious disease. Monitor vancomycin level. Continue IV PPIs. DVT prophylaxis with subcu heparin. Replace magnesium. Recheck labs in a.m. Patient is n.p.o. due to ileus 10/29 Plan discussed with gastroenterology. There is no active bleeding. Will discontinue octreotide and Protonix drip. Start IV Protonix 40 twice daily. Continue vancomycin, meropenem and Levaquin per infectious disease. Transfer to surgical floor. Continue TPN. Continue n.p.o. until cleared by general surgery. Plan discussed extensively with the patient and spouse at the bedside. DNR verified. Out of hospital DNR form completed and signed. Continue physical therapy. prison facility referral. 10/28 Continue IV Protonix with octreotide. GI input appreciated. Continue TPN. IV fluids reduced to KVO. Continue antibiotics per infectious disease recheck labs in a.m. DVT prophylaxis with subcu heparin monitor blood sugars. Recheck labs in a.m. Continue supportive measures. Continue physical therapy and occupation therapy
--- NOTE | 2019-11-01 13:57 | RAD ---
EXAM: XR Ba Swallow W/Speech Therap PROVIDED CLINICAL HISTORY: Dysphagia, unspecified. Feeding difficulties. COMPARISON: None FINDINGS: This examination was performed in conjunction with speech pathology. Thin and semisolid barium consis tencies were administered during the exam. The patient demonstrated episodes of penetration with thin liquid barium and nectar consistency barium. No sara aspiration was demonstrated during the exa m. A 12.5 mm barium tablet was administered with nectar consistency barium, and the tablet traversed the oropharynx and upper visualized esophagus without difficulty. IMPRESSION: Episodes of penetration without evidence of aspiration.
[2019-11-01] MEDS ORDERED: Aluminum & Magnesium Hydroxide 60 ML, Lidocaine 2% Viscous Solution 30 ML, diphenhydrAM... SSW PRN (14:14)
--- NOTE | 2019-11-01 14:52 | PDOC.GSPN ---
Surgery Progress Note: Subj - Subjective Narrative: Patient is feeling okay. He denies any nausea or abdominal pain but is photographer still to palpation. He says he has passed a little bit of gas. No bowel movement yet. Abdominal film yesterday showed air-fluid levels and some dilated loops of bowel. He had what looked like a loop of colon off over his liver. Free air could not be ruled out but certainly he does not have peritonitis on examination and even if he does have free air this could be from his recent surgery. His abdomen is still quite distended and his bowel sounds are still diminished. Assessment/plan: Small bowel obstruction status post lysis of adhesions and later takeback for washout for peritonitis without any bowel injury found. Still with profound ileus. Also concern for aspiration. I ordered a modified barium swallow today which showed some penetration but no sara aspiration. Sp eech and language therapy has recommended pured textures and nectar thick liquids. And when to start him on nectar thick clear liquids only and see how he tolerates this. There is also concern for oropharyngeal thrush so I wrote for some Diflucan. I am concerned that he would aspirate the nystatin swish and swallow. Continue TPN and other medical management. Surgery Progress Note: Obj - Vital signs Vital signs: Vital Signs - Most Recent Temp Pulse Resp BP Pulse Ox 98.3 F 107 H 16 122/90 97 11/01/19 11:29 11/01/19 11:29 11/01/19 11:29 11/01/19 11:29 11/01/19 11:29 Surgery Progress Note: Results - Labs Result Diagrams: 11/01/19 04:34 11/01/19 04:34 Lab results: Laboratory Results - last 24 hr 11/01/19 11/01/19 11/01/19 04:33 04:34 04:34 WBC 8.2 RBC 3.24 L Hgb 9.8 L Hct 30.8 L MCV 95.2 MCH 30.1 MCHC 31.6 L RDW 14.7 H Plt Count 113 L MPV 10.9 H Neutrophils % 73.4 Neutrophils % (Manual) Not Reportable Lymphocytes % 17.0 L Monocytes % 8.0 Eosinophils % 1.6 Basophils % 0.1 Neutrophils # 6.0 Lymphocytes # 1.4 Monocytes # 0.7 H Eosinophils # 0.1 Basophils # 0.0 Sodium 133 L Potassium 4.2 Chloride 103 Carbon Dioxide 23 Anion Gap 11 BUN 15 Creatinine 0.74 Estimated GFR (MDRD) Greater than 90 Glucose 112 POC Glucose Calcium 7.2 L Phosphorus 3.3 Magnesium 1.5 L Vancomycin Trough 15.0 11/01/19 11/01/19 05:33 11:38 WBC RBC Hgb Hct MCV MCH MCHC RDW Plt Count MPV Neutrophils % Neutrophils % (Manual) Lymphocytes % Monocytes % Eosinophils % Basophils % Neutrophils # Lymphocytes # Monocytes # Eosinophils # Basophils # Sodium Potassium Chloride Carbon Dioxide Anion Gap BUN Creatinine Estimated GFR (MDRD) Glucose POC Glucose 122 H 108 H Calcium Phosphorus Magnesium Vancomycin Trough
[2019-11-01] MEDS ORDERED: Fluconazole In NaCl,Iso-Osm 100 MG in Premix Bag 1 BAG IVPB SCH (15:00)
[2019-11-01] MEDS ORDERED: Fluconazole In NaCl,Iso-Osm 100 MG, Admixture Fee 1 EACH in Premix Bag 1 BAG IVPB SCH ×2 (15:15→15:30)
[2019-11-01] MEDS: Nystatin 500,000 UNITS/5 ML UDCUP SSW SCH ×2 (17:37→20:57)
[2019-11-01] MEDS: POTASSIUM ACETATE IV SCH (22:17)
[2019-11-01] MEDS: SODIUM ACETATE IV SCH (22:17)
[2019-11-01] MEDS: [UNRECOGNIZED DRUG - OTHER] IV SCH (22:17)
[2019-11-01] MEDS: POTASSIUM PHOSPHATE IV SCH (22:17)
[2019-11-02] MEDS: Morphine 4 MG/ML VIAL SLOW IVP PRN ×4 (00:27→21:03)
[2019-11-02] MEDS: MEROPENEM 1 GM/50 ML 1 GM in Premix Bag 1 BAG IVPB SCH ×3 (03:19→20:52)
[2019-11-02 04:30] LABS: #Eosinphils 0.1 thou/uL (0.0-0.7); #Lymphocytes 1.4 thou/uL (1.20-3.40); #Monocytes 0.9 thou/uL (0.11-0.59); #Neutrophils 4.4 thou/uL (1.40-6.50); %Basophils 0.2 % (0.0-1.0); %Lymphocytes 20.4 % (21.0-51.0); %Monocytes 13.6 % (0.0-10.0); %Neutrophils 64.8 % (42.0-75.0); Mean Corpuscular Hemoglobin 31.5 pg (27.0-31.0); Mean Corpuscular Volume 95.3 fL (78.0-98.0); Mean Platelet Volume 10.6 fL (7.4-10.4); Platelet Count 107 thou/uL (130-400); RBC Distribution Width 15.1 % (11.5-14.5); Red Blood Cell (RBC) Count 2.85 mill/uL (4.70-6.10); White Blood Cell (WBC) Count 6.8 thou/uL (4.8-10.8)
[2019-11-02 04:39] LABS: Anion Gap 12 mmol/L (10-20); BUN (Urea Nitrogen) 16 mg/dL (8.4-25.7); Calc. Creatinine Clearance 119 mL/min (70-130); Calcium 7.1 mg/dL (7.8-10.44); Carbon Dioxide 24 mmol/L (23-31); Chloride 102 mmol/L (98-107); Estimated GFR-MDRD Greater than 90; Glucose 78 mg/dL (80-115); Magnesium 1.6 mg/dL (1.6-2.6); Potassium 3.7 mmol/L (3.5-5.1); Sodium 134 mmol/L (136-145)
[2019-11-02] MEDS ORDERED: Magnesium 2 GM/50 ML 2 GM in Premix Bag 1 BAG IVPB SCH (05:30)
[2019-11-02] MEDS: Vancomycin 1 GM in Premix Bag 1 BAG IVPB SCH ×2 (05:33→17:31)
[2019-11-02 06:10] LABS: Phosphorus 3.1 mg/dL (2.3-4.7)
[2019-11-02] MEDS: Pantoprazole 40 MG VIAL IVP SCH ×2 (09:11→20:53)
[2019-11-02] MEDS: Heparin 5,000 UNITS/ML VIAL SC SCH ×2 (09:11→20:53)
[2019-11-02] MEDS: Nystatin 500,000 UNITS/5 ML UDCUP SSW SCH ×4 (09:13→20:53)
[2019-11-02] MEDS: Dextrose 5% w/ 20 mEq KCl 1,000 ML IV SCH (09:32)
--- NOTE | 2019-11-02 11:42 | PDOC.HOSPP ---
- Subjective Encounter Date: 11/02/19 Encounter Time: 11:38 Subjective: no specific complaints, on TPN, see environmental protection geologist note - Objective Vital Signs & Weight: Vital Signs (12 hours) Temp Pulse Resp BP Pulse Ox 11/02/19 08:58 99 11/02/19 08:14 98.4 F 96 12 120/77 99 11/02/19 03:20 98.6 F 99 20 134/88 98 11/02/19 00:19 98.8 F 101 H 20 148/88 H 97 Weight Admit Weight 136 lb Weight 165 lb Most Recent Monitor Data Heart Rate from ECG 102 NIBP 133/85 NIBP BP-Mean 101 Respiration from ECG 24 SpO2 100 I&O: 11/01/19 11/02/19 11/03/19 06:59 06:59 06:59 Intake Total 1998.85 Output Total 450 4375 Balance -450 -2376.15 Result Diagrams: 11/02/19 04:05 11/02/19 04:05 Additional Labs: Accuchecks 11/02/19 11/02/19 11/01/19 05:46 00:37 17:23 POC Glucose 118 H 122 H 118 H 11/01/19 11:38 POC Glucose 108 H Hospitalist ROS - Medication Medications: Active Medications Generic Name Dose Route Start Last Admin Trade Name Freq PRN Reason Stop Dose Admin Heparin Sodium (Porcine) 5,000 units 10/21/19 21:00 11/02/19 09:11 Heparin SC 5,000 units BID KACI Administration Folic Acid 1 mg/ Thiamine HCl 51.2 mls @ 102.4 mls/hr 10/22/19 09:00 11/02/19 09:11 100 mg/ Sodium Chloride IV 51.2 mls 0900 KACI Administration As Directed Meropenem 1 gm/ Device 50 mls @ 100 mls/hr 10/26/19 20:00 11/02/19 03:19 IVPB 50 mls 0400,1200,2000 KACI Administration Sodium Acetate 35 meq/ 1,917.6297 mls @ 79.901 mls/hr 10/28/19 22:00 11/01/19 22:17 Potassium Phosphate 20 mmol/ IV 1,917.6297 mls Potassium Acetate 60 meq/ 2200 KACI Administration Magnesium Sulfate 10 meq/ Multivitamins 10 ml/ Chromium/ Copper/Manganese/Seleni/Zn 1 ml/ Fat Emulsion Intravenous 250 ml/ Dextrose/Water/ Sterile Water/ Amino Acids Vancomycin HCl 1 gm/ Device 200 mls @ 166.67 mls/hr 10/29/19 06:00 11/02/19 05:33 IVPB 200 mls 0600,1800 KACI Administration Potassium Chloride/Dextrose 1,000 mls @ 0 mls/hr 10/29/19 16:36 11/02/19 09:32 D5w W/ 20 Meq Kcl IV 1,000 mls .Q0M KACI Administration KVO Levofloxacin 750 mg/ Device 150 mls @ 100 mls/hr 10/31/19 09:00 11/02/19 09:11 IVPB 150 mls Q24HR KACI Administration Insulin Human Lispro 0 units 10/21/19 15:27 10/29/19 00:32 Humalog SC 2 unit .MILD SLIDING SCALE PRN Administration Mild Correctional Scale Morphine Sulfate 2 mg 10/27/19 10:42 11/01/19 04:32 Morphine SLOW IVP 2 mg Q2H PRN Administration Mild-Moderate Pain (1-5) Morphine Sulfate 4 mg 10/27/19 13:47 11/02/19 07:12 Morphine SLOW IVP 4 mg Q2H PRN Administration Moderate to Severe Pain (6-10) Nystatin 500,000 units 11/01/19 17:00 11/02/19 09:13 Nystatin 500,000 Units/5 Ml Udcup SSW 500,000 units QID KACI Administration Pantoprazole Sodium 40 mg 10/30/19 21:00 11/02/19 09:11 Pantoprazole 40 Mg Vial IVP 40 mg Q12HR KACI Administration Sodium Chloride 10 ml 10/21/19 21:00 11/02/19 09:15 Flush - Normal Saline IVF 10 ml Q12HR KACI Administration Sodium Chloride 10 ml 10/21/19 11:07 10/31/19 05:57 Flush - Normal Saline IVF 10 ml PRN PRN Administration Saline Flush Sodium Chloride 10 ml 10/27/19 12:06 10/31/19 20:33 Normal Saline Pf FS 10 ml PRN PRN Administration RECONSTITUTION - Exam General Appearance: awake alert Neck: no JVD Heart: RRR, no murmur Respiratory: CTAB Gastrointestinal: soft, normal bowel sounds, distended Extremities: no edema Hosp A/P (1) Ascites Code(s): R18.8 - OTHER ASCITES Status: Acute Qualifiers: Ascites type: due to alcoholic cirrhosis Qualified Code(s): K70.31 - Alcoholic cirrhosis of liver with ascites (2) Coagulopathy Status: Chronic (3) Small bowel obstruction Code(s): K56.609 - UNSP INTESTNL OBST, UNSP TO PARTIAL VERSUS COMPLETE OBST Status: Acute (4) Cirrhosis of liver Code(s): K74.60 - UNSPECIFIED CIRRHOSIS OF LIVER Status: Chronic Qualifiers: Ascites presence: with ascites (5) Malnutrition of moderate degree Code(s): E44.0 - MODERATE PROTEIN-CALORIE MALNUTRITION Status: Chronic (6) Peritonitis Code(s): K65.9 - PERITONITIS, UNSPECIFIED Status: Acute - Plan on TPN question of hospice expectant observation on iv antibx for peritonitis
--- NOTE | 2019-11-02 16:11 | PRG ---
DATE OF SERVICE: 11/02/2019 SUBJECTIVE: Pio Rooney is doing well today. He is tolerating his TPN. He has been started on special liquids based on speech and swallowing studies. He has not had any nausea or vomiting. He reports passing flatus and now significant bowel movements today. He has bowel sounds present. OBJECTIVE: LUNGS: Clear to auscultation. CARDIAC: Regular rate and rhythm. No murmur or gallop. ABDOMEN: Slightly protuberant, slightly tympanitic, and nontender. Midline wound looks good. MIL was removed. LABORATORY DATA: White count 6 and hemoglobin 9. Basic metabolic profile is normal. BUN and creatinine are normal. ASSESSMENT/PLAN: 1. Acute kidney injury, resolved. 2. Malnutrition. Continue TPN. 3. Cirrhosis. 4. Secondary peritonitis with positive culture and peritoneal fluid. Antibiotics per Dr. Corona. 5. DNR status. 6. Deconditioning. Continue physical therapy efforts. 7. Ileus, slowly resolving. We would continue liquids today. We will advance his diet tomorrow pending speech swallowing study. Job ID: [id number]
[2019-11-02] MEDS: Fluconazole In NaCl,Iso-Osm 100 MG, Admixture Fee 1 EACH in Premix Bag 1 BAG IVPB SCH (16:40)
[2019-11-02] MEDS: [UNRECOGNIZED DRUG - OTHER] IV SCH (22:23)
[2019-11-02] MEDS: POTASSIUM ACETATE IV SCH (22:23)
[2019-11-02] MEDS: POTASSIUM PHOSPHATE IV SCH (22:23)
[2019-11-02] MEDS: SODIUM ACETATE IV SCH (22:23)
[2019-11-03] MEDS: MEROPENEM 1 GM/50 ML 1 GM in Premix Bag 1 BAG IVPB SCH ×3 (03:10→20:03)
[2019-11-03] MEDS: Morphine 4 MG/ML VIAL SLOW IVP PRN (03:11)
[2019-11-03 04:06] LABS: #Eosinphils 0.1 thou/uL (0.0-0.7); #Lymphocytes 1.3 thou/uL (1.20-3.40); #Monocytes 0.9 thou/uL (0.11-0.59); #Neutrophils 4.4 thou/uL (1.40-6.50); %Basophils 0.1 % (0.0-1.0); %Eosinophils 1.1 % (0.0-10.0); %Lymphocytes 19.9 % (21.0-51.0); %Monocytes 12.9 % (0.0-10.0); %Neutrophils 66.1 % (42.0-75.0); Mean Corpuscular HGB CONC 33.1 g/dL (32.0-36.0); Mean Corpuscular Hemoglobin 31.8 pg (27.0-31.0); Mean Corpuscular Volume 95.9 fL (78.0-98.0); Platelet Count 113 thou/uL (130-400); RBC Distribution Width 15.8 % (11.5-14.5); Red Blood Cell (RBC) Count 2.82 mill/uL (4.70-6.10); White Blood Cell (WBC) Count 6.7 thou/uL (4.8-10.8)
[2019-11-03 04:11] LABS: Phosphorus 2.9 mg/dL (2.3-4.7)
[2019-11-03 04:13] LABS: Anion Gap 9 mmol/L (10-20); BUN (Urea Nitrogen) 14 mg/dL (8.4-25.7); Calc. Creatinine Clearance 137 mL/min (70-130); Calcium 7.2 mg/dL (7.8-10.44); Carbon Dioxide 25 mmol/L (23-31); Chloride 102 mmol/L (98-107); Estimated GFR-MDRD Greater than 90; Glucose 85 mg/dL (80-115); Magnesium 1.5 mg/dL (1.6-2.6); Potassium 3.4 mmol/L (3.5-5.1); Sodium 133 mmol/L (136-145)
[2019-11-03] MEDS ORDERED: Magnesium 2 GM/50 ML 2 GM in Premix Bag 1 BAG IVPB SCH (05:30)
[2019-11-03] MEDS ORDERED: Potassium Chloride 40 MEQ in Sodium Chloride 0.9% 250 ML 250 ML IVPB SCH (05:30)
[2019-11-03] MEDS: Morphine 2 MG/ML VIAL SLOW IVP PRN ×2 (06:43→10:51)
[2019-11-03] MEDS: Vancomycin 1 GM in Premix Bag 1 BAG IVPB SCH (06:45)
[2019-11-03] MEDS ORDERED: Potassium Chloride 40 MEQ in Premix Bag 1 BAG IVPB SCH (09:00)
[2019-11-03] MEDS: Heparin 5,000 UNITS/ML VIAL SC SCH ×2 (10:48→20:03)
[2019-11-03] MEDS: Nystatin 500,000 UNITS/5 ML UDCUP SSW SCH ×4 (10:48→20:03)
[2019-11-03] MEDS: Pantoprazole 40 MG VIAL IVP SCH (10:48)
--- NOTE | 2019-11-03 11:50 | PDOC.HOSPP ---
- Subjective Encounter Date: 11/03/19 Encounter Time: 11:46 Subjective: " I've had 2 or 3 bowel movents today" - Objective Vital Signs & Weight: Vital Signs (12 hours) Temp Pulse Resp BP Pulse Ox 11/03/19 08:15 99.2 F 100 16 128/83 98 11/03/19 02:56 99.3 F 102 H 16 126/83 97 Weight Admit Weight 136 lb Weight 165 lb Most Recent Monitor Data Heart Rate from ECG 102 NIBP 133/85 NIBP BP-Mean 101 Respiration from ECG 24 SpO2 100 I&O: 11/02/19 11/03/19 11/04/19 06:59 06:59 06:59 Intake Total 2957.85 3466 Output Total 4375 2725 Balance -1417.15 741 Result Diagrams: 11/03/19 03:43 11/03/19 03:43 Additional Labs: Accuchecks 11/03/19 11/03/19 11/02/19 11:02 05:09 23:20 POC Glucose 105 H 120 H 124 H 11/02/19 11/02/19 10/30/19 17:58 12:30 20:44 POC Glucose 124 H 78 134 H Hospitalist ROS - Medication Medications: Active Medications Generic Name Dose Route Start Last Admin Trade Name Freq PRN Reason Stop Dose Admin Heparin Sodium (Porcine) 5,000 units 10/21/19 21:00 11/03/19 10:48 Heparin SC 5,000 units BID KACI Administration Folic Acid 1 mg/ Thiamine HCl 51.2 mls @ 102.4 mls/hr 10/22/19 09:00 11/03/19 10:48 100 mg/ Sodium Chloride IV 51.2 mls 0900 KACI Administration As Directed Meropenem 1 gm/ Device 50 mls @ 100 mls/hr 10/26/19 20:00 11/03/19 03:10 IVPB 50 mls 0400,1200,2000 KACI Administration Sodium Acetate 35 meq/ 1,917.6297 mls @ 79.901 mls/hr 10/28/19 22:00 11/02/19 22:23 Potassium Phosphate 20 mmol/ IV 1,917.6297 mls Potassium Acetate 60 meq/ 2200 KACI Administration Magnesium Sulfate 10 meq/ Multivitamins 10 ml/ Chromium/ Copper/Manganese/Seleni/Zn 1 ml/ Fat Emulsion Intravenous 250 ml/ Dextrose/Water/ Sterile Water/ Amino Acids Vancomycin HCl 1 gm/ Device 200 mls @ 166.67 mls/hr 10/29/19 06:00 11/03/19 06:45 IVPB 200 mls 0600,1800 KACI Administration Potassium Chloride/Dextrose 1,000 mls @ 0 mls/hr 10/29/19 16:36 11/02/19 09:32 D5w W/ 20 Meq Kcl IV 1,000 mls .Q0M KACI Administration KVO Levofloxacin 750 mg/ Device 150 mls @ 100 mls/hr 10/31/19 09:00 11/02/19 09:11 IVPB 150 mls Q24HR KACI Administration Fluconazole/Sodium Chloride 50 mls @ 100 mls/hr 11/02/19 15:00 11/02/19 16:40 100 mg/ Miscellaneous IVPB 11/04/19 17:00 50 mls Medication 1 each/ Device Q24HR KACI Administration Insulin Human Lispro 0 units 10/21/19 15:27 10/29/19 00:32 Humalog SC 2 unit .MILD SLIDING SCALE PRN Administration Mild Correctional Scale Morphine Sulfate 2 mg 10/27/19 10:42 11/03/19 10:51 Morphine SLOW IVP 2 mg Q2H PRN Administration Mild-Moderate Pain (1-5) Morphine Sulfate 4 mg 10/27/19 13:47 11/03/19 03:11 Morphine SLOW IVP 4 mg Q2H PRN Administration Moderate to Severe Pain (6-10) Nystatin 500,000 units 11/01/19 17:00 11/03/19 10:48 Nystatin 500,000 Units/5 Ml Udcup SSW 500,000 units QID KACI Administration Pantoprazole Sodium 40 mg 10/30/19 21:00 11/03/19 10:48 Pantoprazole 40 Mg Vial IVP 40 mg Q12HR KACI Administration Sodium Chloride 10 ml 10/21/19 21:00 11/03/19 10:49 Flush - Normal Saline IVF 10 ml Q12HR KACI Administration Sodium Chloride 10 ml 10/21/19 11:07 10/31/19 05:57 Flush - Normal Saline IVF 10 ml PRN PRN Administration Saline Flush Sodium Chloride 10 ml 10/27/19 12:06 10/31/19 20:33 Normal Saline Pf FS 10 ml PRN PRN Administration RECONSTITUTION - Exam General Appearance: awake alert Neck: no JVD Heart: RRR, no murmur Respiratory: CTAB Gastrointestinal: soft, non-tender, distended, diminished bowl sounds Extremities: no edema Hosp A/P (1) Adynamic ileus Code(s): K56.0 - PARALYTIC ILEUS Status: Acute (2) Ascites Code(s): R18.8 - OTHER ASCITES Status: Acute Qualifiers: Ascites type: due to alcoholic cirrhosis Qualified Code(s): K70.31 - Alcoholic cirrhosis of liver with ascites (3) Coagulopathy Status: Chronic (4) Small bowel obstruction Code(s): K56.609 - UNSP INTESTNL OBST, UNSP TO PARTIAL VERSUS COMPLETE OBST Status: Acute (5) Cirrhosis of liver Code(s): K74.60 - UNSPECIFIED CIRRHOSIS OF LIVER Status: Chronic Qualifiers: Ascites presence: with ascites (6) Malnutrition of moderate degree Code(s): E44.0 - MODERATE PROTEIN-CALORIE MALNUTRITION Status: Chronic (7) Peritonitis Code(s): K65.9 - PERITONITIS, UNSPECIFIED Status: Acute - Plan on TPN ileus appears to be improving expectant observation on iv antibx for peritonitis expresses desire to go home diet per GS
--- NOTE | 2019-11-03 13:33 | PRG ---
DATE OF SERVICE: 11/03/2019 SUBJECTIVE: Mr. Rooney had some bowel movements. He has had no dyspnea, no chest pain, no abdominal pain. He is voiding with an indwelling Clements catheter. His balance has been negative for the past 3 days, 1400 about approximately. OBJECTIVE: VITAL SIGNS: T-max has been 99.2, blood pressure 130/88, heart rate 102, respirations 18, and O2 saturation 98%. GENERAL: His exam shows the patient to be alert, in no distress, oriented. LUNGS: Clear to auscultation and percussion. HEART: S1 and S2, regular rate. ABDOMEN: Soft, not tender. LABORATORY DATA: White cell count 6.7, hemoglobin 9.0, platelets 113,000. Chemistry; creatinine 0.6, magnesium 1.5. Sodium 133. Microbiology from the ascitic fluid from October 25, E. cloacae, E. faecalis, Stenotrophomonas maltophilia. The current regimen includes fluconazole, Levaquin, and meropenem. He is also on vancomycin. He had a modified barium swallow with Speech eval, which showed a few episodes of penetration, but no aspiration. ASSESSMENT AND DISCUSSION: Alcoholism, liver cirrhosis, herniorrhaphy, mesh repair, adhesions, small bowel obstruction, exacerbation of obstruction, laparoscopy, removal of adhesions, reintervention with ascitic fluid sample with polymicrobial haily with evidence of peritonitis. The patient continues on meropenem, levofloxacin. We will go ahead and discontinue vancomycin and Diflucan, and hopefully will be able to discontinue antimicrobial therapy for discharge planning. Job ID: [id number] [facility]
[2019-11-03 14:31] VITALS: BMI 23.0
[2019-11-03] MEDS ORDERED: Acetaminophen 325 MG TAB PO PRN (14:33)
--- NOTE | 2019-11-03 15:18 | PRG ---
DATE OF SERVICE: 11/03/2019 SUBJECTIVE: Pio Rooney is doing well today. He has had a large bowel movement. He is tolerating his liquid diet. Swallow study on Saturday was unremarkable without aspiration. He has not had any nausea or vomiting. OBJECTIVE: VITAL SIGNS: Temperature 98.5 degrees, pulse 102, respirations 18, blood pressure 132/88. HEAD, EARS, EYES, NOSE, AND THROAT: Unremarkable. LUNGS: Clear to auscultation. CARDIAC: Regular rate and rhythm. No murmur or gallop. ABDOMEN: Soft, slightly protuberant. Minimal tympany. Midline wound well healed. MIL suction dressing wound removed yesterday. Clements catheter in place. EXTREMITIES: Decreased edema. LABORATORY DATA: White count 6, hemoglobin 9. Sodium 133, potassium 3.4. ASSESSMENT AND PLAN: Resolving ileus. Advance to a low-sodium diet. Discontinue TPN after this bag. Begin making discharge arrangements. Dr. Corona has ordered this today and is starting to transition him to oral antibiotics. Discontinue the vancomycin. I would leave his marcos in place to be removed next week. I think the patient should be ready to be discharged to a rehab facility. The family is not able to manage him at home due to severe weakness. Job ID: [id number]
[2019-11-03] MEDS: Fluconazole In NaCl,Iso-Osm 100 MG, Admixture Fee 1 EACH in Premix Bag 1 BAG IVPB SCH (16:21)
[2019-11-04] MEDS: MEROPENEM 1 GM/50 ML 1 GM in Premix Bag 1 BAG IVPB SCH ×2 (03:25→12:53)
[2019-11-04] MEDS ORDERED: Potassium Chloride 20 MEQ TAB PO SCH (08:00)
[2019-11-04] MEDS ORDERED: Spironolactone 25 MG TAB PO SCH (08:00)
[2019-11-04] MEDS ORDERED: Meloxicam 15 MG TAB PO SCH (09:00)
[2019-11-04] MEDS ORDERED: Furosemide 40 MG TAB PO SCH (09:00)
[2019-11-04] MEDS ORDERED: traMADol HCl 50 MG TAB PO SCH (09:00)
[2019-11-04] MEDS ORDERED: Atenolol 25 MG TAB PO SCH (09:00)
[2019-11-04] MEDS: Nystatin 500,000 UNITS/5 ML UDCUP SSW SCH ×2 (10:10→12:53)
[2019-11-04] MEDS: Heparin 5,000 UNITS/ML VIAL SC SCH (10:13)
[2019-11-04 16:05] VITALS: BP 123/87; TEMP 98.3
--- NOTE | 2019-11-05 10:40 | DIS ---
DATE OF ADMISSION: 10/21/2019 DATE OF DISCHARGE: 11/04/2019 TRANSFER / DISCHARGE SUMMARY: PRIMARY CARE PROVIDER: Adalid in [place]. DISPOSITION: Discharged to [facility] under the care of Dr. Warren. FINAL DIAGNOSES: 1. Small-bowel obstruction. 2. Cirrhosis of the liver. 3. Peritonitis. 4. Gastrointestinal bleeding. 5. Acute kidney injury. 6. Acute kidney failure. 7. Ileus. 8. Ascites. 9. Hypokalemia. 10. Hypomagnesemia. 11. Hypernatremia. 12. Coagulopathy. DISCHARGE MEDICATIONS: 1. Spironolactone 25 mg a day. 2. Omeprazole 40 mg a day. 3. Furosemide 40 mg a day. 4. Atenolol 25 mg a day. 5. Thiamine 100 mg a day. 6. Lactulose 20 g p.o. daily. 7. DuoNeb 3 mL nebulizer q.4h p.r.n. 8. Heparin 5000 units subcu twice a day. ALLERGIES: NO KNOWN DRUG ALLERGIES. PENDING AT THE TIME OF DISCHARGE: Nothing. CODE STATUS: DNAR. DIET: Heart healthy, low salt. HOSPITAL COURSE: The patient was admitted through [facility] Emergency Room to the Hospitalist Service. He presented with history of cirrhosis, etc., with abdominal pain. He had recently been in hospital in another town and was discharged after pulling out his NG tube. He has not been able to tolerate liquids or solids due to abdominal pain. His physical examination revealed a tender, distended abdomen. CT scan showed high-grade obstruction for small-bowel obstruction. He was hyponatremic. His BUN and creatinine 83/2.95, had a history of cirrhosis. His pertinent laboratory; white count 9.0, which went up to 21.4 at a peak on 10/22/2019, platelet count was 210,000, hemoglobin was 12.4. His INR was 1.9, on no anticoagulant. Sodium 123, potassium 3.5. Liver function test; bilirubin is only 1.2, AST 35, ALT 12, ammonia was 31. Dr. Yunior Felton was consulted on 10/21/2019. He recommended laparoscopy, placement of central line. On 10/20, he underwent surgery. Postop diagnosis was small-bowel obstruction secondary to adhesions. On 10/21, progress note per Dr. Felton, noted that he felt better. His NG tube was removed. He was put on total parenteral nutrition. Vitamins were given for alcohol withdrawal. On 10/22, he was not tolerating his diet. He was becoming more distended. TPN was continued. CT of the chest had been done, which revealed no pulmonary emboli, some mild edema. CT of the abdomen and pelvis revealed a 5 mm nodule in the right lung base. Followup was suggested. Some destruction was noted. Free fluid was noted. Hospitalist progress note on 10/24, it was felt that he was on alcohol withdrawal, was placed on Ativan p.r.n. and the ASE protocol, he was transferred to [facility]. Cultures were obtained. Zosyn started empirically, diagnosis when ileus was made. He eventually had no growth from blood, urine cultures. He did have ascitic fluid with Enterobacter, Enterococcus, and Stenotrophomonas. He was put on vancomycin and meropenem after that. His pertinent laboratory on 10/25, white count 12.9, hemoglobin 9.3, platelet count 192,000. Sodium 139, potassium 3.2, chloride 120, BUN 26, creatinine 1.44, blood sugars were running 100 to 160. He was also seen on 10/[address] Jono Corona, Infectious Disease. He was also placed on Diflucan. On 10/28, seen in consultation by Dr. Doreen Mays, Gastroenterology. On 10/31, he had a modified barium swallow. He had episodes of penetration without aspiration. On 11/02, his TPN was being tapered. He has had 1 to 2 bowel movements that day. He was tolerating a liquid diet. Today, all antibiotics have been discontinued. TPN has been discontinued. Cardiorespiratory exam is unremarkable. Abdomen is benign. He is being transferred to [facility] under the care of Dr. Warren for continuing care with PT, OT, Nutrition, etc. Eventually, he will be discharged from [facility] to his primary care doctor as an outpatient. The patient's course was a bit complicated, but he has had an excellent outcome with resolution of a small-bowel obstruction, ileus, peritonitis, etc. He should have his CBC and basic metabolic profile checked about once a week. Job ID: [id number] [facility]
== END 2019-11-04 17:32 | DRG 335 ==
LOC: ERS 23:15 → SURG A 10-21 02:15 → IMCU/EMU 10-21 18:14 → SURG B 10-22 10:20 → IMCU/EMU 10-25 07:11 → CCU 10-26 15:25 → IMCU/EMU 10-28 18:27 → SURG A 10-30 15:22
PROVIDERS: ADMIT Internal Medicine; ATTEND Internal Medicine
PROC: 0DNW4ZZ Release Peritoneum, Percutaneous Endoscopic Approach (ICD-10-PCS; principal; 2019-10-21)
PROC: 0WQF4ZZ Repair Abdominal Wall, Percutaneous Endoscopic Approach (ICD-10-PCS; 2019-10-21)
PROC: 02HV33Z Insertion of Infusion Device into Superior Vena Cava, Percutaneous Approach (ICD-10-PCS; 2019-10-21)
PROC: B548ZZA Ultrasonography of Superior Vena Cava, Guidance (ICD-10-PCS; 2019-10-21)
PROC: 3E0436Z Introduction of Nutritional Substance into Central Vein, Percutaneous Approach (ICD-10-PCS; 2019-10-21)
PROC: 0W9G0ZZ Drainage of Peritoneal Cavity, Open Approach (ICD-10-PCS; 2019-10-26)
PROC: 0DTJ0ZZ Resection of Appendix, Open Approach (ICD-10-PCS; 2019-10-26)
PROC: 30233L1 Transfusion of Nonautologous Fresh Plasma into Peripheral Vein, Percutaneous Approach (ICD-10-PCS; 2019-10-26)
PROC: 30233N1 Transfusion of Nonautologous Red Blood Cells into Peripheral Vein, Percutaneous Approach (ICD-10-PCS; 2019-10-26)
PROC: 30233K1 Transfusion of Nonautologous Frozen Plasma into Peripheral Vein, Percutaneous Approach (ICD-10-PCS; 2019-10-26)
DX: K56.50 Intestinal adhesions [bands], unspecified as to partial versus complete obstruction (principal); G93.41 Metabolic encephalopathy; A41.9 Sepsis, unspecified organism; J96.90 Respiratory failure, unspecified, unspecified whether with hypoxia or hypercapnia; K65.8 Other peritonitis; N17.9 Acute kidney failure, unspecified; E87.1 Hypo-osmolality and hyponatremia; R64 Cachexia; K42.0 Umbilical hernia with obstruction, without gangrene; E44.0 Moderate protein-calorie malnutrition; E87.0 Hyperosmolality and hypernatremia; Z20.828 Contact with and (suspected) exposure to other viral communicable diseases; Z66 Do not resuscitate; Z51.5 Encounter for palliative care; K70.31 Alcoholic cirrhosis of liver with ascites; E86.0 Dehydration; F17.210 Nicotine dependence, cigarettes, uncomplicated; F10.20 Alcohol dependence, uncomplicated; E87.6 Hypokalemia; K56.7 Ileus, unspecified; Z90.49 Acquired absence of other specified parts of digestive tract; Z79.899 Other long term (current) drug therapy; Z68.23 Body mass index [BMI] 23.0-23.9, adult
CPT/HCPCS: 36415; 36416; 36430; 71045; 71275; 74019; 74022; 74176; 74177; 74230; 80048; 80053; 80061; 80202; 82140; 82533; 82805; 83605; 83690; 83735; 83935; 84100; 84295; 84300; 84484; 85025; 85610; 85730; 86850; 86900; 86901; 87040; 87070; 87077; 87086; 87186; 87205; 87635; 88304; 90471; 90732; 93005; 93010; 94002; 94003; 94640; 96361; 96374; 96375; A4217; C9113; G0009; J1450; J1644; J1940; J1956; J2060; J2185; J2270; J2354; J2543; J2704; J3010; J3370; J3411; J3475; J3480; J3490; J7030; J7050; J7120; J7620; P9016; P9045; P9047; P9059; Q9967; S0020; U0003

== ENCOUNTER 2025-01-18 17:53 | Inpatient (IN) | payer OTHER ==
[2025-01-19] MEDS: Albumin 25% 25 GM (100 mL) BOT IVPB SCH ×2 (01:04→12:09)
[2025-01-19 06:07] LABS: #Basophils 0.04 10x3/uL (0.0-0.2); #Eosinophils 0.05 10x3/uL (0.0-0.7); #Monocytes 1.73 10x3/uL (0.11-0.59); #Neutrophils 15.04 10x3/uL (1.40-6.50); %Basophils 0.2 % (0.0-1.0); %Eosinophils 0.3 % (0.0-10.0); %Lymphocytes 11.5 % (21.0-51.0); %Monocytes 8.9 % (0.0-10.0); %Neutrophils 77.7 % (42.0-75.0); Hematocrit 22.0 % (42.0-52.0); Hemoglobin 7.2 g/dL (14.0-18.0); Mean Corpuscular Hemoglobin 30.5 pg (27.0-31.0); Mean Corpuscular Volume 93.2 fL (78.0-98.0); Platelet Count 71 10x3/uL (130-400); Red Blood Cell (RBC) Count 2.36 mill/uL (4.70-6.10); White Blood Cell (WBC) Count 19.36 10x3/uL (4.8-10.8)
[2025-01-19 06:14] LABS: Anion Gap 18 mmol/L (10-20); BUN (Urea Nitrogen) 66 mg/dL (8.4-25.7); Calc. Creatinine Clearance 11 mL/min (70-130); Calcium 8.4 mg/dL (7.8-10.44); Carbon Dioxide 13 mmol/L (23-31); Chloride 107 mmol/L (98-107); Glucose 72 mg/dL (80-115); Potassium 5.6 mmol/L (3.5-5.1); Sodium 132 mmol/L (136-145)
[2025-01-19] MEDS: Atenolol 25 MG TAB PO SCH (09:16)
[2025-01-19] MEDS: Folic Acid 1 MG TAB PO SCH (09:16)
[2025-01-19] MEDS: Cyanocobalamin (Vitamin B-12) 1,000 MCG TAB PO SCH (09:16)
[2025-01-19 19:43] LABS: INR-International Normal Ratio 2.1; PTT 46.8 sec (22.9-36.1); Prothrombin Time 23.6 sec (12.0-14.7)
[2025-01-20 05:20] LABS: #Basophils 0.03 10x3/uL (0.0-0.2); #Eosinophils 0.05 10x3/uL (0.0-0.7); #Monocytes 1.74 10x3/uL (0.11-0.59); #Neutrophils 12.09 10x3/uL (1.40-6.50); %Basophils 0.2 % (0.0-1.0); %Eosinophils 0.3 % (0.0-10.0); %Lymphocytes 12.3 % (21.0-51.0); %Monocytes 10.8 % (0.0-10.0); %Neutrophils 74.9 % (42.0-75.0); Hematocrit 19.2 % (42.0-52.0); Hemoglobin 6.5 g/dL (14.0-18.0); Mean Corpuscular Hemoglobin 30.1 pg (27.0-31.0); Mean Corpuscular Volume 88.9 fL (78.0-98.0); Platelet Count 63 10x3/uL (130-400); Red Blood Cell (RBC) Count 2.16 mill/uL (4.70-6.10); White Blood Cell (WBC) Count 16.13 10x3/uL (4.8-10.8)
[2025-01-20 05:33] LABS: Anion Gap 17 mmol/L (10-20); BUN (Urea Nitrogen) 79 mg/dL (8.4-25.7); Calc. Creatinine Clearance 10 mL/min (70-130); Calcium 8.3 mg/dL (7.8-10.44); Carbon Dioxide 15 mmol/L (23-31); Chloride 106 mmol/L (98-107); Glucose 84 mg/dL (80-115); Potassium 5.2 mmol/L (3.5-5.1); Sodium 133 mmol/L (136-145)
[2025-01-20 06:02] LABS: HBSAB Concentration Less than 8.00 mIU/mL; Hep B Core Total Ab NONREACTIVE (NonReactive); Hep B Core Total Index 0.49 S/CO (0-0.79); Hep B Surf Ag NONREACTIVE S/CO (NonReactive); Hep C IgG Ab NONREACTIVE S/CO (NonReactive); Hep C Index 0.49 S/CO (0-0.79)
[2025-01-20] MEDS ORDERED: Ondansetron PF 4 MG/2 ML Vial IVP PRN (08:46)
[2025-01-20] MEDS: Famotidine 20 MG TAB PO SCH (09:40)
[2025-01-20] MEDS: LOKELMA 10 GM PACKET PO SCH (09:40)
[2025-01-20] MEDS: Gabapentin 400 MG CAP PO SCH (09:45)
[2025-01-20 18:43] LABS: Hematocrit 26.3 % (42.0-52.0); Hemoglobin 9.1 g/dL (14.0-18.0)
[2025-01-20] MEDS: Gabapentin 300 MG CAP PO SCH (20:33)
[2025-01-20] MEDS: Acetaminophen 325 MG TAB PO PRN (20:33)
[2025-01-21 06:57] LABS: #Basophils 0.03 10x3/uL (0.0-0.2); #Eosinophils 0.03 10x3/uL (0.0-0.7); #Monocytes 1.24 10x3/uL (0.11-0.59); #Neutrophils 13.22 10x3/uL (1.40-6.50); %Basophils 0.2 % (0.0-1.0); %Eosinophils 0.2 % (0.0-10.0); %Lymphocytes 10.7 % (21.0-51.0); %Monocytes 7.5 % (0.0-10.0); %Neutrophils 80.2 % (42.0-75.0); Hematocrit 27.2 % (42.0-52.0); Hemoglobin 9.4 g/dL (14.0-18.0); Mean Corpuscular Hemoglobin 30.4 pg (27.0-31.0); Mean Corpuscular Volume 88.0 fL (78.0-98.0); Platelet Count 67 10x3/uL (130-400); Red Blood Cell (RBC) Count 3.09 mill/uL (4.70-6.10); White Blood Cell (WBC) Count 16.48 10x3/uL (4.8-10.8)
[2025-01-21 07:00] LABS: ALT (SGPT) 16 U/L (Less than 45); AST (SGOT) 66 U/L (11-34); Albumin 2.5 g/dL (3.1-4.5); Alkaline Phosphatase 142 U/L (40-110); Anion Gap 14 mmol/L (10-20); BUN (Urea Nitrogen) 67 mg/dL (8.4-25.7); Bilirubin, Total 2.0 mg/dL (0.3-1.2); Calc. Creatinine Clearance 13 mL/min (70-130); Calcium 8.7 mg/dL (7.8-10.44); Carbon Dioxide 15 mmol/L (23-31); Chloride 104 mmol/L (98-107); Globulin 5.5 g/dL (2.4-3.5); Glucose 94 mg/dL (80-115); Potassium 4.7 mmol/L (3.5-5.1); Sodium 128 mmol/L (136-145)
[2025-01-21] MEDS: Gabapentin 400 MG CAP PO SCH (08:06)
[2025-01-21 16:03] LABS: Bacteria/HPF None Seen HPF (None Seen); Glucose, Urine (Dipstick) Normal (Negative); Leukocyte 500 Leu/uL (Negative); Protein, Urine (Dipstick) 100 mg/dL (Neg-Trace); RBC/HPF Greater than 50 HPF (0-3); Specific Gravity, Urine 1.013 (1.002-1.036); WBC/HPF Greater than 50 HPF (0-3)
[2025-01-21] MEDS: cefTRIAXone\\ROCEPHIN 1 GM in Sodium Chloride 0.9% 100 ML IVPB SCH (16:26)
[2025-01-21] MEDS: Mupirocin 1 GM TUBE NASAL DECOLONIZATION NASAL SCH (20:48)
[2025-01-21] MEDS ORDERED: Vancomycin Diaylsis Sliding Scale (Wt 71-99) FS SCH (23:30)
[2025-01-21] MEDS: Vancomycin 1.5 GM / NS 500ML VIAL-2-BAG IVPB SCH (23:39)
[2025-01-22 07:08] LABS: #Basophils Less than 0.03 10x3/uL (0.0-0.2); #Eosinophils 0.04 10x3/uL (0.0-0.7); #Monocytes 2.22 10x3/uL (0.11-0.59); #Neutrophils 12.76 10x3/uL (1.40-6.50); %Basophils 0.1 % (0.0-1.0); %Eosinophils 0.2 % (0.0-10.0); %Lymphocytes 9.0 % (21.0-51.0); %Monocytes 13.2 % (0.0-10.0); %Neutrophils 76.1 % (42.0-75.0); Hematocrit 24.3 % (42.0-52.0); Hemoglobin 8.5 g/dL (14.0-18.0); Mean Corpuscular Hemoglobin 30.6 pg (27.0-31.0); Mean Corpuscular Volume 87.4 fL (78.0-98.0); Platelet Count 67 10x3/uL (130-400); Red Blood Cell (RBC) Count 2.78 mill/uL (4.70-6.10); White Blood Cell (WBC) Count 16.78 10x3/uL (4.8-10.8)
[2025-01-22 07:18] LABS: Anion Gap 13 mmol/L (10-20); BUN (Urea Nitrogen) 49 mg/dL (8.4-25.7); Calc. Creatinine Clearance 15 mL/min (70-130); Calcium 8.3 mg/dL (7.8-10.44); Carbon Dioxide 24 mmol/L (23-31); Chloride 101 mmol/L (98-107); Glucose 128 mg/dL (80-115); Potassium 4.0 mmol/L (3.5-5.1); Sodium 134 mmol/L (136-145)
[2025-01-23 00:52] LABS: Vancomycin, Trough 17.3 ug/mL
[2025-01-23 06:04] LABS: Hematocrit 23.7 % (42.0-52.0); Hemoglobin 8.1 g/dL (14.0-18.0); Mean Corpuscular Hemoglobin 30.6 pg (27.0-31.0); Mean Corpuscular Volume 89.4 fL (78.0-98.0); Platelet Count 68 10x3/uL (130-400); Red Blood Cell (RBC) Count 2.65 mill/uL (4.70-6.10); White Blood Cell (WBC) Count 16.84 10x3/uL (4.8-10.8)
[2025-01-23 06:27] LABS: Anion Gap 8 mmol/L (10-20); BUN (Urea Nitrogen) 32 mg/dL (8.4-25.7); Calc. Creatinine Clearance 19 mL/min (70-130); Calcium 8.0 mg/dL (7.8-10.44); Carbon Dioxide 26 mmol/L (23-31); Chloride 100 mmol/L (98-107); Glucose 98 mg/dL (80-115); Potassium 3.5 mmol/L (3.5-5.1); Sodium 130 mmol/L (136-145)
[2025-01-23 06:35] LABS: Platelet Adequacy Comment Platelets Decreased; Polychromasia SLIGHT = 2-3 cells HPF (0-2); Smudge Cells 10.9 %; Target Cells SLIGHT = 2-5 cells HPF (0-1)
[2025-01-23] MEDS: Multivit, Therapeutic 1 TAB PO SCH (09:18)
[2025-01-23] MEDS: Thiamine 100 MG TAB PO SCH (09:19)
[2025-01-23] MEDS ORDERED: Iopamidol 370 76% 100 ML VIAL ONE (14:44)
[2025-01-24 08:04] LABS: Vancomycin, Trough 25.4 ug/mL
[2025-01-24 08:08] LABS: Anion Gap 18 mmol/L (10-20); BUN (Urea Nitrogen) 44 mg/dL (8.4-25.7); Calc. Creatinine Clearance 14 mL/min (70-130); Calcium 9.0 mg/dL (7.8-10.44); Carbon Dioxide 21 mmol/L (23-31); Chloride 98 mmol/L (98-107); Glucose 80 mg/dL (80-115); Potassium 3.7 mmol/L (3.5-5.1); Sodium 133 mmol/L (136-145)
[2025-01-24 08:17] LABS: #Basophils Less than 0.03 10x3/uL (0.0-0.2); #Eosinophils 0.10 10x3/uL (0.0-0.7); #Monocytes 1.80 10x3/uL (0.11-0.59); #Neutrophils 11.53 10x3/uL (1.40-6.50); %Basophils 0.1 % (0.0-1.0); %Eosinophils 0.6 % (0.0-10.0); %Lymphocytes 13.4 % (21.0-51.0); %Monocytes 11.5 % (0.0-10.0); %Neutrophils 73.8 % (42.0-75.0); Hematocrit 29.4 % (42.0-52.0); Hemoglobin 9.6 g/dL (14.0-18.0); Mean Corpuscular Hemoglobin 29.6 pg (27.0-31.0); Mean Corpuscular Volume 90.7 fL (78.0-98.0); Platelet Count 89 10x3/uL (130-400); Red Blood Cell (RBC) Count 3.24 mill/uL (4.70-6.10); White Blood Cell (WBC) Count 15.64 10x3/uL (4.8-10.8)
[2025-01-24 09:22] VITALS: BMI 21.8
[2025-01-24] MEDS ORDERED: PROPOFOL 20 ML ONE (12:50)
[2025-01-24] MEDS ORDERED: fentaNYL PF 100 MCG/2 ML SYRINGE ONE (12:50)
[2025-01-24] MEDS ORDERED: Lidocaine 1% PF 5 ML VIAL ONE (12:50)
[2025-01-24] MEDS ORDERED: cefTRIAXone (ROCEPHIN) 1 GM VIAL ONE (12:56)
[2025-01-24] MEDS ORDERED: Rocuronium Bromide 10 MG/ML (10ML VIAL) ONE ×2 (12:59→13:19)
[2025-01-24] MEDS ORDERED: PHENYLEPHRINE-NS 100 MCG/ML 10 ML SYRINGE ONE ×2 (13:19→13:31)
[2025-01-24] MEDS ORDERED: PROPOFOL 200 MG/20 ML VIAL ONE (13:19)
[2025-01-24] MEDS ORDERED: Ondansetron PF 4 MG/2 ML Vial ONE (13:47)
[2025-01-24] MEDS ORDERED: Iopamidol 0 ML ONE (14:12)
[2025-01-24] MEDS ORDERED: Glycopyrrolate 0.2 MG/ML 5 ML SYRINGE ONE (14:22)
[2025-01-24] MEDS ORDERED: SUGAMMADEX SODIUM 200 MG/2 ML VIAL ONE (14:27)
[2025-01-24] MEDS: Guaifenesin DM 100-10/5 ML UDCUP PO PRN (16:19)
[2025-01-25 07:49] LABS: Anion Gap 11 mmol/L (10-20); BUN (Urea Nitrogen) 65 mg/dL (8.4-25.7); Calc. Creatinine Clearance 12 mL/min (70-130); Calcium 8.5 mg/dL (7.8-10.44); Carbon Dioxide 23 mmol/L (23-31); Chloride 98 mmol/L (98-107); Glucose 143 mg/dL (80-115); Potassium 4.1 mmol/L (3.5-5.1); Sodium 128 mmol/L (136-145); Vancomycin, Trough 22.1 ug/mL
[2025-01-25 07:56] LABS: #Basophils Less than 0.03 10x3/uL (0.0-0.2); #Eosinophils Less than 0.03 10x3/uL (0.0-0.7); #Monocytes 1.05 10x3/uL (0.11-0.59); #Neutrophils 13.43 10x3/uL (1.40-6.50); %Basophils 0.1 % (0.0-1.0); %Eosinophils 0.0 % (0.0-10.0); %Lymphocytes 8.7 % (21.0-51.0); %Monocytes 6.6 % (0.0-10.0); %Neutrophils 84.1 % (42.0-75.0); Hematocrit 27.4 % (42.0-52.0); Hemoglobin 8.8 g/dL (14.0-18.0); Mean Corpuscular Hemoglobin 29.7 pg (27.0-31.0); Mean Corpuscular Volume 92.6 fL (78.0-98.0); Platelet Count 94 10x3/uL (130-400); Red Blood Cell (RBC) Count 2.96 mill/uL (4.70-6.10); White Blood Cell (WBC) Count 15.97 10x3/uL (4.8-10.8)
[2025-01-25 09:43] LABS: Anisocytosis SLIGHT = 6-15 cells HPF (0-5); Macrocytosis SLIGHT = 6-15 cells HPF (0-5); Platelet Adequacy Comment Platelets Decreased; Polychromasia SLIGHT = 2-3 cells HPF (0-2); Target Cells SLIGHT = 2-5 cells HPF (0-1)
[2025-01-26 05:50] LABS: Hematocrit 23.2 % (42.0-52.0); Hemoglobin 7.8 g/dL (14.0-18.0); Mean Corpuscular Hemoglobin 30.2 pg (27.0-31.0); Mean Corpuscular Volume 89.9 fL (78.0-98.0); Platelet Count 66 10x3/uL (130-400); Red Blood Cell (RBC) Count 2.58 mill/uL (4.70-6.10); White Blood Cell (WBC) Count 15.12 10x3/uL (4.8-10.8)
[2025-01-26 05:59] LABS: Anion Gap 10 mmol/L (10-20); BUN (Urea Nitrogen) 34 mg/dL (8.4-25.7); Calc. Creatinine Clearance 19 mL/min (70-130); Calcium 7.8 mg/dL (7.8-10.44); Carbon Dioxide 28 mmol/L (23-31); Chloride 99 mmol/L (98-107); Glucose 105 mg/dL (80-115); Potassium 3.6 mmol/L (3.5-5.1); Sodium 133 mmol/L (136-145)
[2025-01-26 17:01] LABS: Iron 98 ug/dL (65-175); Iron Binding Capacity, Total 83 mcg/dL (261-462)
[2025-01-26] MEDS: Melatonin 3 MG TAB PO PRN (20:21)
[2025-01-27 05:59] LABS: Hematocrit 23.0 % (42.0-52.0); Hemoglobin 7.5 g/dL (14.0-18.0); Mean Corpuscular Hemoglobin 30.0 pg (27.0-31.0); Mean Corpuscular Volume 92.0 fL (78.0-98.0); Platelet Count 72 10x3/uL (130-400); Red Blood Cell (RBC) Count 2.50 mill/uL (4.70-6.10); White Blood Cell (WBC) Count 12.74 10x3/uL (4.8-10.8)
[2025-01-27 06:05] LABS: Anion Gap 13 mmol/L (10-20); BUN (Urea Nitrogen) 46 mg/dL (8.4-25.7); Calc. Creatinine Clearance 17 mL/min (70-130); Calcium 8.0 mg/dL (7.8-10.44); Carbon Dioxide 27 mmol/L (23-31); Chloride 98 mmol/L (98-107); Glucose 107 mg/dL (80-115); Potassium 4.0 mmol/L (3.5-5.1); Sodium 134 mmol/L (136-145)
[2025-01-27 07:00] LABS: Vancomycin, Trough 16.5 ug/mL
[2025-01-27] MEDS: Heparin 10,000 UNITS/ 10 ML VIAL CATH SCH (14:41)
[2025-01-27] MEDS: EPOETIN ALFA-EPBX (ESRD) 3,000 UNITS/ML VIAL IVP SCH (15:57)
[2025-01-27] MEDS: EPOETIN ALFA-EPBX (ESRD) 2,000 UNITS/ML VIAL IVP SCH (15:57)
[2025-01-28 05:49] LABS: #Basophils 0.05 10x3/uL (0.0-0.2); #Eosinophils 0.10 10x3/uL (0.0-0.7); #Monocytes 1.68 10x3/uL (0.11-0.59); #Neutrophils 8.10 10x3/uL (1.40-6.50); %Basophils 0.4 % (0.0-1.0); %Eosinophils 0.9 % (0.0-10.0); %Lymphocytes 13.3 % (21.0-51.0); %Monocytes 14.6 % (0.0-10.0); %Neutrophils 70.2 % (42.0-75.0); Hematocrit 24.0 % (42.0-52.0); Hemoglobin 8.0 g/dL (14.0-18.0); Mean Corpuscular Hemoglobin 30.5 pg (27.0-31.0); Mean Corpuscular Volume 91.6 fL (78.0-98.0); Platelet Count 78 10x3/uL (130-400); Red Blood Cell (RBC) Count 2.62 mill/uL (4.70-6.10); White Blood Cell (WBC) Count 11.54 10x3/uL (4.8-10.8)
[2025-01-28 05:52] LABS: ALT (SGPT) 38 U/L (Less than 45); AST (SGOT) 118 U/L (11-34); Albumin 1.6 g/dL (3.1-4.5); Alkaline Phosphatase 208 U/L (40-110); Anion Gap 8 mmol/L (10-20); BUN (Urea Nitrogen) 41 mg/dL (8.4-25.7); Bilirubin, Total 0.9 mg/dL (0.3-1.2); Calc. Creatinine Clearance 18 mL/min (70-130); Calcium 7.9 mg/dL (7.8-10.44); Carbon Dioxide 28 mmol/L (23-31); Chloride 101 mmol/L (98-107); Globulin 5.2 g/dL (2.4-3.5); Glucose 135 mg/dL (80-115); Potassium 3.8 mmol/L (3.5-5.1); Sodium 133 mmol/L (136-145)
[2025-01-28] MEDS: Albumin 25% 25 GM (100 mL) BOT IVPB SCH (10:25)
[2025-01-28] MEDS: Gabapentin 300 MG CAP PO SCH (21:54)
[2025-01-29 05:29] LABS: #Basophils 0.04 10x3/uL (0.0-0.2); #Eosinophils 0.17 10x3/uL (0.0-0.7); #Monocytes 1.96 10x3/uL (0.11-0.59); #Neutrophils 6.88 10x3/uL (1.40-6.50); %Basophils 0.4 % (0.0-1.0); %Eosinophils 1.5 % (0.0-10.0); %Lymphocytes 16.8 % (21.0-51.0); %Monocytes 17.9 % (0.0-10.0); %Neutrophils 62.6 % (42.0-75.0); Hematocrit 23.7 % (42.0-52.0); Hemoglobin 7.7 g/dL (14.0-18.0); Mean Corpuscular Hemoglobin 29.8 pg (27.0-31.0); Mean Corpuscular Volume 91.9 fL (78.0-98.0); Platelet Count 91 10x3/uL (130-400); Red Blood Cell (RBC) Count 2.58 mill/uL (4.70-6.10); White Blood Cell (WBC) Count 10.98 10x3/uL (4.8-10.8)
[2025-01-29 05:48] LABS: Albumin 2.6 g/dL (3.1-4.5); Anion Gap 13 mmol/L (10-20); BUN (Urea Nitrogen) 51 mg/dL (8.4-25.7); BUN/Creatinine Ratio 12.69; Calc. Creatinine Clearance 19 mL/min (70-130); Calcium 8.5 mg/dL (7.8-10.44); Carbon Dioxide 26 mmol/L (23-31); Chloride 99 mmol/L (98-107); Glucose 125 mg/dL (80-115); Potassium 4.2 mmol/L (3.5-5.1); Sodium 134 mmol/L (136-145)
[2025-01-29 07:47] LABS: Vancomycin, Trough 15.8 ug/mL
[2025-01-30 06:47] LABS: #Basophils 0.04 10x3/uL (0.0-0.2); #Eosinophils 0.09 10x3/uL (0.0-0.7); #Monocytes 2.09 10x3/uL (0.11-0.59); #Neutrophils 5.41 10x3/uL (1.40-6.50); %Basophils 0.4 % (0.0-1.0); %Eosinophils 0.9 % (0.0-10.0); %Lymphocytes 19.8 % (21.0-51.0); %Monocytes 21.8 % (0.0-10.0); %Neutrophils 56.5 % (42.0-75.0); Hematocrit 23.6 % (42.0-52.0); Hemoglobin 7.7 g/dL (14.0-18.0); Mean Corpuscular Hemoglobin 30.2 pg (27.0-31.0); Mean Corpuscular Volume 92.5 fL (78.0-98.0); Platelet Count 87 10x3/uL (130-400); Red Blood Cell (RBC) Count 2.55 mill/uL (4.70-6.10); White Blood Cell (WBC) Count 9.59 10x3/uL (4.8-10.8)
[2025-01-30 06:55] LABS: Albumin 2.3 g/dL (3.1-4.5); Anion Gap 10 mmol/L (10-20); BUN (Urea Nitrogen) 28 mg/dL (8.4-25.7); BUN/Creatinine Ratio 11.72; Calc. Creatinine Clearance 31 mL/min (70-130); Calcium 8.1 mg/dL (7.8-10.44); Carbon Dioxide 31 mmol/L (23-31); Chloride 98 mmol/L (98-107); Glucose 112 mg/dL (80-115); Potassium 3.8 mmol/L (3.5-5.1); Sodium 135 mmol/L (136-145)
[2025-01-31 06:23] LABS: Hematocrit 23.8 % (42.0-52.0); Hemoglobin 7.8 g/dL (14.0-18.0); Mean Corpuscular Hemoglobin 29.7 pg (27.0-31.0); Mean Corpuscular Volume 90.5 fL (78.0-98.0); Platelet Count 95 10x3/uL (130-400); Red Blood Cell (RBC) Count 2.63 mill/uL (4.70-6.10); White Blood Cell (WBC) Count 9.62 10x3/uL (4.8-10.8)
[2025-01-31 06:38] LABS: Albumin 2.1 g/dL (3.1-4.5); Anion Gap 16 mmol/L (10-20); BUN (Urea Nitrogen) 35 mg/dL (8.4-25.7); BUN/Creatinine Ratio 11.29; Calc. Creatinine Clearance 24 mL/min (70-130); Calcium 8.1 mg/dL (7.8-10.44); Carbon Dioxide 28 mmol/L (23-31); Chloride 94 mmol/L (98-107); Glucose 86 mg/dL (80-115); Potassium 4.0 mmol/L (3.5-5.1); Sodium 134 mmol/L (136-145)
[2025-01-31 07:45] LABS: Vancomycin, Trough 15.1 ug/mL
[2025-01-31 08:48] LABS: Microcytosis SLIGHT = 6-15 cells (100X) (0-5/hpf); Polychromasia SLIGHT = 2-3 cells (100X) (0-2/hpf); Target Cells SLIGHT = 2-5 cells (100X) (0-1/hpf)
[2025-01-31 08:49] LABS: Platelet Adequacy Comment Platelets Decreased; Schistocytes SLIGHT = 2-5 cells (100X) (0-1/hpf)
[2025-01-31 08:54] LABS: #Basophils 0.03 10x3/uL (0.0-0.2); #Eosinophils 0.11 10x3/uL (0.0-0.7); #Monocytes 1.98 10x3/uL (0.11-0.59); #Neutrophils 5.31 10x3/uL (1.40-6.50); %Basophils 0.3 % (0.0-1.0); %Eosinophils 1.1 % (0.0-10.0); %Lymphocytes 22.1 % (21.0-51.0); %Monocytes 20.6 % (0.0-10.0); %Neutrophils 55.3 % (42.0-75.0)
[2025-01-31] MEDS: Vancomycin HCl 750 MG in Sodium Chloride 0.9% 250 ML 250 ML IVPB SCH (16:18)
[2025-02-01 06:32] LABS: #Basophils 0.04 10x3/uL (0.0-0.2); #Eosinophils 0.14 10x3/uL (0.0-0.7); #Monocytes 1.88 10x3/uL (0.11-0.59); #Neutrophils 4.48 10x3/uL (1.40-6.50); %Basophils 0.5 % (0.0-1.0); %Eosinophils 1.6 % (0.0-10.0); %Lymphocytes 23.9 % (21.0-51.0); %Monocytes 21.8 % (0.0-10.0); %Neutrophils 51.9 % (42.0-75.0); Albumin 2.2 g/dL (3.1-4.5); Anion Gap 9 mmol/L (10-20); BUN (Urea Nitrogen) 26 mg/dL (8.4-25.7); BUN/Creatinine Ratio 10.66; Calc. Creatinine Clearance 31 mL/min (70-130); Calcium 8.2 mg/dL (7.8-10.44); Carbon Dioxide 25 mmol/L (23-31); Chloride 103 mmol/L (98-107); Glucose 79 mg/dL (80-115); Hematocrit 25.6 % (42.0-52.0); Hemoglobin 7.9 g/dL (14.0-18.0); Mean Corpuscular Hemoglobin 29.8 pg (27.0-31.0); Mean Corpuscular Volume 96.6 fL (78.0-98.0); Platelet Count 76 10x3/uL (130-400); Potassium 3.8 mmol/L (3.5-5.1); Red Blood Cell (RBC) Count 2.65 mill/uL (4.70-6.10); Sodium 133 mmol/L (136-145); White Blood Cell (WBC) Count 8.63 10x3/uL (4.8-10.8)
[2025-02-01] MEDS ORDERED: Bupivacaine 0.25% HCL 30 ML VIAL ONE (06:48)
[2025-02-01] MEDS ORDERED: fentaNYL PF 100 MCG/2 ML SYRINGE ONE (07:12)
[2025-02-01] MEDS ORDERED: Ondansetron PF 4 MG/2 ML Vial ONE (07:12)
[2025-02-01] MEDS ORDERED: Rocuronium Bromide 10 MG/ML (10ML VIAL) ONE (07:12)
[2025-02-01] MEDS ORDERED: Lidocaine 1% PF 5 ML VIAL ONE (07:12)
[2025-02-01] MEDS ORDERED: PROPOFOL 0 ML ONE (07:12)
[2025-02-01] MEDS ORDERED: CEFAZOLIN 1 GM VIAL ONE (07:24)
[2025-02-02 07:07] LABS: #Basophils Less than 0.03 10x3/uL (0.0-0.2); #Eosinophils Less than 0.03 10x3/uL (0.0-0.7); #Monocytes 2.84 10x3/uL (0.11-0.59); #Neutrophils 10.97 10x3/uL (1.40-6.50); %Basophils 0.1 % (0.0-1.0); %Eosinophils 0.0 % (0.0-10.0); %Lymphocytes 12.5 % (21.0-51.0); %Monocytes 17.9 % (0.0-10.0); %Neutrophils 69.1 % (42.0-75.0); Hematocrit 20.9 % (42.0-52.0); Hemoglobin 6.6 g/dL (14.0-18.0); Mean Corpuscular Hemoglobin 29.6 pg (27.0-31.0); Mean Corpuscular Volume 93.7 fL (78.0-98.0); Platelet Count 74 10x3/uL (130-400); Red Blood Cell (RBC) Count 2.23 mill/uL (4.70-6.10); White Blood Cell (WBC) Count 15.88 10x3/uL (4.8-10.8)
[2025-02-02 07:18] LABS: Albumin 2.1 g/dL (3.1-4.5); Anion Gap 13 mmol/L (10-20); BUN (Urea Nitrogen) 39 mg/dL (8.4-25.7); BUN/Creatinine Ratio 12.30; Calc. Creatinine Clearance 24 mL/min (70-130); Calcium 7.9 mg/dL (7.8-10.44); Carbon Dioxide 28 mmol/L (23-31); Chloride 98 mmol/L (98-107); Glucose 147 mg/dL (80-115); Potassium 4.0 mmol/L (3.5-5.1); Sodium 135 mmol/L (136-145)
[2025-02-02 07:19] LABS: Vancomycin, Trough 13.5 ug/mL
[2025-02-02] MEDS ORDERED: Vancomycin Diaylsis Sliding Scale (Wt 71-99) FS SCH (07:45)
[2025-02-02 14:12] VITALS: BMI 23.0
[2025-02-02] MEDS: Vancomycin 1 GM in Premix 1 BAG IVPB SCH (17:06)
[2025-02-03 06:06] LABS: #Basophils 0.03 10x3/uL (0.0-0.2); #Eosinophils 0.04 10x3/uL (0.0-0.7); #Monocytes 2.00 10x3/uL (0.11-0.59); #Neutrophils 6.28 10x3/uL (1.40-6.50); %Basophils 0.3 % (0.0-1.0); %Eosinophils 0.4 % (0.0-10.0); %Lymphocytes 17.7 % (21.0-51.0); %Monocytes 19.6 % (0.0-10.0); %Neutrophils 61.5 % (42.0-75.0); Hematocrit 24.3 % (42.0-52.0); Hemoglobin 7.8 g/dL (14.0-18.0); Mean Corpuscular Hemoglobin 29.7 pg (27.0-31.0); Mean Corpuscular Volume 92.4 fL (78.0-98.0); Platelet Count 63 10x3/uL (130-400); Red Blood Cell (RBC) Count 2.63 mill/uL (4.70-6.10); White Blood Cell (WBC) Count 10.21 10x3/uL (4.8-10.8)
[2025-02-03 06:15] LABS: Albumin 2.0 g/dL (3.1-4.5); Anion Gap 11 mmol/L (10-20); BUN (Urea Nitrogen) 24 mg/dL (8.4-25.7); BUN/Creatinine Ratio 10.53; Calc. Creatinine Clearance 33 mL/min (70-130); Calcium 7.9 mg/dL (7.8-10.44); Carbon Dioxide 31 mmol/L (23-31); Chloride 99 mmol/L (98-107); Glucose 113 mg/dL (80-115); Potassium 3.6 mmol/L (3.5-5.1); Sodium 137 mmol/L (136-145)
[2025-02-03 11:14] VITALS: BP 118/70; TEMP 98.2
== END 2025-02-03 18:55 | disposition home health service (06) | DRG 659 ==
LOC: T4-B 17:53
PROVIDERS: ADMIT Family Medicine; ATTEND Internal Medicine
PROC: 06HY33Z Insertion of Infusion Device into Lower Vein, Percutaneous Approach (ICD-10-PCS; 2025-01-19)
PROC: 30233N1 Transfusion of Nonautologous Red Blood Cells into Peripheral Vein, Percutaneous Approach (ICD-10-PCS; 2025-01-20)
PROC: 3E03329 Introduction of Other Anti-infective into Peripheral Vein, Percutaneous Approach (ICD-10-PCS; 2025-01-21)
PROC: 0T9B70Z Drainage of Bladder with Drainage Device, Via Natural or Artificial Opening (ICD-10-PCS; 2025-01-21)
PROC: 0T768DZ Dilation of Right Ureter with Intraluminal Device, Via Natural or Artificial Opening Endoscopic (ICD-10-PCS; principal; 2025-01-24)
PROC: BT1D1ZZ Fluoroscopy of Right Kidney, Ureter and Bladder using Low Osmolar Contrast (ICD-10-PCS; 2025-01-24)
PROC: 0T2BX0Z Change Drainage Device in Bladder, External Approach (ICD-10-PCS; 2025-01-24)
PROC: 30233J1 Transfusion of Nonautologous Serum Albumin into Peripheral Vein, Percutaneous Approach (ICD-10-PCS; 2025-01-28)
PROC: 0JH63XZ Insertion of Tunneled Vascular Access Device into Chest Subcutaneous Tissue and Fascia, Percutaneous Approach (ICD-10-PCS; 2025-02-01)
PROC: 02HV33Z Insertion of Infusion Device into Superior Vena Cava, Percutaneous Approach (ICD-10-PCS; 2025-02-01)
PROC: B5181ZA Fluoroscopy of Superior Vena Cava using Low Osmolar Contrast, Guidance (ICD-10-PCS; 2025-02-01)
PROC: 5A1D70Z Performance of Urinary Filtration, Intermittent, Less than 6 Hours Per Day (ICD-10-PCS; 2025-02-01)
PROC: 3E04329 Introduction of Other Anti-infective into Central Vein, Percutaneous Approach (ICD-10-PCS; 2025-02-01)
DX: N17.9 Acute kidney failure, unspecified (principal); A41.02 Sepsis due to Methicillin resistant Staphylococcus aureus; K76.7 Hepatorenal syndrome; I12.0 Hypertensive chronic kidney disease with stage 5 chronic kidney disease or end stage renal disease; E87.1 Hypo-osmolality and hyponatremia; E87.20 Acidosis, unspecified; E44.0 Moderate protein-calorie malnutrition; N18.6 End stage renal disease; N13.6 Pyonephrosis; E87.5 Hyperkalemia; D53.8 Other specified nutritional anemias; F17.210 Nicotine dependence, cigarettes, uncomplicated; G62.9 Polyneuropathy, unspecified; D63.1 Anemia in chronic kidney disease; K70.31 Alcoholic cirrhosis of liver with ascites; L89.619 Pressure ulcer of right heel, unspecified stage; D69.59 Other secondary thrombocytopenia; B95.62 Methicillin resistant Staphylococcus aureus infection as the cause of diseases classified elsewhere; E88.09 Other disorders of plasma-protein metabolism, not elsewhere classified; Z99.2 Dependence on renal dialysis; Z68.23 Body mass index [BMI] 23.0-23.9, adult; Z71.6 Tobacco abuse counseling; L97.519 Non-pressure chronic ulcer of other part of right foot with unspecified severity; K70.30 Alcoholic cirrhosis of liver without ascites; K72.10 Chronic hepatic failure without coma; F10.20 Alcohol dependence, uncomplicated; K43.9 Ventral hernia without obstruction or gangrene; E80.6 Other disorders of bilirubin metabolism; L08.9 Local infection of the skin and subcutaneous tissue, unspecified; R79.1 Abnormal coagulation profile; N40.0 Benign prostatic hyperplasia without lower urinary tract symptoms; Y84.6 Urinary catheterization as the cause of abnormal reaction of the patient, or of later complication, without mention of misadventure at the time of the procedure
CPT/HCPCS: 36415; 36416; 36430; 71045; 71046; 74177; 74420; 76705; 78315; 80048; 80053; 80069; 80202; 81001; 82607; 82728; 83540; 83550; 85025; 85027; 85610; 85730; 86704; 86706; 86803; 86850; 86900; 86901; 87040; 87070; 87077; 87086; 87149; 87186; 87205; 87340; 90935; 93306; 93976; 97139; A9503; C1752; C1769; C2617; G0257; J0169; J0665; J0690; J0696; J1100; J1642; J1644; J2185; J2250; J2405; J2704; J3373; J7030; J7050; P9016; P9047; Q5105; Q9967